=== PATIENT | male | born 1940 | race Caucasian/White ===

== ENCOUNTER 2017-11-30 11:09 | Emergency (ER) | payer MEDICARE, BC ==
[~2017-11-30] VITALS: Ht 182.9 cm; Wt 101.8 kg
[~2017-11-30 11:09] MED LIST: ALMACONE 360 M360 ML PO; BETAPACE160 MG PO; CORGARD40 MG PO; COUMADIN 5MG5 MG/TAB; DYAZIDE 25 MG-31 CAP PO; EFFEXOR 75M75 MG/TAB PO; HUMULIN N PE100 U/ML SC; LEVAQUIN 750MG750 M1 PO; LIPITOR20 MG PO; NORVASC 5MG5 MG/TAB PO; NOVLOG SQ; PREDNISONE10 MG PO; TYLENOL 325MG325 MG PO; VENTOLIN0.09 MG IH; VIAGRA50 M1 PO; XARELTO20 MG PO
[2017-11-30 11:13] VITALS: TEMP 98.1
[2017-11-30 14:05] LABS: BASO # 0.1 (0.0-0.2); BASO % 0.5 % (0.0-2.0); EOS # 0.2 (0.0-0.7); GRAN # 7.2 (1.4-6.5); GRAN % 73.3 % (42.2-75.2); HEMATOCRIT 41.8 % (42.0-52.0); HEMOGLOBIN 14.3 g/dl (13.5-18.0); INR 1.6 (0.8-3.0); LYMPH # 1.7 (1.2-3.4); LYMPH % 16.8 % (20.0-51.0); MEAN CELL VOLUME 90 fl (80.0-100.0); MEAN CORPUSCULAR HEMOGLOBIN 31 pg (27.0-31.0); MEAN CORPUSCULAR HGB CONC 34 g/dl (33.0-37.0); MEAN PLATELET VOLUME 11.1 fl (7.4-10.4); MONO # 0.7 (0.1-0.6); MONO % 7.1 % (1.7-9.3); PLATELET COUNT 192 K/mm3 (130-400); PROTHROMBIN TIME 18.6 SECONDS (9.7-12.8); RED BLOOD COUNT 4.66 M/mm3 (4.20-5.60); REDCELL DISTRIBUTION WIDTH-CV 12.9 % (11.5-14.5)
[2017-11-30 14:07] LABS: PARTIAL THROMBOPLASTIN TIME 33.5 SECONDS (26.0-37.0)
[2017-11-30 14:16] LABS: ALANINE AMINOTRANSFERASE 38 U/L (21-72); ALBUMIN 4.1 gm/dL (3.5-5.0); ALKALINE PHOSPHATASE 63 U/L (50-136); ANION GAP 10 mmol/L (7-16); AST,SGOT 27 U/L (15-37); BILIRUBIN,TOTAL 0.8 mg/dL (0.0-1.0); BLOOD UREA NITROGEN 19 mg/dL (9-20); CALCIUM 9.4 mg/dL (8.4-10.2); CARBON DIOXIDE 28 mmol/L (22-30); CHLORIDE 103 mmol/L (98-107); CREATININE, serum 0.94 mg/dL (0.66-1.25); GLUCOSE 151 mg/dL (74-106); POTASSIUM 3.3 mmol/L (3.4-5.0); SODIUM 141 mmol/L (137-145); TOTAL PROTEIN 6.9 gm/dL (6.4-8.2)
[2017-11-30 14:27] LABS: TROPONIN-I < 0.012 ng/mL (0.000-0.034)
[2017-11-30 16:16] VITALS: BP 149/92; PULSE 62
== END 2017-11-30 16:17 | disposition home or self-care (01) ==
LOC: COL.ER 11:09
PROVIDERS: Emergency Medicine
DX: G45.9 Transient cerebral ischemic attack, unspecified (principal); E87.6 Hypokalemia; I10 Essential (primary) hypertension; E78.5 Hyperlipidemia, unspecified; Z86.73 Personal history of transient ischemic attack (TIA), and cerebral infarction without residual deficits; Z87.891 Personal history of nicotine dependence; Z95.0 Presence of cardiac pacemaker; Z98.890 Other specified postprocedural states

== ENCOUNTER 2019-02-18 06:50 | Day surgery (SDC) | payer MEDICARE, BC ==
--- NOTE | 2019-02-17 10:19 | NUR ---
LEFT MESSAGE IN REGARDS TO PROCEDURE INSTRUCTIONS.
[2019-02-18] VITALS (7 sets, daily range): BP systolic 111–132; BP diastolic 80–95; PULSE 70–135; TEMP 97–97.9
[~2019-02-18] VITALS: Ht 183 cm; Wt 104.0 kg
[2019-02-18 07:26] LABS: HEMATOCRIT 42.7 % (42.0-52.0); HEMOGLOBIN 14.2 g/dl (13.5-18.0); MEAN CELL VOLUME 90 fl (80.0-100.0); MEAN CORPUSCULAR HEMOGLOBIN 30 pg (27.0-31.0); MEAN CORPUSCULAR HGB CONC 33 g/dl (33.0-37.0); MEAN PLATELET VOLUME 10.8 fl (7.4-10.4); PLATELET COUNT 209 K/mm3 (130-400); RED BLOOD COUNT 4.73 M/mm3 (4.20-5.60); REDCELL DISTRIBUTION WIDTH-CV 13.3 % (11.5-14.5)
[2019-02-18 07:33] LABS: INR 1.8 (0.8-3.0); PROTHROMBIN TIME 20.3 SECONDS (9.7-12.8)
[2019-02-18] MEDS ORDERED: K-DUR20 MEQ PO (07:41)
[2019-02-18] MEDS ORDERED: BETAPACE 120MG120 MG PO (07:42)
[2019-02-18 07:49] LABS: CALCIUM 9.4 mg/dL (8.4-10.2); CREATININE, serum 1.15 (0.66-1.25); POTASSIUM 3.5 mmol/L (3.4-5.0)
[2019-02-18] MEDS ORDERED: BETAPACE160 MG PO (08:57)
--- NOTE | 2019-02-18 09:15 | NUR ---
CV complete, Report from Monico RODRÍGUEZ. Pt sonya well, pt resting well in bed.
--- NOTE | 2019-02-18 10:15 | NUR ---
Pt has ambulated, voided and sonya PO intake s n/v. PIV removed with catheter intact.
--- NOTE | 2019-02-18 10:40 | NUR ---
Pt discharged per w/c by nurse with family.
== END 2019-02-18 13:01 | disposition home or self-care (01) ==
LOC: COL.CAR 06:50
PROVIDERS: Internal Medicine Cardiovascular Disease
DX: I48.4 Atypical atrial flutter (principal); I10 Essential (primary) hypertension; Z95.0 Presence of cardiac pacemaker; I48.0 Paroxysmal atrial fibrillation; H71.90 Unspecified cholesteatoma, unspecified ear; F32.9 Major depressive disorder, single episode, unspecified; E11.9 Type 2 diabetes mellitus without complications; Z79.01 Long term (current) use of anticoagulants; G31.84 Mild cognitive impairment of uncertain or unknown etiology; I34.0 Nonrheumatic mitral (valve) insufficiency; Z86.73 Personal history of transient ischemic attack (TIA), and cerebral infarction without residual deficits; E78.2 Mixed hyperlipidemia; G47.33 Obstructive sleep apnea (adult) (pediatric)
CPT/HCPCS: J2704; J7120

== ENCOUNTER → 2019-04-07 | Outpatient (RCR) | payer MEDICARE, BC ==
[~2019-04-07] MED LIST changes: +BETAPACE 120MG120 MG PO; +K-DUR20 MEQ PO
== END | disposition still patient (30) ==
LOC: WSPT → WSC 01-07 08:58 → WSPT 01-07 09:00
DX: M54.5 Low back pain (principal); R26.89 Other abnormalities of gait and mobility

== ENCOUNTER 2019-04-12 13:00 | Outpatient (RCR) | payer MEDICARE, BC | END 2019-07-11 | LOC: WSPT | DX: R26.89 Other abnormalities of gait and mobility (principal); M54.5 Low back pain ==

== ENCOUNTER 2020-02-18 17:54 | Inpatient (IN) | payer MEDICARE, BC ==
[~2020-02-18] VITALS: Ht 182.9 cm; Wt 98.7 kg
[2020-02-18 19:09] LABS: COLLECTION METHOD CATHETER
[2020-02-18 19:13] LABS: HEMATOCRIT 39.8 % (42.0-52.0); HEMOGLOBIN 13.4 g/dl (13.5-18.0); MEAN CELL VOLUME 90 fl (80.0-100.0); MEAN CORPUSCULAR HEMOGLOBIN 30 pg (27.0-31.0); MEAN CORPUSCULAR HGB CONC 34 g/dl (33.0-37.0); MEAN PLATELET VOLUME 10.9 fl (7.4-10.4); PLATELET COUNT 186 K/mm3 (130-400); RED BLOOD COUNT 4.43 M/mm3 (4.20-5.60); REDCELL DISTRIBUTION WIDTH-CV 13.1 % (11.5-14.5)
[2020-02-18 19:18] LABS: MUCOUS Present /lpf; PH 5 (5-8); SQUAMOUS EPITHELIAL None Seen /hpf; URINE APPEARANCE Clear; URINE BACTERIA Occasional /hpf; URINE BILIRUBIN Negative (NEGATIVE); URINE BLOOD 2+ (NEGATIVE); URINE COLOR Yellow; URINE GLUCOSE Negative (NEGATIVE); URINE KETONE 1+ (NEGATIVE); URINE LEUKOCYTE ESTERASE Negative (NEGATIVE); URINE NITRATE Positive (NEGATIVE); URINE PROTEIN(semi-quant) Negative (NEGATIVE); URINE UROBILINOGEN Negative (NEGATIVE)
[2020-02-18 19:45] LABS: ALBUMIN 3.8 gm/dL (3.5-5.0); BAND 1 % (0-10); BILIRUBIN,TOTAL 1.5 mg/dL (0.0-1.0); CREATININE, serum 0.94 (0.66-1.25); LYMPHOCYTE 1 % (20.0-51.0); NEUTROPHILS 92 % (42.0-75.2); PLATELET ESTIMATE NORMAL (NORMAL); POTASSIUM 3.2 mmol/L (3.4-5.0); TOTAL PROTEIN 6.9 gm/dL (6.4-8.2)
[2020-02-18] MEDS ORDERED: GLUCOPHAGE XR500 M1 PO (22:02)
[2020-02-18] MEDS ORDERED: NORVASC 5MG5 MG/TAB PO (22:05)
[2020-02-18] MEDS ORDERED: MYRBETR50MG PO (22:06)
--- NOTE | 2020-02-18 23:10 | NUR ---
Phone report received by Corie RODRÍGUEZ in ED.
[2020-02-18 23:36] LABS: INR 2.1 (0.8-3.0); PROTHROMBIN TIME 23.2 SECONDS (9.7-12.8)
--- NOTE | 2020-02-18 23:40 | NUR ---
Pt arrived via stretcher to ICU03. Personal belongings include clothing in bag placed into room closet. Bilateral hearing aides and corrective eye wear in place. Pt demonstrated weakness and confusion with orientation questions asked as well as weakness with increased assistance required with transfer with stretcher placed next to ICU bed and pt asked to rotate body in a scooting motion from one to the other. X3 assistance was required in order to get pt situated. Brief in place under hospital gown at this time. Pt is pleasant and cooperative with cares.
[2020-02-18 23:42] LABS: MAGNESIUM 1.7 mg/dL (1.6-2.3)
[2020-02-18 23:44] LABS: SALICYLATE < 1.0 mg/dL
[2020-02-18 23:50] VITALS: O2SAT 97
[2020-02-18 23:52] VITALS: O2SAT 97
[2020-02-18 23:52] LABS: TROPONIN-I < 0.012 ng/mL (0.000-0.035)
[2020-02-18 23:53] LABS: C-REACTIVE PROTEIN 22.6 mg/dL (0.0-0.9)
[2020-02-19] VITALS (682 sets, daily range): BP systolic 136–158; BP diastolic 67–106; PULSE 106–136; TEMP 98.5–100.6; O2SAT 85–98
[2020-02-19 02:56] LABS: LACTATE DEHYDROGENASE 619 U/L (313-618)
[2020-02-19 06:29] LABS: HEMATOCRIT 40.2 % (42.0-52.0); HEMOGLOBIN 13.8 g/dl (13.5-18.0); MEAN CELL VOLUME 90 fl (80.0-100.0); MEAN CORPUSCULAR HEMOGLOBIN 31 pg (27.0-31.0); MEAN CORPUSCULAR HGB CONC 34 g/dl (33.0-37.0); PLATELET COUNT 163 K/mm3 (130-400); RED BLOOD COUNT 4.49 M/mm3 (4.20-5.60); REDCELL DISTRIBUTION WIDTH-CV 13.3 % (11.5-14.5)
[2020-02-19 06:41] LABS: ALANINE AMINOTRANSFERASE 21 U/L (4-49); ALBUMIN 3.8 gm/dL (3.5-5.0); ALKALINE PHOSPHATASE 66 U/L (50-136); ANION GAP 11 mmol/L (7-16); AST,SGOT 24 U/L (15-37); BILIRUBIN,TOTAL 1.6 mg/dL (0.0-1.0); BLOOD UREA NITROGEN 15 mg/dL (9-20); CALCIUM 8.7 mg/dL (8.4-10.2); CARBON DIOXIDE 24 mmol/L (22-30); CHLORIDE 96 mmol/L (98-107); CREATININE, serum 0.81 (0.66-1.25); GLUCOSE 159 mg/dL (74-106); POTASSIUM 3.1 mmol/L (3.4-5.0); SODIUM 131 mmol/L (137-145); TOTAL PROTEIN 6.8 gm/dL (6.4-8.2)
[2020-02-19 06:58] LABS: INR 1.8 (0.8-3.0); PROTHROMBIN TIME 20.7 SECONDS (9.7-12.8)
[2020-02-19 07:06] LABS: TROPONIN-I 6 HR POST INITIAL < 0.012 ng/mL (0.000-0.034)
--- NOTE | 2020-02-19 07:30 | NUR ---
Bedside report provided to Gloria RODRÍGUEZ. Pt resting in bed at this time asking to use the bed so. Assistance provided. Pt assisted X2 staff members for repositioning up in bed. Pt able to turn side to side X1 staff assist. Following commands.
[2020-02-19 07:32] LABS: TSH w REFLEX 0.896 uIU/mL (0.465-4.680)
--- NOTE | 2020-02-19 08:08 | NUR ---
Report received from Hellen RODRÍGUEZ and care resumed.
[2020-02-19 08:26] LABS: BAND 2 % (0-10); LYMPHOCYTE 6 % (20.0-51.0); NEUTROPHILS 86 % (42.0-75.2)
[2020-02-19 08:27] LABS: PLATELET ESTIMATE NORMAL (NORMAL)
[2020-02-19 17:09] LABS: ARTERIAL BLD GAS TCO2 CT 20.6; ARTERIAL BLOOD GAS BASE EXCESS -1.3 (-2-2); ARTERIAL BLOOD GAS HCO3 19.8 meq/L (22-26); ARTERIAL BLOOD GAS PCO2 25.2 mmHg (35-45); ARTERIAL BLOOD GAS PO2 53.8 mmHg (80-100); ARTERIAL BLOOD GAS pH 7.51 (7.35-7.45)
--- NOTE | 2020-02-19 22:45 | NUR ---
Called patient's grandson, Daryl, back. Updated him and family on patients day and changes to plan of care. Informed them that his covid swab resulted as negative, however they are considering swabbing him again due to increased oxygen demand today. Told Daryl and family that they will be updated tomorrow after the doctors round.
[2020-02-20] VITALS (1087 sets, daily range): BP systolic 62–142; BP diastolic 06–99; PULSE 91–128; TEMP 97.7–98.3; O2SAT 75–100
--- NOTE | 2020-02-20 01:40 | NUR ---
Called Orquidea regarding pateints status and needing increased oxygen. patient now on 13.5L NC. She then put in orders for ABG and CT of chest.
[2020-02-20 02:29] LABS: ARTERIAL BLD GAS O2 SATURATION 92.9 % (92-100); ARTERIAL BLD GAS TCO2 CT 18.9; ARTERIAL BLOOD GAS BASE EXCESS -3.8 (-2-2); ARTERIAL BLOOD GAS HCO3 18.1 meq/L (22-26); ARTERIAL BLOOD GAS PCO2 25.6 mmHg (35-45); ARTERIAL BLOOD GAS PO2 62.4 mmHg (80-100); ARTERIAL BLOOD GAS pH 7.47 (7.35-7.45)
--- NOTE | 2020-02-20 02:45 | NUR ---
Patient back from CT, results showed MORAIMA LL PNA and MORAIMA pleural effusions. ABX changed, IVF d/c'd, 40mg IV lasix ordered and patient will be put on bipap. Also, reswabbed for COVID-19 and sent to lab.
[2020-02-20 05:40] LABS: HEMATOCRIT 42.6 % (42.0-52.0); HEMOGLOBIN 14.4 g/dl (13.5-18.0); MEAN CELL VOLUME 89 fl (80.0-100.0); MEAN CORPUSCULAR HEMOGLOBIN 30 pg (27.0-31.0); MEAN CORPUSCULAR HGB CONC 34 g/dl (33.0-37.0); MEAN PLATELET VOLUME 11.2 fl (7.4-10.4); PLATELET COUNT 184 K/mm3 (130-400); RED BLOOD COUNT 4.78 M/mm3 (4.20-5.60); REDCELL DISTRIBUTION WIDTH-CV 13.2 % (11.5-14.5)
[2020-02-20 05:54] LABS: INR 2.7 (0.8-3.0); PROTHROMBIN TIME 30.1 SECONDS (9.7-12.8)
[2020-02-20 05:55] LABS: ALBUMIN 3.6 gm/dL (3.5-5.0); BILIRUBIN,TOTAL 1.3 mg/dL (0.0-1.0); CALCIUM 8.1 mg/dL (8.4-10.2); CREATININE, serum 0.77 (0.66-1.25); MAGNESIUM 1.8 mg/dL (1.6-2.3); POTASSIUM 4.1 mmol/L (3.4-5.0)
[2020-02-20 06:10] LABS: BAND 5 % (0-10); LYMPHOCYTE 5 % (20.0-51.0); NEUTROPHILS 88 % (42.0-75.2); PLATELET ESTIMATE NORMAL (NORMAL)
--- NOTE | 2020-02-20 09:25 | NUR ---
SW contacted the patient's , Mona (ph#[phone]), to discuss discharge plan. The patient is on COVID precautions and pending results. The patient lives [place] with his . Mona reports that the patient started needing assistance with ADLs right before he was admitted [facility] and that he has a cane, walker, and wheelchair. The patient's PCP is Dr. Bryson Stover and he receives his medications at [facility]. The patient does not have advanced directives in EMR, but Mona reports that he does have them completed at at home. She states that she is the patient's DPOA-HC. Mona reports that she would be excited for the patient to return home. The patient was requiring 13 liters of oxygen. He was switched to a bipap. SW to continue to follow.
--- NOTE | 2020-02-20 12:00 | NUR ---
Pt self-discontinued external catheter stating "It was very uncomfortable, I let you know when I need to pee, or just put the urinal right there on the bed and I will use it"
--- NOTE | 2020-02-20 12:45 | NUR ---
Pt's spouse Mona called to provide update, pt's daughter and grandson on speaker phone. Updated on MD Nir and MD Gualberto's plan to intubate pt. Pt verbally agrees to intubation with mechanical ventilation - although pt not able to fully comprehend. Spouse Mona and family standing-by all agrees with plan to intubate and mechanically ventilate pt using [facility]. MD Nir to call family now for informed consent
--- NOTE | 2020-02-20 14:50 | NUR ---
Prior to now, pt has self-removed the BiPAP mask one time per hour due to disorientation and confusion - pt easily reoriented (with limited recall) and educated on importance of continuous use of BiPAP mask due to respiratory status. Pt remains disoriented/confused but now compliant with continuous BiPAP use since 1300. 1400 pt's spouse and other family called on room phone and family able to have conversation with each other. MD Nir to call family soon to explain plan of care involving mechanical ventilation then anesthesia will perform intubation
--- NOTE | 2020-02-20 15:15 | NUR ---
MD Nir states plan to reconsider intubation at this time - plan for ABG at 1630, and talk with MD Gualberto again after results of ABG
--- NOTE | 2020-02-20 16:14 | NUR ---
Pt voiding in urinal, requires assistance of one but remains continent and able to state need to urinate.
[2020-02-20 17:01] LABS: ARTERIAL BLD GAS TCO2 CT 18.3; ARTERIAL BLOOD GAS BASE EXCESS -4.9 (-2-2); ARTERIAL BLOOD GAS HCO3 17.5 meq/L (22-26); ARTERIAL BLOOD GAS PCO2 26.2 mmHg (35-45); ARTERIAL BLOOD GAS pH 7.44 (7.35-7.45)
[2020-02-20 17:02] LABS: ARTERIAL BLOOD GAS PO2 146.6 mmHg (80-100)
--- NOTE | 2020-02-20 18:04 | NUR ---
MD Nir notified pt drowsy and hypotensive - pt able to open eyes and follow commands - Precedex gtt discontinued (proper rate and dose confirmed with initiation rate/dose), esmolol to be titrated q5min per TORB from MD Nir 1839 MD Nir updated last vitals: 87/68(77); HR:108 ; SpO2:97% on 50%FiO2 - no further orders.
--- NOTE | 2020-02-20 18:46 | NUR ---
Levophed gtt scanned and placed on standby
--- NOTE | 2020-02-20 19:10 | NUR ---
Bed alarm checked and is on for Exiting setting
--- NOTE | 2020-02-20 19:29 | NUR ---
Abeba Dunn John, and Daryl called to update, all questions answered.
[2020-02-21] VITALS (872 sets, daily range): BP systolic 118–170; BP diastolic 86–121; PULSE 73–149; TEMP 97.6–98.7; O2SAT 85–100
--- NOTE | 2020-02-21 00:45 | NUR ---
Patient has had multiple complaints of the rectal tube being uncomfortable. Patient requests for it to be taken out. DIscussed with patient that he hasnt been able to get up to the commode safely and he is having very frequent loose stools. Tylenol was provided for discomfort. Patient called before medication had time to kick in. Patient refuses all comfort measures to include turning off his back, moving the tubing, medications, and using tv to distract. Patient refuses to try despite teaching. Rectal tube was working perfectly. Rectal tube removed. Pericare provided.
[2020-02-21 05:18] LABS: ARTERIAL BLD GAS O2 SATURATION 97.1 % (92-100); ARTERIAL BLD GAS TCO2 CT 17.4; ARTERIAL BLOOD GAS BASE EXCESS -4.6 (-2-2); ARTERIAL BLOOD GAS HCO3 16.7 meq/L (22-26); ARTERIAL BLOOD GAS PO2 85.2 mmHg (80-100); ARTERIAL BLOOD GAS pH 7.49 (7.35-7.45)
[2020-02-21 05:21] LABS: ARTERIAL BLOOD GAS PCO2 22.2 mmHg (35-45)
[2020-02-21 05:43] LABS: BASO % 0.3 % (0.0-2.0); EOS # 0.1 (0.0-0.7); GRAN # 9.6 (1.4-6.5); GRAN % 81.9 % (42.2-75.2); LYMPH # 0.9 (1.2-3.4); LYMPH % 7.5 % (20.0-51.0); MEAN CELL VOLUME 90 fl (80.0-100.0); MEAN CORPUSCULAR HGB CONC 34 g/dl (33.0-37.0); MONO % 8.7 % (1.7-9.3); PLATELET COUNT 186 K/mm3 (130-400); RED BLOOD COUNT 3.86 M/mm3 (4.20-5.60); REDCELL DISTRIBUTION WIDTH-CV 13.2 % (11.5-14.5)
[2020-02-21 05:49] LABS: INR 1.9 (0.8-3.0); PROTHROMBIN TIME 20.8 SECONDS (9.7-12.8)
[2020-02-21 06:02] LABS: ALBUMIN 2.8 gm/dL (3.5-5.0); BILIRUBIN,TOTAL 0.7 mg/dL (0.0-1.0); CALCIUM 7.6 mg/dL (8.4-10.2); CREATININE, serum 0.98 (0.66-1.25); TOTAL PROTEIN 5.6 gm/dL (6.4-8.2)
[2020-02-21 06:07] LABS: POTASSIUM 2.9 mmol/L (3.4-5.0)
[2020-02-21 06:20] LABS: HEMATOCRIT 34.6 % (42.0-52.0); MEAN CORPUSCULAR HEMOGLOBIN 30 pg (27.0-31.0)
[2020-02-21 06:21] LABS: HEMOGLOBIN 11.7 g/dl (13.5-18.0)
--- NOTE | 2020-02-21 12:09 | NUR ---
The patient's COVID results came back negative. The patient has been reduced to 4 liters of supplemental oxygen and is more awake and alert today. SW asked the hospitalist for PT/OT to be ordered. SW to continue to follow.
--- NOTE | 2020-02-21 19:30 | NUR ---
MD Jan notified of abdominal pain, distention, firmness and frequent urges to have BM with no results (throughout the day with with urges and no results). MD will see pt soon, then potentially order Xray of abdomen.
--- NOTE | 2020-02-21 19:37 | NUR ---
Pt had BM - see I&O intervention
--- NOTE | 2020-02-21 19:45 | NUR ---
Bedside report received from ANNE Chadwick
--- NOTE | 2020-02-21 22:35 | NUR ---
Rectal tube placed at this time. Patient tolerated ok. Balloon inflated with water to 45ml. Pericare provided. Will continue to monitor.
--- NOTE | 2020-02-21 23:45 | NUR ---
Patient calls at this time and wants the rectal tube removed at this time. Patient has only had the tube for 1hr. Attempted to teach the patient and provide other options for comfort and distraction to include watching TV, turning to his side, and trying some tylenol. Patient did not allow tylenol any time to kick in. He refuses all teaching and refuses to try any comfort measures. Rectal tube removed. Pericare provided.
[2020-02-22] VITALS (638 sets, daily range): BP systolic 95–172; BP diastolic 65–129; PULSE 69–142; TEMP 97.1–97.9; O2SAT 78–100
--- NOTE | 2020-02-22 04:00 | NUR ---
Patient has had over 20 liquid stools tonight as well as constant dribbling and urination with movement. Patient calls for the restroom every 10-20mins. Patient requires a heavy 2x assist to get up to bedside commode. Bedpan is being used now.
[2020-02-22 06:09] LABS: BASO % 0.3 % (0.0-2.0); EOS # 0.3 (0.0-0.7); EOS % 2.6 % (0-4.0); GRAN # 9.3 (1.4-6.5); HEMOGLOBIN 12.9 g/dl (13.5-18.0); LYMPH % 7.9 % (20.0-51.0); MEAN CELL VOLUME 89 fl (80.0-100.0); MEAN CORPUSCULAR HEMOGLOBIN 30 pg (27.0-31.0); MEAN CORPUSCULAR HGB CONC 34 g/dl (33.0-37.0); MEAN PLATELET VOLUME 10.7 fl (7.4-10.4); MONO # 1.4 (0.1-0.6); MONO % 11.5 % (1.7-9.3); PLATELET COUNT 248 K/mm3 (130-400); RED BLOOD COUNT 4.27 M/mm3 (4.20-5.60); REDCELL DISTRIBUTION WIDTH-CV 13.6 % (11.5-14.5)
[2020-02-22 06:14] LABS: INR 1.8 (0.8-3.0); PROTHROMBIN TIME 19.8 SECONDS (9.7-12.8)
[2020-02-22 06:18] LABS: ALBUMIN 3.3 gm/dL (3.5-5.0); BILIRUBIN,TOTAL 0.8 mg/dL (0.0-1.0); CALCIUM 8.3 mg/dL (8.4-10.2); CREATININE, serum 0.93 (0.66-1.25); POTASSIUM 3.2 mmol/L (3.4-5.0); TOTAL PROTEIN 6.2 gm/dL (6.4-8.2)
--- NOTE | 2020-02-22 07:15 | NUR ---
Patient has had an additional 20 stools since 4am. Patient has been confused and trying to climb out of bed since dose of ativan given. Bed alarm has been on. With the increase confused patient has been calling more frequently for the bedpan as he doesnt remember that he had just went 4mins prior. Despite teaching and showing him that he has already gone, he continues to request to get on the bedpan. Patient has scant amounts of stool each time, not enough to reach the bedpan. Will continue to monitor.
--- NOTE | 2020-02-22 07:20 | NUR ---
Bedside report given to ANNE Cid
--- NOTE | 2020-02-22 08:00 | NUR ---
Pt anxious with mild confusion, calls out for assistance with bedpan 4 times since 7am. Discussed with Dr Burciaga. Orders for Precedex. Gtt started with relief noted within 5min of starting.
--- NOTE | 2020-02-22 10:00 | NUR ---
The patient is to have a NICOLE with cardioversion today. He continues to have some confusion and tremors. SW contacted the patient's , Mona, to review discharge plan and discussed post-acute rehab. The patient's daughter, Abeba, was also on the phone. Mona and Abeba report that they would like for the patient to return back home upon discharge. Mona reports that two of her children will be able to help them about. SW discussed home health services. Mona was agreeable to try home health and chose [facility]. SAHRA contacted and faxed a referral to Almita at [facility]. SW awaiting their screen.
--- NOTE | 2020-02-22 11:45 | NUR ---
NICOLE cardioversion c Dr Zendejas at bedside. Synced/shocked at 150J with immediate conversion to Paced rhythm. Anesthesia overseeing sedation. Placed on Bipap-Esmolol gtt dcd. Precedex continued at 0.2mcg/kg. Tolerating well.
--- NOTE | 2020-02-22 14:50 | NUR ---
Almita, at [facility], reports that they are able to accept the patient for services. SW to inform the patient's family and will continue to follow.
[2020-02-23] VITALS (793 sets, daily range): BP systolic 149–167; BP diastolic 89–106; PULSE 69–82; TEMP 97.6–98.9; O2SAT 88–100
--- NOTE | 2020-02-23 07:00 | NUR ---
Report given to ANNE Chadwick.
[2020-02-23 07:24] LABS: ALBUMIN 3.2 gm/dL (3.5-5.0); BILIRUBIN,TOTAL 0.7 mg/dL (0.0-1.0); CALCIUM 8.4 mg/dL (8.4-10.2); CREATININE, serum 1.06 (0.66-1.25); PHOSPHOROUS 2.9 mg/dL (2.5-4.5); POTASSIUM 3.3 mmol/L (3.4-5.0)
[2020-02-23 07:55] LABS: BASO # 0.1 (0.0-0.2); BASO % 0.6 % (0.0-2.0); EOS # 0.5 (0.0-0.7); EOS % 4.6 % (0-4.0); GRAN # 7.5 (1.4-6.5); GRAN % 72.2 % (42.2-75.2); HEMOGLOBIN 11.6 g/dl (13.5-18.0); LYMPH # 1.2 (1.2-3.4); LYMPH % 11.4 % (20.0-51.0); MEAN CELL VOLUME 92 fl (80.0-100.0); MEAN CORPUSCULAR HEMOGLOBIN 30 pg (27.0-31.0); MEAN CORPUSCULAR HGB CONC 33 g/dl (33.0-37.0); MEAN PLATELET VOLUME 11.1 fl (7.4-10.4); MONO # 1.1 (0.1-0.6); MONO % 10.4 % (1.7-9.3); PLATELET COUNT 226 K/mm3 (130-400); RED BLOOD COUNT 3.87 M/mm3 (4.20-5.60); REDCELL DISTRIBUTION WIDTH-CV 13.7 % (11.5-14.5)
[2020-02-23 07:56] LABS: HEMATOCRIT 35.6 % (42.0-52.0)
--- NOTE | 2020-02-23 13:02 | NUR ---
Report phoned to ANNE Basilio
[2020-02-24] VITALS (1193 sets, daily range): BP systolic 110–180; BP diastolic 68–116; PULSE 74–116; TEMP 97–97.9; O2SAT 84–99
--- NOTE | 2020-02-24 01:35 | NUR ---
Called carmen and spoke to regarding patient having high SBP in the 160-'170's and DBP in the 120's. He gave a verbal phone order to administer Labetolol 10mg, IV PRN Q6hr for SBP >140.
--- NOTE | 2020-02-24 04:17 | NUR ---
Called back again regarding SBP's that increased to 180's over 130's. He gave a verbal phone order to give a one time dose of Labetolol IV, 20mg.
--- NOTE | 2020-02-24 04:30 | NUR ---
Patient complaining of 9/10 abdominal pain. RN noticed he went back to Afib and still having high SBP's. An order for an EKG was put in.
--- NOTE | 2020-02-24 05:45 | NUR ---
Patient c/o increased abdominal pain and pain in his bladder area. Abdomen is firm and distended. RN did a bladder scan and it revealed more than 1200ml in bladder.
--- NOTE | 2020-02-24 05:51 | NUR ---
Called Irving and left a message with the RN regarding patient going back into afib, having abdominal pain, and having an abnormal EKG and high SBP's.
--- NOTE | 2020-02-24 05:57 | NUR ---
called back and was told all concerns of patient, he said he would order metropolol and for a valerio catheter to get placed due to bladder scan revealing more than 1200ml in bladder. However, he never put orders in and instead videoed into the room and said he will let cardiology handle it.
--- NOTE | 2020-02-24 06:00 | NUR ---
Cardiology paged regarding patient going back into afib and abnormal EKG results of ST depression. No call back was given at this time.
--- NOTE | 2020-02-24 06:00 | NUR ---
was called to ask for order to place valerio cather. He said that was alright and a verbal phone order was put in and valerio cather was placed.
[2020-02-24 06:13] LABS: BASO # 0.1 (0.0-0.2); BASO % 0.4 % (0.0-2.0); EOS # 0.6 (0.0-0.7); EOS % 4.4 % (0-4.0); GRAN # 9.7 (1.4-6.5); GRAN % 72.9 % (42.2-75.2); HEMATOCRIT 39.9 % (42.0-52.0); HEMOGLOBIN 13.4 g/dl (13.5-18.0); LYMPH # 1.6 (1.2-3.4); LYMPH % 11.7 % (20.0-51.0); MEAN CELL VOLUME 89 fl (80.0-100.0); MEAN CORPUSCULAR HEMOGLOBIN 30 pg (27.0-31.0); MEAN CORPUSCULAR HGB CONC 34 g/dl (33.0-37.0); MEAN PLATELET VOLUME 10.5 fl (7.4-10.4); MONO # 1.2 (0.1-0.6); MONO % 9.4 % (1.7-9.3); PLATELET COUNT 252 K/mm3 (130-400); RED BLOOD COUNT 4.48 M/mm3 (4.20-5.60); REDCELL DISTRIBUTION WIDTH-CV 13.4 % (11.5-14.5)
--- NOTE | 2020-02-24 06:15 | NUR ---
Sage catheter placed, instantly got out 1350ml of urine out and patient immediately art relief. Blood pressures also started to trend down. Urine is clear and light yello.
[2020-02-24 06:26] LABS: ALBUMIN 3.8 gm/dL (3.5-5.0); BILIRUBIN,TOTAL 0.8 mg/dL (0.0-1.0); CREATININE, serum 0.96 (0.66-1.25); MAGNESIUM 1.7 mg/dL (1.6-2.3); POTASSIUM 3.1 mmol/L (3.4-5.0); TOTAL PROTEIN 6.9 gm/dL (6.4-8.2)
--- NOTE | 2020-02-24 07:06 | NUR ---
EKG OBTAINED, ACUTE WY WAS RESULT. PRINT OUT OF EKG GIVEN TO RN.
--- NOTE | 2020-02-24 07:15 | NUR ---
Report given to ANNE Cid. She was notified that cardiology was paged and did not call back regarding the patient going back into afib/aflutter. She said she would let him know and give them a page again.
--- NOTE | 2020-02-24 19:15 | NUR ---
RECEIVED REPORT FROM ANNE KERN. PT LYING IN BED ON RA. VSS. SEE GTT TITRATION FLOWSHEET. VSS. CALL LIGHT WITHIN REACH. PT LAUGHING AND CHATTING WELL WITH NURSES. FC PATENT AND DRAINING TO GRAVITY.
[2020-02-25] VITALS (644 sets, daily range): BP systolic 118–163; BP diastolic 91–111; PULSE 104–129; TEMP 97.1–98; O2SAT 81–98
--- NOTE | 2020-02-25 03:31 | NUR ---
ZOLTAN REYES NOTIFIED OF PT'S HR CONSISTENTLY STAYING ABOVE 110 TO 130 AFIB. PHYSICIAN STATES TO CONTACT CARDIOLOGY FOR FURTHER INSTRUCTIONS.
--- NOTE | 2020-02-25 03:35 | NUR ---
SPOKE TO DR ARITA ABOUT PT'S HR STAYING BETWEEN 110-130 MOSTLY , PHYSICIAN STATES OK TO TITRATE CARDIZEM GTT UP TO MAX ACCORDING TO PROTOCOL, SEE MAR FOR NEW ORDERS.
[2020-02-25 06:20] LABS: BASO % 0.4 % (0.0-2.0); EOS # 0.5 (0.0-0.7); EOS % 4.6 % (0-4.0); GRAN # 7.5 (1.4-6.5); GRAN % 66.7 % (42.2-75.2); HEMATOCRIT 40.3 % (42.0-52.0); HEMOGLOBIN 13.6 g/dl (13.5-18.0); LYMPH # 1.7 (1.2-3.4); LYMPH % 15.2 % (20.0-51.0); MEAN CELL VOLUME 88 fl (80.0-100.0); MEAN CORPUSCULAR HEMOGLOBIN 30 pg (27.0-31.0); MEAN CORPUSCULAR HGB CONC 34 g/dl (33.0-37.0); MEAN PLATELET VOLUME 10.3 fl (7.4-10.4); MONO # 1.3 (0.1-0.6); MONO % 11.8 % (1.7-9.3); PLATELET COUNT 275 K/mm3 (130-400); RED BLOOD COUNT 4.56 M/mm3 (4.20-5.60); REDCELL DISTRIBUTION WIDTH-CV 13.3 % (11.5-14.5)
[2020-02-25 06:36] LABS: ALANINE AMINOTRANSFERASE 30 U/L (4-49); ALBUMIN 3.6 gm/dL (3.5-5.0); AST,SGOT 35 U/L (15-37); BILIRUBIN,TOTAL 0.8 mg/dL (0.0-1.0); BLOOD UREA NITROGEN 11 mg/dL (9-20); CARBON DIOXIDE 29 mmol/L (22-30); GLUCOSE 139 mg/dL (74-106); MAGNESIUM 1.8 mg/dL (1.6-2.3); SODIUM 135 mmol/L (137-145); TOTAL PROTEIN 6.6 gm/dL (6.4-8.2)
[2020-02-25 06:38] LABS: ALKALINE PHOSPHATASE 62 U/L (50-136); CALCIUM 8.7 mg/dL (8.4-10.2); CHLORIDE 97 mmol/L (98-107)
[2020-02-25 06:39] LABS: POTASSIUM 2.9 mmol/L (3.4-5.0)
[2020-02-25 06:45] LABS: ANION GAP 9 mmol/L (7-16)
--- NOTE | 2020-02-25 19:05 | NUR ---
RECEIVED REPORT FROM ANNE KERN. PT ASSISTED UP IN BED TO EAT DINNER. CALL LIGHT WITHIN REACH. PT ON RA. VSS. FC PATENT AND DRAINING TO GRAVITY.
--- NOTE | 2020-02-25 20:10 | NUR ---
NOTIFIED ZOLTAN REYES OF PT'S RFA WITH SMALL WOUND ABOUT DIME SIZE NOTED WITH WHITE FLUID THAT MOVES UNDER SKIN AND AREA IS RED AND HARD, NO MAJOR TEMP CHANGES BETWEEN DIFFERENT PART OF ARM, PT WARM TO TOUCH, TEMP 98.0 ORALLY. REDDENED AREA 3 INCHES LONG AND ABOUT 1-1.25 INCHES WIDE. PHYSICIAN STATES WILL COME EVAL LATER.
--- NOTE | 2020-02-25 20:40 | NUR ---
ZOLTAN REYES AT BEDSIDE FOR RFA ASSESSMENT OF WOUND. LINES DRAWN AROUND REDNESS AND WOUND CULTURE OBTAINED BY PHYSICIAN. SEE NEW ORDERS.
[2020-02-26] VITALS (691 sets, daily range): BP systolic 121–135; BP diastolic 78–96; PULSE 85–110; TEMP 97–99.6; O2SAT 82–99
[2020-02-26 05:38] LABS: BASO # 0.1 (0.0-0.2); BASO % 0.6 % (0.0-2.0); EOS # 0.5 (0.0-0.7); EOS % 4.9 % (0-4.0); GRAN # 6.8 (1.4-6.5); GRAN % 68.4 % (42.2-75.2); HEMATOCRIT 38.7 % (42.0-52.0); LYMPH # 1.5 (1.2-3.4); LYMPH % 15.1 % (20.0-51.0); MEAN CELL VOLUME 89 fl (80.0-100.0); MEAN CORPUSCULAR HEMOGLOBIN 30 pg (27.0-31.0); MEAN CORPUSCULAR HGB CONC 34 g/dl (33.0-37.0); MONO % 9.9 % (1.7-9.3); PLATELET COUNT 271 K/mm3 (130-400); RED BLOOD COUNT 4.34 M/mm3 (4.20-5.60); REDCELL DISTRIBUTION WIDTH-CV 13.2 % (11.5-14.5)
[2020-02-26 05:42] LABS: CALCIUM 8.4 mg/dL (8.4-10.2); CREATININE, serum 0.94 (0.66-1.25); POTASSIUM 3.2 mmol/L (3.4-5.0)
--- NOTE | 2020-02-26 07:26 | NUR ---
Vancomycin Initial Dosing Pharmacy Note Ordering provider: Orquidea Jiemnez/Diamond Loyola W., MD Indication/duration: CELLULITIS Relevant comorbidities: DM2 LABS: WBC 9.9, SCr 0.9, CrCl >60 Recommendation: vancomycin 10 mg/kg Loading dose: 1.5 grams Maintenance dose: 1 gram every 12 hours Trough goal: 10-15 ug/mL. trough 02/26 @ 1078
[2020-02-27 00:02] VITALS: BP 129/83; PULSE 115; TEMP 99.1
[2020-02-27 03:35] VITALS: BP 148/102; PULSE 105; TEMP 98.6
[2020-02-27 03:55] VITALS: BP 150/90
--- NOTE | 2020-02-27 03:55 | NUR ---
VILLANUEVA WAS DISCONTINUED AT 0350
--- NOTE | 2020-02-27 05:47 | NUR ---
PATIENT CAME UP TO THE UNIT FROM THE ICU. PATIENT HAS SLEPT ALL NIGHT LONG WITH NO COMPLAINTS. PATIENT IS ORIENTATED AND ALERT BUT DOES HAVE PERIODS OF CONFUSION. KAY WAS D/C'ED AT 0350. WILL REPORT OFF TO DAY SHIFT UPON THEIR ARRIVAL
[2020-02-27 07:17] LABS: BASO # 0.1 (0.0-0.2); BASO % 0.5 % (0.0-2.0); EOS # 0.5 (0.0-0.7); GRAN # 9.6 (1.4-6.5); GRAN % 73.8 % (42.2-75.2); HEMATOCRIT 39.6 % (42.0-52.0); HEMOGLOBIN 13.3 g/dl (13.5-18.0); LYMPH # 1.8 (1.2-3.4); LYMPH % 13.9 % (20.0-51.0); MEAN CELL VOLUME 90 fl (80.0-100.0); MEAN CORPUSCULAR HEMOGLOBIN 30 pg (27.0-31.0); MEAN CORPUSCULAR HGB CONC 34 g/dl (33.0-37.0); MEAN PLATELET VOLUME 10.3 fl (7.4-10.4); MONO # 0.9 (0.1-0.6); PLATELET COUNT 290 K/mm3 (130-400); REDCELL DISTRIBUTION WIDTH-CV 13.2 % (11.5-14.5)
[2020-02-27 07:34] VITALS: BP 131/88; PULSE 105; TEMP 98.2
[2020-02-27 07:34] LABS: ALBUMIN 3.5 gm/dL (3.5-5.0); BILIRUBIN,TOTAL 0.6 mg/dL (0.0-1.0); CALCIUM 8.6 mg/dL (8.4-10.2); CREATININE, serum 1.01 (0.66-1.25); MAGNESIUM 1.6 mg/dL (1.6-2.3); TOTAL PROTEIN 6.5 gm/dL (6.4-8.2)
--- NOTE | 2020-02-27 08:00 | NUR ---
Assessment complete. Pt is alert and oriented but talks in a confused manner. His daughter called me just before I went into the room stating that he called her in tears and wanted me to call her back after seeing him. I spoke with him and he was emotional about not seeing his grandson but no distress was related to his health. I attempted to call her back to inform her of this but failed to get an answer. PICC site is CD&I at this time. He denies any pain or discomfort. He is currently sitting in the recliner with chase bed alarm in place. No other needs. Call light is in reach
[2020-02-27] MEDS ORDERED: DOXYCYCLINE 10100 MG PO (11:07)
[2020-02-27] MEDS ORDERED: PACERONE400 MG PO (11:07)
[2020-02-27] MEDS ORDERED: CARDIZEM CD360 MG PO (11:08)
[2020-02-27] MEDS ORDERED: TOPROL XL 50MG50 MG PO (11:08)
[2020-02-27] MEDS ORDERED: K-TAB20 PO (11:09)
[2020-02-27] MEDS ORDERED: PROBIOTIC GOLD1 EACH PO (11:10)
--- NOTE | 2020-02-27 11:39 | NUR ---
Sales Development Associate attended clinical rounds with the team and patient to discharge home today with [facility]. SAHRA contacted patient's , Mona to provide update. SAHRA advised Mona that per PT, Kvng patient needs to have support when he is up. Mona advised that she will be home at all time and that patient's three children are taking turns being at home with patient to provide additional support. SAHRA met with patient and read IM form aloud. Patient verbalized understanding and provided verbal consent as signature. SAHRA placed form in chart and provided copy to patient. SAHRA contacted Kathy at [facility] and faxed discharge orders. No additional needs at this time.
--- NOTE | 2020-02-27 15:15 | NUR ---
Pt left the floor at this time. Belongings were taken. Discharge instructions discussed. No further questions. Escorted out via wheel chair.
--- NOTE | 2020-02-27 17:12 | NUR ---
Pts son and called to clarify why pt had an inhaler in his belongings given that it was not on his discharge medications. I informed her that it was a PRN medication while he was here in hospital but it was not on his discharge medications and that he did not accept or refused it each time it was offered by respiratory therapy during his stay.
== END 2020-02-27 17:14 | disposition home or self-care (01) | DRG 871 ==
LOC: COL.ER 17:54 → ICU 20:37 → MEDICAL 02-26 19:47
PROVIDERS: Emergency Medicine; Internal Medicine; Internal Medicine Pulmonary Disease; Nurse Practitioner; Nurse Practitioner Family; ADMIT Student in an Organized Health Care Education/Training Program
PROC: 02HV33Z Insertion of Infusion Device into Superior Vena Cava, Percutaneous Approach (ICD-10-PCS; 2020-02-20)
PROC: 5A2204Z Restoration of Cardiac Rhythm, Single (ICD-10-PCS; principal; 2020-02-24)
DX: A41.89 Other specified sepsis (principal); G93.41 Metabolic encephalopathy; J18.1 Lobar pneumonia, unspecified organism; J90 Pleural effusion, not elsewhere classified; L03.113 Cellulitis of right upper limb; K52.1 Toxic gastroenteritis and colitis; I48.91 Unspecified atrial fibrillation; G47.33 Obstructive sleep apnea (adult) (pediatric); E11.9 Type 2 diabetes mellitus without complications; I49.5 Sick sinus syndrome; R65.20 Severe sepsis without septic shock; E83.42 Hypomagnesemia; E87.6 Hypokalemia; I25.10 Atherosclerotic heart disease of native coronary artery without angina pectoris; Z20.828 Contact with and (suspected) exposure to other viral communicable diseases; Z95.0 Presence of cardiac pacemaker; Z86.718 Personal history of other venous thrombosis and embolism; Z86.73 Personal history of transient ischemic attack (TIA), and cerebral infarction without residual deficits; Z79.84 Long term (current) use of oral hypoglycemic drugs; Z87.891 Personal history of nicotine dependence; T36.95XA Adverse effect of unspecified systemic antibiotic, initial encounter
CPT/HCPCS: 99223-AI; 99232-AI; 99233-AI; A4314; C1751; C1892; J0282; J0456; J0696; J1160; J1815; J1940; J2060; J2543; J2704; J3370; J3475; J3480; J7030; J7050; J7060; Q9967

== ENCOUNTER 2020-03-05 11:31 | Inpatient (IN) | payer MEDICARE, BC ==
[~2020-03-05] VITALS: Wt 92.8 kg
[~2020-03-05 11:31] MED LIST changes: +CARDIZEM CD360 MG PO; +DOXYCYCLINE 10100 MG PO; +GLUCOPHAGE XR500 M1 PO; +K-TAB20 PO; +MYRBETR50MG PO; +PACERONE400 MG PO; +PROBIOTIC GOLD1 EACH PO; +TOPROL XL 50MG50 MG PO
[2020-03-05 12:15] LABS: BASO # 0.1 (0.0-0.2); BASO % 0.4 % (0.0-2.0); EOS % 0.3 % (0-4.0); GRAN # 10.7 (1.4-6.5); GRAN % 79.7 % (42.2-75.2); HEMATOCRIT 42.5 % (42.0-52.0); LYMPH # 1.6 (1.2-3.4); LYMPH % 11.9 % (20.0-51.0); MEAN CELL VOLUME 90 fl (80.0-100.0); MEAN CORPUSCULAR HEMOGLOBIN 30 pg (27.0-31.0); MEAN CORPUSCULAR HGB CONC 33 g/dl (33.0-37.0); MEAN PLATELET VOLUME 10.7 fl (7.4-10.4); MONO % 7.3 % (1.7-9.3); PLATELET COUNT 352 K/mm3 (130-400); RED BLOOD COUNT 4.72 M/mm3 (4.20-5.60); REDCELL DISTRIBUTION WIDTH-CV 13.3 % (11.5-14.5)
[2020-03-05 12:19] LABS: ALBUMIN 4.2 gm/dL (3.5-5.0); BILIRUBIN,TOTAL 0.8 mg/dL (0.0-1.0); C-REACTIVE PROTEIN 4.1 mg/dL (0.0-0.9); CALCIUM 10.2 mg/dL (8.4-10.2); CREATININE, serum 2.24 (0.66-1.25); POTASSIUM 4.4 mmol/L (3.4-5.0); TOTAL PROTEIN 7.8 gm/dL (6.4-8.2)
[2020-03-05 12:59] LABS: COLLECTION METHOD CATHETER
[2020-03-05 13:10] LABS: PH 5 (5-8); SQUAMOUS EPITHELIAL None Seen /hpf; URINE APPEARANCE Clear; URINE BACTERIA None Seen /hpf; URINE BILIRUBIN Negative (NEGATIVE); URINE BLOOD Negative (NEGATIVE); URINE COLOR Yellow; URINE GLUCOSE Negative (NEGATIVE); URINE KETONE Negative (NEGATIVE); URINE LEUKOCYTE ESTERASE Negative (NEGATIVE); URINE NITRATE Negative (NEGATIVE); URINE PROTEIN(semi-quant) Negative (NEGATIVE); URINE RBC 0-2 /hpf; URINE UROBILINOGEN Negative (NEGATIVE)
--- NOTE | 2020-03-05 13:27 | NUR ---
SAHRA responded to consult. The patient presented to the ED with leg pain. The patient recently discharged from the hospital, 02/26, and returned back home with his family and home health services from [facility]. SAHRA contacted the patient's , Mona. Mona reports that she has the help of her two children, but that the patient has been a two assist to just get to the restroom. She states that she is trying to decide between post-acute rehab at [facility] vs returning back home with home health and 04/05 private duty services. She reports that she would like to talk to the patient first and find out what he would like to do. SAHRA then met with the patient and had his and daughter, Abeba, on speaker phone. The patient's discussed the two options. The patient states that he is unsure and asked his what he thinks. The patient's then reported that she would like to have some more answers from the doctor, before making a decision. She was agreeable for SAHRA to send a referral to [facility], in case they do decide to pursue that. SAHRA contacted and faxed a referral to Teresita at [facility]. Teresita reports that they would require a negative COVID test, before they could accept the patient. SAHRA notified the ED doc and the patient's RN of the above information. SAHRA also contacted and updated Almita at [facility].
[2020-03-05 15:59] VITALS: BP 146/87; PULSE 98; TEMP 97.5
--- NOTE | 2020-03-05 16:00 | NUR ---
Pt arrived to nursing unit at this time from ED. Pt alert and oriented x4. Pt states he is having 4/10 pain to his right groin that is throbbing and radiates to his right knee. Pt oriented to room and call light. Fall risk precautions in place. Bed alarm on. Sage to dependent drainage and without complications. IV to right AC clean, dry, intact and without s/s of infection. Pt denies any needs at this time. Will continue to monitor.
[2020-03-05 16:02] VITALS: BP 146/87; PULSE 98; TEMP 97.5
--- NOTE | 2020-03-05 19:09 | NUR ---
Pt had uneventful shift. Pt sitting up in bed at this time and denies any needs. IV to right AC patent and intact. Sage to dependent drainage. Fall risk precautions in place. Bed alarm on. Call device within reach. Report given to ANNE Zaragoza.
--- NOTE | 2020-03-05 20:00 | NUR ---
Telemetry notified this nurse patient either had 5 beats of V-tach or Afib w/RVR. Dr. Pabon notified, stated to call if patient has 25 beats. No new orders.
[2020-03-05 20:57] VITALS: BP 148/76; PULSE 88; TEMP 98.6
[2020-03-06] VITALS (7 sets, daily range): BP systolic 102–164; BP diastolic 65–106; PULSE 77–111; TEMP 97.9–98.5
--- NOTE | 2020-03-06 04:16 | NUR ---
Patient called out stating he was having pain in his right groin area, similar to the pain that brought him into the hospital. This nurse verified valerio catheter was draining the bladder, 350mL of clear, yellow urine was measured. Telemetry alerted this nurse the patient was having episodes of Afib with RVR vs. V-tach in rapid sucession. During this time, the patient was shaking with pain. Vitals obtained heart rate 111 blood pressure 164/106. EKG obtained. Dr. Pabon contacted reguarding vitals and EKG. Dr. Pabon noted patient has history of Afib parameters given to call if patient heart rate is 120. Patient given pain medication vitals rechecked at 0423 Blood pressure 138/87 heart rate 85. SpO2 92% on room air, patient resting in bed.
--- NOTE | 2020-03-06 06:27 | NUR ---
Patient is alert and oriented, has tremors at baseline. Patient has valerio catheter in place with adequate output this shift. Telemetery had called early in shift reguarding an irregular rhythm see privious notes. Patient refused our CPAP to sleep. The remainder of the shift the painted had been resting in bed with no complaints of pain until 344 when patient called out for right groin pain 10 of 10. Patient was given a [place] and has been resting comfortably since last recheck of vital at 0423. Patient reports pain now at a 4 of 10. Patient has been afebrile this shift.
--- NOTE | 2020-03-06 07:00 | NUR ---
Report rcvd from ANNE Zaragoza. Pt is laying in bed awake at this time. Has no c/o pain or discomfort this morning. Continuing to watch his Afib vs Vtach. Pt is on amiodarone for the Afib. No current concerns will continue to monitor. Assessment completed. No further concerns.
[2020-03-06 08:37] LABS: BASO # 0.1 (0.0-0.2); BASO % 0.6 % (0.0-2.0); EOS # 0.1 (0.0-0.7); EOS % 0.9 % (0-4.0); GRAN # 10.2 (1.4-6.5); HEMATOCRIT 39.1 % (42.0-52.0); HEMOGLOBIN 13.1 g/dl (13.5-18.0); LYMPH # 1.2 (1.2-3.4); LYMPH % 9.6 % (20.0-51.0); MEAN CELL VOLUME 91 fl (80.0-100.0); MEAN CORPUSCULAR HEMOGLOBIN 30 pg (27.0-31.0); MEAN CORPUSCULAR HGB CONC 34 g/dl (33.0-37.0); MEAN PLATELET VOLUME 10.7 fl (7.4-10.4); MONO % 7.6 % (1.7-9.3); PLATELET COUNT 318 K/mm3 (130-400); RED BLOOD COUNT 4.31 M/mm3 (4.20-5.60); REDCELL DISTRIBUTION WIDTH-CV 13.3 % (11.5-14.5)
[2020-03-06 08:45] LABS: CALCIUM 9.4 mg/dL (8.4-10.2); CREATININE, serum 1.88 (0.66-1.25); POTASSIUM 4.1 mmol/L (3.4-5.0)
--- NOTE | 2020-03-06 14:05 | NUR ---
SAHRA had met with the patient and spoke to his family on the phone in the ED yesterday, 03/05. The patient was then admitted for observation. SAHRA contacted the patient's , Mona, to follow up on decision for home health with private duty services vs post-acute rehab. Mona reports that they have still not come to a decision and would like more information from the PA-C/doctor and would like to speak to the patient. SAHRA notified the patient's PA-C. A COVID test has been ordered. SAHRA contacted and faxed updates to Afsaneh at [facility]. SW awaiting their screen.
--- NOTE | 2020-03-06 19:53 | NUR ---
Pt had an uneventful day. No concerns waiting for SNF placement. Report given to ANNE Bach.
[2020-03-07 00:20] VITALS: BP 124/72; PULSE 90; TEMP 98.2
[2020-03-07 04:35] VITALS: BP 150/85; PULSE 98
--- NOTE | 2020-03-07 05:15 | NUR ---
PATIENT HAS BEEN UP MOST OF THE NIGHT ON THE CALL LIGHT. HE HAS BEEN COMPLAINING OF THE VILLANUEVA PULLING AND IT WAS EDUCATED TO HIM THAT THE VILLANUEVA IS IN PLACE AND SHOULD NOT BE PULLING. THE SICKY PART IS ON HIS LEG IS KEEPING THE VILLANUEVA IN PLACE. PATIENT STILL COMPLAINING OF PAIN IN HIS RIGHT GROIN AREA. PRN PAIN MEDICATIONS GIVEN TO PATIENT UPON REQUEST. PATIENT APPEARS TO BE VERY ANXIOUS BUT BRYANT WHEN ASKED. PATIENT FINALLY PUT HIS CPAP ON AROUND [id number]. DENIES ANY OTHER NEEDS AT THIS TIME. WILL REPORT OFF TO DAY SHIFT UPON THEIR ARRIVAL
[2020-03-07 07:13] LABS: BASO # 0.1 (0.0-0.2); BASO % 0.7 % (0.0-2.0); EOS # 0.4 (0.0-0.7); EOS % 3.9 % (0-4.0); GRAN # 7.5 (1.4-6.5); HEMATOCRIT 37.5 % (42.0-52.0); HEMOGLOBIN 12.2 g/dl (13.5-18.0); LYMPH # 1.1 (1.2-3.4); LYMPH % 10.6 % (20.0-51.0); MEAN CELL VOLUME 91 fl (80.0-100.0); MEAN CORPUSCULAR HEMOGLOBIN 30 pg (27.0-31.0); MEAN CORPUSCULAR HGB CONC 33 g/dl (33.0-37.0); MEAN PLATELET VOLUME 11.2 fl (7.4-10.4); MONO # 0.8 (0.1-0.6); MONO % 8.5 % (1.7-9.3); PLATELET COUNT 234 K/mm3 (130-400); RED BLOOD COUNT 4.12 M/mm3 (4.20-5.60); REDCELL DISTRIBUTION WIDTH-CV 13.2 % (11.5-14.5)
[2020-03-07 07:23] LABS: CALCIUM 8.9 mg/dL (8.4-10.2); CREATININE, serum 1.83 (0.66-1.25); POTASSIUM 3.7 mmol/L (3.4-5.0)
[2020-03-07 07:45] VITALS: BP 147/81; PULSE 95; TEMP 97.6
--- NOTE | 2020-03-07 08:18 | NUR ---
REPORT RCVD FROM ANNE GALVEZ. PT IS ON BEDSIDE COMMODE DURING SHIFT REPORT. PT ATTEMPTING BM, HOWEVER, DID NOT HAVE ONE. PT BACK TO BED, C/O SEVERE PAIN 04/20 SHOOTING DOWN THE RIGHT LEG. PT IS NOW EATING BREAKFAST WITHOUT COMPLAINTS. CALL LIGHT WITHIN REACH.
--- NOTE | 2020-03-07 09:30 | NUR ---
PT STATES HE HAS UNCONTROLLABLE PAIN IN THE RIGHT LEG. FROM KNEE TO GROIN. PT GIVEN NORCO FOR PAIN MANAGEMENT. CALL LIGHT WITHIN REACH, BED ALARM ON.
--- NOTE | 2020-03-07 10:48 | NUR ---
SW attended clinical rounds. The patient's and daughter on speaker phone. The patient is to have an MRI today. SW then followed up with the patient to discuss post-acute rehab. The patient reports that he would be agreeable to rehab and that he has been to our IPR in the past. SW contacted the patient's and daughter. The patient's confirms that they would like to pursue with rehab and that their first preference is now [facility] and second is [facility]. SAHRA consulted IPR Director, Tash. SAHRA notified and faxed updates to Afsaneh at [facility]. SW awaiting their screens.
[2020-03-07 11:47] VITALS: BP 105/59; PULSE 94; TEMP 98
[2020-03-07 15:29] VITALS: BP 110/72; PULSE 89; TEMP 97.8
--- NOTE | 2020-03-07 19:11 | NUR ---
Report given to ANNE Bach. No concerns. Call light and phone at bedside. Mona Blunt will arrive tomorrow morning for visitation, and has a list of questions and concerns.
[2020-03-07 19:41] VITALS: BP 141/90; PULSE 102; TEMP 98.4
--- NOTE | 2020-03-07 23:00 | NUR ---
IT WAS PASSED ON TO ME THAT THE PACEMAKER THE PATIENT HAS IS A Adapta pacemaker that was put in on 08/14/14. Device is NOT MRI compatible. Addro1. Ag in [place].
[2020-03-08] VITALS (7 sets, daily range): BP systolic 118–150; BP diastolic 64–89; PULSE 61–115; TEMP 97.2–98.7
--- NOTE | 2020-03-08 01:49 | NUR ---
PATIENT STILL REPORT SEVERE PAIN AT 10/10 AND SECOND NORCO GIVEN TO HELP ALLEVIATE PAIN.
--- NOTE | 2020-03-08 05:19 | NUR ---
PATIENT HAD COMPLAINED OF SEVERE PAIN AT 10/10 SO A SECOND NORCO WAS GIVEN WHICH HELPED THE PATIENT GET THROUGH THE NIGHT. PATIENT HAS BEEN RESTING SINCE THE PAIN MEDICATION. VILLANUEVA IS STILL IN PLACE AND DRAINING. WILL UPDATE DAY SHIFT ON THEIR ARRIVAL
[2020-03-08 07:03] LABS: BASO # 0.1 (0.0-0.2); BASO % 0.7 % (0.0-2.0); EOS # 0.4 (0.0-0.7); EOS % 3.7 % (0-4.0); GRAN # 7.1 (1.4-6.5); GRAN % 70.8 % (42.2-75.2); HEMATOCRIT 37.1 % (42.0-52.0); HEMOGLOBIN 12.1 g/dl (13.5-18.0); LYMPH # 1.6 (1.2-3.4); MEAN CELL VOLUME 90 fl (80.0-100.0); MEAN CORPUSCULAR HEMOGLOBIN 29 pg (27.0-31.0); MEAN CORPUSCULAR HGB CONC 33 g/dl (33.0-37.0); MEAN PLATELET VOLUME 10.7 fl (7.4-10.4); MONO # 0.9 (0.1-0.6); MONO % 8.5 % (1.7-9.3); PLATELET COUNT 282 K/mm3 (130-400); RED BLOOD COUNT 4.14 M/mm3 (4.20-5.60); REDCELL DISTRIBUTION WIDTH-CV 13.2 % (11.5-14.5)
[2020-03-08 07:13] LABS: CALCIUM 8.8 mg/dL (8.4-10.2); CREATININE, serum 1.8 (0.66-1.25); POTASSIUM 3.4 mmol/L (3.4-5.0)
--- NOTE | 2020-03-08 09:32 | NUR ---
Assessment completed, alert/oriented, vital signs stable, reports continued / constant pain to right hip/thigh/knee, reports [place] is not helping very much, pacer is NOT MRI compatible, heart irregular/ a.fib on tele, lungs CTA, no reps.difficulty noted, has tremors/ family refusing neuro consult, is here at this time to see patient and discuss plan of care, present at bedside
--- NOTE | 2020-03-08 14:03 | NUR ---
SW attended clinical rounds. The patient is to have a NICOLE and cardioversion tomorrow morning. SW contacted and faxed updates to Teresita at [facility]. SW awaiting screens from [facility] and [facility]. SW to continue to follow.
--- NOTE | 2020-03-08 19:00 | NUR ---
Received report from Elio. Seen patient awake, sitting in bed. Patient's is at the bedside. Denies any pain. He states this is the first time he doesn't have any pain. With IV at right AC infusing NS at 100ml/hr. Instructed patient he's NPO by midnight. With valerio catheter. Call light within reach.
[2020-03-09 04:07] VITALS: BP 151/81; PULSE 108; TEMP 97.5
--- NOTE | 2020-03-09 05:00 | NUR ---
Patient complains of pain on his right leg with pain score of 10/10. Tele nurse called saying patient is tachycardic but informed her patient is in severe pain. Informed Orquidea via phone call if I can give oral medicine since he's NPO. She said she will take a look at the patient. Tatum PRN given to patient with sips of water since he's been agitated and really in pain.
[2020-03-09 07:36] VITALS: BP 148/95; PULSE 112; TEMP 97.8
[2020-03-09 09:07] LABS: BASO % 0.4 % (0.0-2.0); EOS # 0.2 (0.0-0.7); EOS % 2.1 % (0-4.0); GRAN % 79.5 % (42.2-75.2); HEMOGLOBIN 11.8 g/dl (13.5-18.0); LYMPH # 1.1 (1.2-3.4); LYMPH % 10.6 % (20.0-51.0); MEAN CELL VOLUME 90 fl (80.0-100.0); MEAN CORPUSCULAR HEMOGLOBIN 30 pg (27.0-31.0); MEAN CORPUSCULAR HGB CONC 34 g/dl (33.0-37.0); MEAN PLATELET VOLUME 10.7 fl (7.4-10.4); MONO # 0.7 (0.1-0.6); MONO % 7.1 % (1.7-9.3); PLATELET COUNT 238 K/mm3 (130-400); RED BLOOD COUNT 3.93 M/mm3 (4.20-5.60); REDCELL DISTRIBUTION WIDTH-CV 13.2 % (11.5-14.5)
[2020-03-09 09:09] LABS: HEMATOCRIT 35.2 % (42.0-52.0)
[2020-03-09 09:20] LABS: CALCIUM 8.6 mg/dL (8.4-10.2); CREATININE, serum 1.66 (0.66-1.25); POTASSIUM 3.1 mmol/L (3.4-5.0)
[2020-03-09 11:06] VITALS: BP 144/82; PULSE 71
[2020-03-09 11:17] VITALS: BP 161/88; PULSE 72
[2020-03-09 11:31] VITALS: BP 155/85; PULSE 72
[2020-03-09] MEDS ORDERED: FLOMAX 0.40.4 MG/CAP PO (11:52)
[2020-03-09] MEDS ORDERED: PACERONE400 MG PO (11:54)
[2020-03-09] MEDS ORDERED: NEURONTIN300 MG/CAP PO (11:57)
[2020-03-09] MEDS ORDERED: NORCO 325 MG-51 TAB PO (11:58)
[2020-03-09] MEDS ORDERED: TYLENOL 325MG325 MG PO (11:58)
--- NOTE | 2020-03-09 11:58 | NUR ---
Tash, IPR Director, reports that they are able to accept the patient. SAHRA attended clinical rounds. The patient's , Mona, at bedside. The patient is to discharge today, 03/09, to [facility]. SAHRA notified Teresita at [facility]. No additional needs at this time.
[2020-03-09] MEDS ORDERED: Remove Patch TD (13:31)
[2020-03-09 15:19] VITALS: BP 155/85; PULSE 72; TEMP 97.8
--- NOTE | 2020-03-09 16:40 | NUR ---
NICOLE with Cardioversion to Sinus rhythm was completed today. Patient verbal pain disappear after the procedure but the pain re-surface later. "it is not as worse as it was" Administered norco one time before transfer to [facility]. IV discontinued.
== END 2020-03-09 16:45 | DRG 74 ==
LOC: COL.ER 11:31 → MEDICAL 14:50
PROVIDERS: Emergency Medicine; Physician Assistant; ADMIT Hospitalist
PROC: 5A2204Z Restoration of Cardiac Rhythm, Single (ICD-10-PCS; principal; 2020-03-09)
DX: G57.10 Meralgia paresthetica, unspecified lower limb (principal); N17.9 Acute kidney failure, unspecified; I48.92 Unspecified atrial flutter; I48.20 Chronic atrial fibrillation, unspecified; N13.9 Obstructive and reflux uropathy, unspecified; G47.33 Obstructive sleep apnea (adult) (pediatric); N40.1 Benign prostatic hyperplasia with lower urinary tract symptoms; G25.0 Essential tremor; I10 Essential (primary) hypertension; R33.8 Other retention of urine; I34.0 Nonrheumatic mitral (valve) insufficiency; E87.6 Hypokalemia; M16.11 Unilateral primary osteoarthritis, right hip; E11.9 Type 2 diabetes mellitus without complications; F32.9 Major depressive disorder, single episode, unspecified; F41.9 Anxiety disorder, unspecified; R60.9 Edema, unspecified; R53.81 Other malaise; Z79.84 Long term (current) use of oral hypoglycemic drugs; Z79.01 Long term (current) use of anticoagulants; Z95.0 Presence of cardiac pacemaker; Z86.73 Personal history of transient ischemic attack (TIA), and cerebral infarction without residual deficits; Z87.891 Personal history of nicotine dependence
CPT/HCPCS: 99231-AI; 99232-AI; 99239; G0378; J0696; J1815; J2270; J2405; J3475; J7030

== ENCOUNTER 2020-03-09 12:39 | Inpatient (IN) | payer MEDICARE, BC ==
[~2020-03-09] VITALS: Ht 172.7 cm; Wt 102.2 kg
[~2020-03-09 12:39] MED LIST changes: +FLOMAX 0.40.4 MG/CAP PO; +NEURONTIN300 MG/CAP PO; +NORCO 325 MG-51 TAB PO
[2020-03-09] MEDS ORDERED: Remove Patch TD (13:31)
[2020-03-09 18:30] VITALS: BP 117/70; PULSE 71; TEMP 97.9
--- NOTE | 2020-03-09 19:27 | NUR ---
Patient admitted to IPR room 333. Report was obtained from [facility] medical. Med rec completed. 5 page completed. His at bedside. Patient tolerated dinner. Sarah to resume care. for the night.
[2020-03-09 19:42] VITALS: BP 117/70; PULSE 71; TEMP 97.9
--- NOTE | 2020-03-09 20:30 | NUR ---
PT IN BED. IS ALERT AND ORIENTED X3. HAS TREMORS OF BOTH HANDS. TAKES HS MEDS WITHOUT PROBLEM. DENIES PAIN AT THIS TIME. BED ALARM SET. HAS LOWER LEG SWELLING, SOCKS REMOVED FOR COMFORT.
--- NOTE | 2020-03-10 00:50 | NUR ---
PT CALLS OUT, WANTS VILLANUEVA CATHETER REMOVED, REPORTS DISCOMFORT AT THE INSERTION SITE. MEDICATED WITH NORCO AND WARM COMPRESS APPLIED TO PENIS FOR COMFORT.
--- NOTE | 2020-03-10 04:10 | NUR ---
Resting with eyes closed. Sage draining well.
[2020-03-10 06:07] VITALS: BP 149/89; PULSE 78; TEMP 97.9
[2020-03-10 07:43] LABS: ALBUMIN 3.1 gm/dL (3.5-5.0); BILIRUBIN,TOTAL 0.6 mg/dL (0.0-1.0); CALCIUM 8.7 mg/dL (8.4-10.2); CREATININE, serum 1.62 (0.66-1.25); POTASSIUM 3.7 mmol/L (3.4-5.0); TOTAL PROTEIN 5.9 gm/dL (6.4-8.2)
--- NOTE | 2020-03-10 09:15 | NUR ---
PATIENT IS A&O, WITH SOME CONFUSION. PATIENT ABLE TO STATE NAME, , YEAR, LOCATION, PRESIDENT. SOME CONVERSATION IS CONFUSED. IRREGULAR HEART RHYTHM WITH A REGULAR RATE, VSS. GENERALIZED WEAKNESS NOTED. SIGNIFICANT TREMORS TO BUE. PATIENT GIVEN PO PAIN PILL AT THIS TIME FOR RIGHT HIP PAIN RATED AT AN 8/10 ON A 0-10 SCALE. BOWEL SOUNDS ACTIVE ALL FOUR QUADRANTS. PATIENT TOLERATING DIET WITHOUT ANY COMPLAINTS OF N/V. POSITIVE PEDAL PULSES EQUAL BILATERALLY. 3+ PITTING-EDEMA TO RIGHT FOOT. 2+ PITTING-EDEMA TO LEFT FOOT. 1+ PITTING-EDEMA TO BLE. INDWELLING VILLANUEVA CATHETER TO DEPENDENT DRAINAGE WITH YELLOW URINE AND SEDIMENT PRESENT IN VILLANUEVA BAG. CALL LIGHT WITHIN REACH. NO OTHER NEEDS AT THIS TIME.
--- NOTE | 2020-03-10 13:33 | NUR ---
Passenger Locomotive Engineer offered prayer and support with patient.
--- NOTE | 2020-03-10 16:20 | NUR ---
PATIENT RESTING IN THE CHAIR WITH HIS AT THE BEDSIDE. PATIENT DENIES PAIN. NO NEEDS AT THIS TIME.
[2020-03-10 17:28] VITALS: BP 100/60; PULSE 71; TEMP 98
--- NOTE | 2020-03-10 17:29 | NUR ---
SW met with patient at his bedside to complete intake. Patients was present and SW received permission to discuss information in front of patients spouse. Patient currently resides in [facility] with his spouse Mona [phone] as care support. Patient was independent before admittance. Patient utilizes a walker, wheelchair and a CPAP machine at night. Patients provider is currently Dr. Cortez, with an upcoming appotinemtn, whoever he was not sure when. Patient gets his mediations from [facility] with no concerns. SW received a referral for [facility] services for patient, and he chose services here at [facility]. CECILIO signed, and Tash Forrest emailed. Kojo will continue to follow.
--- NOTE | 2020-03-10 18:57 | NUR ---
REPORT GIVEN TO ANNE MUKHERJEE.
--- NOTE | 2020-03-10 20:40 | NUR ---
PT IN BED, TAKES HS MEDS ONE AT A TIME, INCLUDING NORCO FOR RT LEG PAIN. IS ALERT, ORIENTED X3. BED ALARM SET.
--- NOTE | 2020-03-11 01:07 | NUR ---
PT CALLING OUT FOR HELP, FORGOT HOW TO USE THE CALL LIGHT. ASSISTED TO BATHROOM WITH WALKER AND GAIT BELT, HAS MODERATE SOFT BM. BACK TO BED WITHOUT PROBLEM. RE-ORIENTED ON USE OF CALL LIGHT. BED ALARM ON.
[2020-03-11 06:21] VITALS: BP 123/54; PULSE 78; TEMP 97.6
--- NOTE | 2020-03-11 08:40 | NUR ---
PATIENT HAD LARGE BOWEL MOVEMENT. HALF INSIDE THE BRIEF ON THE WAY TO THE RESTROOM, HALF IN TOILET. ASSISTED WITH TAKING BRIEF OFF AND PUTTING NEW BRIEF ON. ASSISTANCE WITH WIPING. VERBAL QUES TO KEEP BODY INSIDE WALKER. GAIT SHUFFLING. PATIENT LEGS GAVE OUT HE WAS ABOUT TO SIT INTO RECLINER. PATIENT ASSISTED INTO RECLINER WITHOUT INCIDENT. PATIENT STATES THAT THE PAIN IS WHY HE IS HAVING A HARD TIME MOVING.
[2020-03-11 18:09] VITALS: BP 122/69; PULSE 78; TEMP 97.7
--- NOTE | 2020-03-11 19:03 | NUR ---
REPORT GIVEN TO ANNE MUKHERJEE.
--- NOTE | 2020-03-11 20:49 | NUR ---
PT IN BED, NEEDS TO USE THE BATHROOM. TAKES HS MEDS INCLUDING NORCO FOR RT HIP PAIN. ASSISTED TO BR WITH GAIT BELT AND WALKER, TAKES SMALL SHUFFLED STEPS, GAIT STEADY. IS ALERT, ORIENTED X3. HAS MODERATE SOFT BM AND ASSISTED BACK TO BED. BED ALARM ON. HAS EDEMA TO BOTH LOWER LEGS. VILLANUEVA TO BSD WITH YELLOW HAZY URINE. VILLANUEVA CARE GIVEN.
[2020-03-12 06:32] VITALS: BP 128/67; PULSE 108; TEMP 97.8
--- NOTE | 2020-03-12 15:59 | NUR ---
Resident Care Aide met with patient and patient's Mona to follow up from the weekend. Patient states things are going well and he feels comfortable at this hospital. SW will continue to follow.
--- NOTE | 2020-03-12 17:11 | NUR ---
Patient currently resting in bed eating dinner. Patient has been alert and oriented today, answers questions appropriately. Patient was up in bedside recliner for most of the day in between therapy sessions. Patient was able to feed himself during meals, required assistance with putting in one hearing aid this morning, but other self cares were independent. Patient x1 assist to bathroom with walker and gait belt, gait is very unsteady and patient is very weak. Patient had to sit in wheel chair and rest during one trip, could not make it from recliner to toilet. Sage catheter remains in place per order, some blood in the tubing this afternoon, patient states that it got 'tugged' during therapy. Patient denies pain or needs at this time, call light within reach.
[2020-03-12 17:53] VITALS: BP 114/62; PULSE 62; TEMP 97.6
[2020-03-12 18:00] VITALS: BP 110/63; PULSE 71; TEMP 97.8
--- NOTE | 2020-03-12 19:15 | NUR ---
PATIENT UP IN CHAIR DURING CHANGE OF SHIFT REPORT FROM DAY SHIFT NURSEEFRAIN, CHAIR ALARM ON. PATIENT CURRENTLY IN BED AFTER SUPPER W/BED ALARM ON, VILLANUEVA CATH IN PLACE, DRAINING CLEAR YELLOW URINE. DENIES NUMBNESS/TINGLING/CHEST PAIN NOR SHORTNESS OF BREATHE. ANSWER QUESTIONS APPROPIATELY WITH CLEAR SPEECH OBSERVED. NO OTHER NEEDS REPORTED.
--- NOTE | 2020-03-13 00:18 | NUR ---
PATIENT SLEEPING, DOES NOT AWAKEN WHEN DOOR TO ROOM IS OPENED BY STAFF, OBSERVED BREATHING NONLABORED AND EVEN. BED ALARM ON.
--- NOTE | 2020-03-13 02:44 | NUR ---
REQUESTED/GIVEN PAIN MED, SEE eMAR. DENIES ANY OTHER NEEDS. BED ALARM ON.
[2020-03-13 05:09] VITALS: BP 137/99; PULSE 103; TEMP 98.4
--- NOTE | 2020-03-13 06:26 | NUR ---
REQUESTING PAIN MEDS WHEN THEY ARE NEXT AVAILABLE, C/O R LEG PAIN 10/10 PLUS "I CAN'T EVEN ROLL OUT OF BED". BED ALARM ON.
--- NOTE | 2020-03-13 07:18 | NUR ---
PATIENT RESTING IN BED DURING CHANGE OF SHIFT REPORT GIVEN TO DAY SHIFT NURSESANTOS. BED ALARM ON.
--- NOTE | 2020-03-13 10:42 | NUR ---
Patient attending therapies this morning. Patient reporting 7-8/10 pain to right hip that radiates down to his right knee. Given prn pain meds with only some effect. Will continue to monitor.
--- NOTE | 2020-03-13 13:57 | NUR ---
Discussed home meds with Mona. She reported that he was taking all the meds that were in bubble packs. Patient had meds in his room and they were removed and reviewed noting that two of the meds that he had been taking were DC'd prior to coming to [facility] (Potassium ER and Triam/HCTZ). requested that she get the paper work for Disabled Parking Placard. This nurse will get form completed and signed by Dr. Plasencia.
[2020-03-13 16:13] VITALS: BP 95/68; PULSE 72; TEMP 98.1
--- NOTE | 2020-03-13 16:38 | NUR ---
Patient has redness to bottom, see new orders for desenex.
--- NOTE | 2020-03-13 19:50 | NUR ---
PATIENT SLEEPING IN BED DURING CHANGE OF SHIFT REPORT FROM DAY SHIFT NURSESANTOS. DOES NOT AWAKEN WHEN ROOM ENTERED. BED ALARM ON.
--- NOTE | 2020-03-13 19:55 | NUR ---
GAVE REPORT TO NIGHT NURSE.
--- NOTE | 2020-03-13 20:00 | NUR ---
VILLANUEVA CATH IN PLACE AND DRAINING YELLOW URINE. REPORTS STILL HAS PAIN TO RIGHT HIP AT TIMES. REQUESTED TO HAVE PAIN MED WHEN NEXT AVAILABLE FOR COMFORT AT HS, AFTER DISCUSSING LAST PAIN MED DOSE GIVEN TODAY. DENIES NUMBNESS/TINGLING TO EXTREMITIES AT THIS TIME. DENIES CHEST PAIN/DIZZINESS. BED ALARM ON.
--- NOTE | 2020-03-14 | NUR ---
PATIENT SLEEPING WITH BREATHING OBSERVED NONLABORED AND EVEN. DOES NOT AWAKEN WHEN DOOR TO ROOM IS OPENED BY STAFF. BED ALARM ON.
[2020-03-14 04:57] VITALS: BP 128/79; PULSE 104; TEMP 97.8
[2020-03-14 07:09] LABS: BASO % 0.6 % (0.0-2.0); EOS # 0.4 (0.0-0.7); EOS % 5.6 % (0-4.0); GRAN # 4.2 (1.4-6.5); GRAN % 61.3 % (42.2-75.2); HEMATOCRIT 33.3 % (42.0-52.0); HEMOGLOBIN 11.1 g/dl (13.5-18.0); LYMPH # 1.5 (1.2-3.4); LYMPH % 21.9 % (20.0-51.0); MEAN CELL VOLUME 90 fl (80.0-100.0); MEAN CORPUSCULAR HEMOGLOBIN 30 pg (27.0-31.0); MEAN CORPUSCULAR HGB CONC 33 g/dl (33.0-37.0); MONO # 0.7 (0.1-0.6); MONO % 10.3 % (1.7-9.3); PLATELET COUNT 234 K/mm3 (130-400); RED BLOOD COUNT 3.69 M/mm3 (4.20-5.60); REDCELL DISTRIBUTION WIDTH-CV 13.5 % (11.5-14.5)
[2020-03-14 07:22] LABS: CALCIUM 8.7 mg/dL (8.4-10.2); CREATININE, serum 1.89 (0.66-1.25); MAGNESIUM 1.6 mg/dL (1.6-2.3); POTASSIUM 3.2 mmol/L (3.4-5.0)
--- NOTE | 2020-03-14 07:36 | NUR ---
PATIENT UP IN CHAIR DURING CHANGE OF SHIFT REPORT GIVEN TO DAY SHIFT NURSEMARJORIE. CHAIR ALARM ON.
--- NOTE | 2020-03-14 09:00 | NUR ---
Patient assisted up to the chair for breakfast, he tolerated well. Patient was up to the bathroom, one assist with walker & gaitbelt. Patient gaitsteady once up. He does have long standing tremor noted. notified regaurding his am labs-voicemail was left & returned call recived. K+ per protocol started. Patient not starting therapy for the day. Will monitor.
--- NOTE | 2020-03-14 12:38 | NUR ---
Patient did not like his lunch, ice cream provided. He denies the need for pain medication at this time. His now at bedside. He did well with morning therapy
--- NOTE | 2020-03-14 16:31 | NUR ---
Community Development Worker met with patient and patient's Mona to review and provide copy of team conference notes. SW advised that the team will re-evaluate in a week on a discharge date. SAHRA scheduled family meeting for Thursday03/20/20 @ 1300. SAHRA to continue to follow.
--- NOTE | 2020-03-14 16:39 | NUR ---
Left message for Dr. Unger regarding Neuro consult. Awaiting a return call.
--- NOTE | 2020-03-14 16:43 | NUR ---
Call placed to Dr. Unger's office regarding neuro consult for possible parkinsons. Patient is willing to trial Sinemet. Nurse reported that Dr. Unger will be stopping by this evening to see patient.
[2020-03-14 17:55] VITALS: BP 101/62; PULSE 78; TEMP 97.9
--- NOTE | 2020-03-14 18:57 | NUR ---
Patient sitting up in chair, he has done well today. Dr. Unger rounded & written orders received. Patient was at bedside. Patietn encouraged to drink more fluids, urine noted to be concentrated. He denies the need for pain medication, he wants to wait until bedtime. REport to fela
--- NOTE | 2020-03-14 19:20 | NUR ---
PATIENT UP IN CHAIR DURING CHANGE OF SHIFT REPORT FROM DAY SHIFT NURSEMARJORIE. CHAIR ALARM ON. REQUESTS PAIN MEDS TO BE GIVEN TO HS MEDS TONIGHT. NO OTHER NEEDS REPORTED. VILLANUEVA CATH IN PLACE AND DRAINING DARK COLORED URINE.
--- NOTE | 2020-03-14 20:47 | NUR ---
Spoke with patient's today about scheduling an appointment to get a MCKAYLA Scan completed and then following up with Dr. Unegr after that. She had cancelled the last one due to COVID and patient being hospitalized. Scheduling number is [phone] - This can be scheduled sometime after 03/31 per Tash.
--- NOTE | 2020-03-15 00:18 | NUR ---
PATIENT SLEEPING, OBSERVED BREATHING NONLABORED AND EVEN. DOES NOT AWAKEN WHEN DOOR TO ROOM IS OPENED BY STAFF. BED ALARM ON. VILLANUEVA IN PLACE AND DRAINING DARK URINE.
[2020-03-15 03:50] VITALS: BP 128/84; PULSE 104; TEMP 98.5
--- NOTE | 2020-03-15 07:19 | NUR ---
PATIENT RESTING IN BED DURING CHANGE OF SHIFT REPORT GIVEN TO DAY SHIFT NURSEBOBBI. BED ALARM ON.
[2020-03-15 08:01] LABS: CALCIUM 8.9 mg/dL (8.4-10.2); CREATININE, serum 1.97 (0.66-1.25); POTASSIUM 3.8 mmol/L (3.4-5.0)
--- NOTE | 2020-03-15 09:00 | NUR ---
PATIENT REPORTING DISCOMFORT IN THE URETHRA WHILE GETTING READY WITH OT. BACITRACIN OINTMENT APPLIED. VILLANUEVA CATHETER DRAININAGE STEPHIE URINE WITH SEDIMENT PRESENT IN VILLANUEVA BAG. PATIENT DENIES ANY OTHER NEEDS AT THIS TIME.
--- NOTE | 2020-03-15 15:16 | NUR ---
Patient's , Mona provided email addresses for patient's children to oncology social worker and requested copies of team conference notes be sent to them. SW scanned and emailed team conference notes to [email or web address], [email or web address], [email or web address]. SAHRA to continue to follow.
[2020-03-15 17:40] VITALS: BP 122/82; PULSE 92; TEMP 98.2
--- NOTE | 2020-03-15 18:30 | NUR ---
PATIENT REQUESTED NURSE TO LOOK AT HIS CATHETER. HE IS COMPLAINING AGAIN OF DISCOMFORT WITH THE CATHETER. STAT LOCK REMOVED FROM LEFT LEG AND REPOSITIONED ON THE LEFT UPPER THIGH NEAR THE GROIN. VILLANUEVA TUBING FREE OF LOOPS OR KINKS. PRESENT AT THE BEDSIDE. PATIENT DENIES ANY OTHER NEEDS AT THIS TIME.
--- NOTE | 2020-03-15 19:34 | NUR ---
REPORT GIVEN TO ANNE KELLER.
--- NOTE | 2020-03-15 23:09 | NUR ---
Received report from ANNE Lorenz. Pt currently sitting up in bed watching [employer].
--- NOTE | 2020-03-15 23:13 | NUR ---
Pt did get assistance with getting ready for bed. Pt did state that he wasn't feeling pain from his valerio. Pt urine is draining and it's a chaz color. Pt took his night mediations well. Pt has his call light within reach and his bed is in lowest position and his alarm is on .
[2020-03-16 05:07] VITALS: BP 138/88; PULSE 86; TEMP 98
--- NOTE | 2020-03-16 06:42 | NUR ---
Pt called this morning asking for assistance with using the bed side commode. Pt tremors were very bad at this point so called the aide for assistance. Pt stated that he was in a lot of pain. His back was hurting him really bad. Pt was given pain medication at this time. Pt was assisted with getting back to bed. Pt was also assisted with putting his clothes on this morining. Pt is currently back in bed and has his call light within reach and his bed is in lowest position.
--- NOTE | 2020-03-16 07:32 | NUR ---
Reported off to ANNE Lorenz. Pt is currently sitting up in bed eating breakfast. He has his call light within reacha and his bed is in lowest position.
[2020-03-16 08:17] LABS: CREATININE, serum 1.9 (0.66-1.25); POTASSIUM 3.6 mmol/L (3.4-5.0)
--- NOTE | 2020-03-16 14:43 | NUR ---
Activity Therapy Specialist followed up with patient before the weekend. Patient denies any concerns or questions at this time. SW to continue to follow.
[2020-03-16 17:11] VITALS: BP 129/83; PULSE 80; TEMP 97.8
--- NOTE | 2020-03-16 20:02 | NUR ---
PATIENTS REPORTED THAT ONE OF THE PATIENTS HEARING AIDS IS MISSING THIS EVENING. PATIENTS LINENS WERE CHANGED AFTER DINNER AND A FOAM MATTRESS WAS APPLIED TO THE BED. THIS NURSE LOOKED THROUGH THE LINEN CART, FOOD TRAYS AND THE TRASH CAN IN THE SURGICAL UNIT SOILED UTILITY CLOSET. KITCHEN/TRAY LINE, NIGHT NURSE AND AIDE ALL MADE AWARE OF MISSING HEARING AID AND ATTEMPTS TO FIND IT. STAFF WILL CONTINUE TO SEARCH FOR THE MISSING HEARING AID.
--- NOTE | 2020-03-17 02:25 | NUR ---
Patient hearing aid found in patient pocket. Mona notified.
--- NOTE | 2020-03-17 03:49 | NUR ---
Patient had a restful night. Patient ambulated one time in room with walker and one assist. No complaints of pain this shift. Output adequate, urine yellow, cloudy with sediment.
[2020-03-17 05:38] VITALS: BP 127/70; PULSE 86; PULSE 98; TEMP 98.2
[2020-03-17 07:50] VITALS: BP 105/76
--- NOTE | 2020-03-17 10:29 | NUR ---
Patient resting in recliner at this time, call light in reach and alarm set. He denies questions at this time.
--- NOTE | 2020-03-17 10:34 | NUR ---
Patient very weak this morning so was given BSC to use to transfer this AM using gaitbelt and walker. He required lots of queing to stand nose over toes and needed guidance on where to place hands. He did most of the work, with staff steadying and pulling down brief and changing brief. No BM this morning.
[2020-03-17 18:00] VITALS: BP 88/54; PULSE 87; TEMP 98
--- NOTE | 2020-03-17 20:04 | NUR ---
Patient very weak this evening and was given prn pain meds through the day. Will good effect. Patient tolerating sinemet doses this shift. His stopped by and visited this afternoon. Patient denied questions at this time. Blood pressure has been low and patient has been encouraged to drink more water. He said that he would drink more this evening. This nurse reported off to night nurse.
--- NOTE | 2020-03-17 20:30 | NUR ---
PT TAKES HS MEDS WITHOUT PROBLEM. HAS DRANK MOST OF PITCHER OF WATER. APPLIED BACITRACIN TO TIP OF PENIS, VILLANUEVA CATHETER IN PLACE, DRAINING YELLOW URINE WITH SEDIMENT. IS ALERT, ORIENTED X3. BILATERAL LOWER LEG EDEMA NOTED. WANTS TO STAY UP UNTIL 2200.
[2020-03-18 05:18] VITALS: BP 126/81; PULSE 85; TEMP 98.1
--- NOTE | 2020-03-18 07:30 | NUR ---
Bedside shift report received from ANNE Smith. pT in bed resting, wants to have breakfast in bed today, set up tray and bib, will continue to monitor.
--- NOTE | 2020-03-18 09:37 | NUR ---
Assessment charted. PT resting in chair at side of bed. Doing well, answered all orientation questions appropriately but has difficutly at times with communicating sentences. Shakey arms, parkinsonism symptoms. RLE hip to knee pain, PRN pain meds given per request. Pt doing well, denies needs, will continue to monitor.
--- NOTE | 2020-03-18 14:34 | NUR ---
SW received a call from patients nurse about patients asking nurse for HH listing. Nurse indicated that expressed difficulty with caring for patient at [facility] alone. SW reported that she would supply a list of HH services for the to picking tech today when visited. However, SAHRA reviewed patients notes, and discovered that there was a lot of planning for services for patient already, and so SAHRA contacted Mona and indicated that SW will be at meeting and will provide HH services list if requested.
[2020-03-18 17:24] LABS: COLLECTION METHOD CATHETER
--- NOTE | 2020-03-18 17:45 | NUR ---
Pt had difficulty getting from chair to bed today, required assistance of two. Was not moving feet well. at bedside eating supper. called AQUILES Henley with hospitalist for order to check urine for UA since it is cloudier, pt is weaker and pt requests check. Collected. Will give bedside shift report to nightshift nurse who will resume care.
[2020-03-18 17:50] VITALS: BP 91/58; PULSE 70; TEMP 97.5
[2020-03-18 17:50] LABS: BUDDING YEAST Present /hpf; MUCOUS Present /lpf; PH 5 (5-8); SQUAMOUS EPITHELIAL None Seen /hpf; URINE APPEARANCE Turbid; URINE BACTERIA Occasional /hpf; URINE BILIRUBIN Negative (NEGATIVE); URINE BLOOD 3+ (NEGATIVE); URINE COLOR Amber; URINE GLUCOSE Negative (NEGATIVE); URINE KETONE Trace (NEGATIVE); URINE LEUKOCYTE ESTERASE 2+ (NEGATIVE); URINE NITRATE Negative (NEGATIVE); URINE PROTEIN(semi-quant) 2+ (NEGATIVE); URINE RBC >50 /hpf; URINE UROBILINOGEN Negative (NEGATIVE)
--- NOTE | 2020-03-18 19:18 | NUR ---
PATIENT RESTING IN BED DURING CHANGE OF SHIFT REPORT FROM DAY SHIFT NURSE, MARY KATE, WITH PATIENT'S AT BED SIDE INITIALLY BUT HAD LEFT PRIOR TO VILLANUEVA CATHETER REPLACEMENT. RECEIVED ORDER TO REPLACE VILLANUEVA CATHETER WITH NEW VILLANUEVA CATHETER, INSERTED PER P/P 16 JORDANIAN COUDE BY ANNE HARTMANN WITH NO PROBLEMS OR COMPLAINTS FROM PATIENT WITH URINE RETURN OF MED STEPHIE URINE WITH SEDIMENT. NO ORDERS FOR UA TO BE DONE. BED ALARM ON.
[2020-03-18 20:45] VITALS: BP 132/78
--- NOTE | 2020-03-19 01:19 | NUR ---
COMPLAINING OF RIGHT HIP PAIN, SEE eMAR FOR PAIN MEDS GIVEN. BED ALARM ON. NO OTHER NEEDS REPORTED.
--- NOTE | 2020-03-19 02:39 | NUR ---
PATIENT CALLED OUT REPORTING BLOOD ON HIS HAND. OBSERVED WHEN ROOM ENTERED, IV CATHETER WITH LOOP INTACT BUT LAYING ON BED SIDE TABLE WITH IV DRSG/TEGADERM IN PLACE TO RIGHT HAND WITH BLOODY STAINING UNDERNEATH DRESSING AND BELOW DRESSING ON RIGHT HAND KNUCKLES WITH SWELLING UNDER DRESSING. PATIENT STATED HE PULLED AT THE TAPE BECAUSE "IT WAS LOOSE". APPLIED PRESSURE TO RIGHT HAND TO REDUCE SWELLING, THAT REDUCED SWELLING ABOUT 50% ENCOURAGING PATIENT TO PERFORM HAND SUPERVISOR CELL EFFICIENCY EXERCISES TO FURTHER REDUCE SWELLING. INFORMED PATIENT THAT IV SITE WILL BE RESTARTED CLOSER TO IV MED TIME. BED ALARM ON.
[2020-03-19 05:06] VITALS: BP 132/79; PULSE 73; TEMP 98.4
[2020-03-19 06:57] LABS: BASO % 0.4 % (0.0-2.0); EOS # 0.4 (0.0-0.7); EOS % 4.1 % (0-4.0); GRAN # 6.3 (1.4-6.5); GRAN % 69.3 % (42.2-75.2); HEMOGLOBIN 10.4 g/dl (13.5-18.0); LYMPH # 1.5 (1.2-3.4); MEAN CELL VOLUME 90 fl (80.0-100.0); MEAN CORPUSCULAR HEMOGLOBIN 30 pg (27.0-31.0); MEAN CORPUSCULAR HGB CONC 33 g/dl (33.0-37.0); MEAN PLATELET VOLUME 11.1 fl (7.4-10.4); MONO # 0.8 (0.1-0.6); MONO % 8.9 % (1.7-9.3); PLATELET COUNT 217 K/mm3 (130-400); RED BLOOD COUNT 3.48 M/mm3 (4.20-5.60); REDCELL DISTRIBUTION WIDTH-CV 13.6 % (11.5-14.5)
[2020-03-19 06:59] LABS: HEMATOCRIT 31.4 % (42.0-52.0)
[2020-03-19 07:05] LABS: CALCIUM 8.7 mg/dL (8.4-10.2); CREATININE, serum 1.96 (0.66-1.25); POTASSIUM 3.4 mmol/L (3.4-5.0)
[2020-03-19 07:12] VITALS: BP 128/93
--- NOTE | 2020-03-19 07:21 | NUR ---
PATIENT RESTING IN BED DURING CHANGE OF SHIFT REPORT GIVEN TO DAY SHIFT NURSESANTOS. BED ALARM ON.
--- NOTE | 2020-03-19 09:46 | NUR ---
Patient attending therapies this morning. Ate 100% of breakfast. Has been very shaky and has had a low blood pressure. He had an assisted fall to the floor at 8:00 AM this morning see documentation regarding details of this. Dr. Plasencia was notified. Small scrap to right knee. VSS at this time. Will continue to monitor.
--- NOTE | 2020-03-19 14:20 | NUR ---
SAHRA met with the patient to introduce oneself and to follow up after the weekend. The patient states that the weekend went okay. He states that he had a set back this morning, due to fall. The patient's family meeting is scheduled for tomorrow at 1300. SAHRA to continue to follow.
[2020-03-19 17:32] VITALS: BP 100/53; PULSE 73; TEMP 97.7
--- NOTE | 2020-03-19 19:00 | NUR ---
PATIENT RESTING IN BED DURING CHANGE OF SHIFT REPORT FROM DAY SHIFT NURSESANTOS. PATIENT'S IN ROOM WITH PATIENT. VILLANUEVA IN PLACE, DRAINING YELLOW URINE WITH NO SEDIMENT OBSERVED AT TIME OF REPORT IN VILLANUEVA TUBING. BED ALARM ON.
--- NOTE | 2020-03-19 20:00 | NUR ---
PATIENT WITH BLE WEAKNESS WHEN OUT OF BED TODAY, REPORTED BY DAY SHIFT NURSE, UNABLE TO ASST WITH REPOSITIONING IN BED USING BLE DUE TO WEAKNESS. DENIES ANY DISCOMFORT, DENIES NUMBNESS/TINGLING/SHORTNESS OF BREATHING/CHEST PAIN AT THIS TIME. AT BED SIDE. FOLLOWS COMMANDS, DISORIENTED TO PLACE/TIME/EVENT. SPEAKS CLEARLY AT THIS TIME. VILLANUEVA CATH IN PLACE, DRAINING WITH YELLOW URINE IN TUBING WITH NO PROBLEMS. BED ALARM ON WHEN IN BED.
--- NOTE | 2020-03-20 02:40 | NUR ---
PATIENT SLEEPING, DOES NOT AWAKEN WHEN DOOR TO ROOM IS OPENED BY STAFF, OBSERVED BREATHING NONLABORED AND EVEN. BED ALARM ON.
--- NOTE | 2020-03-20 02:54 | NUR ---
PATIENT WOKE UP, WANTING TO VOID, INFORMED HE HAS A CATHETER WHICH HE DID REMEMBER BUT THOUGHT HE FELT WATER GOING OVER THE BOTTOM OF HIS RIGHT FOOT. INFORMED PATIENT, CATHETER IS WORKING, NO LEAKING OR WATER RUNNING OVER HIS RIGHT FOOT WAS OBSERVED THIS THIS NURSE. PATIENT COOPERATIVE, THEN REPORTED HE WANTED TO MAKE SURE THE CATHETER WAS IN THE RIGHT PLACE AND DRAINING. DENIES ANY NEEDS. BED ALARM ON.
[2020-03-20 05:43] VITALS: BP 113/57; PULSE 97; TEMP 98.3
--- NOTE | 2020-03-20 05:45 | NUR ---
PATIENT A/O X4, SPEECH CLEAR AND APPROPRIATE, DOES NOT REMEMBER YESTERDAY'S ACTIVITIES BUT DOES RECALL HIS VISITING. BED ALARM ON. VILLANUEVA CATH DRAINING CLEAR YELLOW URINE, PATIENT STATES HE IS TRYING TO INCREASE HIS ORAL FLUID INTAKE.
--- NOTE | 2020-03-20 07:00 | NUR ---
PATIENT RESTING IN BED DURING CHANGE OF SHIFT REPORT GIVEN TO DAY SHIFT NURSESANTOS. BED ALARM ON.
--- NOTE | 2020-03-20 11:36 | NUR ---
Patient working with therapy at this time.
--- NOTE | 2020-03-20 11:54 | NUR ---
Patient had an incontinent BM and he was a 2 max assist with transferring and toileting. Observed blood from the tip of the penis and reattached the stat-loc to right thigh, but up higher. Patient reporting less pain to the area at this time. Will continue to monitor.
--- NOTE | 2020-03-20 13:21 | NUR ---
SW attended a family meeting with patient and his , Mona. Also present was IPR Director, PT, OT, ST. IPR Director, Tash, started by explaining the purpose of the meeting. PT/OT/ST then discussed the patient's progress and how he has not made much improvement with PT so far. During the meeting, the patient appeared to not feel well, with some confusion. The patient's stated that she has never seen him like this before. IPR Director is notifying the doctor. The team answered all of 's questions. SW to continue to follow.
--- NOTE | 2020-03-20 13:38 | NUR ---
Call placed to Dr. Unger and left a message for him to return call regarding a decline in mobility and cognition of patient.
[2020-03-20 17:30] VITALS: BP 115/78; PULSE 79; TEMP 98
--- NOTE | 2020-03-20 20:00 | NUR ---
PATIENT RESTING IN BED DURING CHANGE OF SHIFT REPORT FROM DAY SHIFT NURSE, SANTOS. AT BED SIDE. VILLANUEVA DRAINING WITH NO PROBLEMS. PATIENT DENIES DISCOMFORT AT THIS TIME, SCHEDULED TYLENOL GIVEN. BED ALARM ON. BOTH LEGS ARE WEAK, UNABLE TO AMBULATE, CONTINUES ON ORAL ABX DUE TO UTI.
--- NOTE | 2020-03-20 20:14 | NUR ---
Patient had a decline in cognition this afternoon and Dr. Unger was called. CT w/o contrast was completed see results. See new orders to DC Childs, to have scheduled Tylenol and to hold Sinement today. Patient will restart sinement tomorrow TID. Patient and family were updated on this change. Patient currently resting in bed, call light in reach and bed alarm is set. Reported off to night nurse.
--- NOTE | 2020-03-20 20:16 | NUR ---
Dr. Unger has also ordered for to do a MOCA exam on patient tomorrow. See additional nursing orders.
--- NOTE | 2020-03-21 02:00 | NUR ---
PATIENT SLEEPING, DOES NOT AWAKEN WHEN DOOR TO ROOM IS OPENED BY STAFF. OBSERVED BREATHING NONLABORED AND EVEN. BED ALARM ON.
[2020-03-21 05:25] VITALS: BP 128/73; PULSE 77; TEMP 97.8
[2020-03-21 06:59] LABS: BASO # 0.1 (0.0-0.2); BASO % 0.6 % (0.0-2.0); EOS # 0.4 (0.0-0.7); EOS % 4.2 % (0-4.0); GRAN # 5.7 (1.4-6.5); GRAN % 68.4 % (42.2-75.2); HEMOGLOBIN 10.6 g/dl (13.5-18.0); LYMPH # 1.5 (1.2-3.4); LYMPH % 17.8 % (20.0-51.0); MEAN CELL VOLUME 89 fl (80.0-100.0); MEAN CORPUSCULAR HEMOGLOBIN 29 pg (27.0-31.0); MEAN CORPUSCULAR HGB CONC 33 g/dl (33.0-37.0); MEAN PLATELET VOLUME 10.8 fl (7.4-10.4); MONO # 0.7 (0.1-0.6); MONO % 8.5 % (1.7-9.3); PLATELET COUNT 198 K/mm3 (130-400); RED BLOOD COUNT 3.61 M/mm3 (4.20-5.60); REDCELL DISTRIBUTION WIDTH-CV 13.7 % (11.5-14.5)
[2020-03-21 07:03] LABS: HEMATOCRIT 32.1 % (42.0-52.0)
[2020-03-21 07:16] LABS: ALBUMIN 3.5 gm/dL (3.5-5.0); BILIRUBIN,TOTAL 0.6 mg/dL (0.0-1.0); CALCIUM 9.2 mg/dL (8.4-10.2); CREATININE, serum 2.09 (0.66-1.25); POTASSIUM 3.4 mmol/L (3.4-5.0); TOTAL PROTEIN 6.3 gm/dL (6.4-8.2)
--- NOTE | 2020-03-21 07:45 | NUR ---
PATIENT RESTING IN BED DURING CHANGE OF SHIFT REPORT GIVEN TO DAY SHIFT NURSE. BED ALARM ON.
--- NOTE | 2020-03-21 10:00 | NUR ---
Pt assessment complete. Pt is sitting in recliner upon entry, he is A/O x4. His breathing is even and unlabored, he denies SOB. No pain at this time. Sage in place and DD. IV started to L hand, expanation for IV given to patient. Speech in to see patient. Will continue to monitor.
--- NOTE | 2020-03-21 16:54 | NUR ---
SAHRA met with the patient's , Mona, to present and review the IPR Team Conference Note. SW discussed the patient's progress and the patient's recommendation for SNF with a tentative discharge date on 03/27. The patient's was first interested in home health with private duty services in the home. Mona then reports that she would like to try for SNF at [facility] and is then hopeful for the patient to transition back home with private duty services. SAHRA contacted and faxed a referral to Afsaneh at [facility]. SW awaiting their screen.
[2020-03-21 16:55] VITALS: BP 109/69; PULSE 79; TEMP 97.5
--- NOTE | 2020-03-21 17:51 | NUR ---
Pt confused during the mid day, restless. Denied pain and reoriented fairly easily. Pt denies pain. IVF continue to infuse into L hand. POC discussed with patient's . No needs at this time.
[2020-03-22 05:20] VITALS: BP 131/79; PULSE 106; TEMP 99
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
--- NOTE | 2020-03-22 08:16 | NUR ---
Pt awake and alert upon entry, has some C/O pain, tylenol withheld D/T dosage will exceed 4000mg / 24hrs, shift assessment complete, left Pt call light in reach, bed in lowest position.
--- NOTE | 2020-03-22 08:45 | NUR ---
Afsaneh at [facility] reports that they are able to accept the patient for a skilled stay. She states that she would just need the patient's COVID test results. SW to collaborate with the doctor/PA-C on having a COVID test ordered. SW to update the patient's and will continue to follow.
[2020-03-22 16:09] VITALS: BP 97/68; PULSE 76; TEMP 98.9
--- NOTE | 2020-03-22 16:42 | NUR ---
SAHRA received an email from the patient's daughter, Rachana, asking about the patient's progress and the discharge date. SAHRA contacted and updated Rachana and reviewed the IPR Team Conference Note with her. Rachana reports that she would like to speak to the rest of her family about the plan, but is supportive of the patient's wifes' decision for SNF at [facility]. She requested a copy of the IPR Team Conference Note. SAHRA emailed a copy of the note to her and to her siblings: Mp and Abeba. SAHRA also met with the patient's and informed her of [facility]'s acceptance. SW to continue to follow.
--- NOTE | 2020-03-22 23:00 | NUR ---
PT RESTING IN BED. STILL AWAKE. RT HERE TO SET UP CPAP HAD BROUGHT IN EARLIER. AGREED TO WEAR IT TONIGHT. TAKES PILLS SITTING UP OM SIDE OF BED. SIGNIFICANT TREMORS. RIDGID POSTURE. UNSTEADY AT SITTING POSITION. PT SOMEWHWAT CONFUSED. THOUGHT HE WAS IN [place] 3 DIFFERENT TIMES IN A MATTER OF 5MIN. EASILY REORIENTED. IV TO LT F/ ARM NS INFUSING AT 75CC/HR W/O DIFFICULTY. BACK TO BED. CALL LIGHT IN REACH. BED ALARM SET. CPAP ON.
[2020-03-23 05:05] VITALS: BP 122/71; PULSE 114; TEMP 98.4
[2020-03-23 07:51] LABS: CALCIUM 8.9 mg/dL (8.4-10.2); CREATININE, serum 1.81 (0.66-1.25); MAGNESIUM 1.7 mg/dL (1.6-2.3); POTASSIUM 3.3 mmol/L (3.4-5.0)
[2020-03-23 08:50] VITALS: BP 118/76
--- NOTE | 2020-03-23 16:22 | NUR ---
SAHRA contacted and faxed updates to Afsaneh at [facility]. SW to continue to follow.
[2020-03-23 17:44] VITALS: BP 106/66; PULSE 73; TEMP 97.6
--- NOTE | 2020-03-23 19:54 | NUR ---
Patient attended all therapies today. He had some confusion, but was more ambulatory today. He was a one mod assist with gaitbelt and walker today. Patient's catheter was a little bloody this morning, with staff reporting that patient was pulling on the catheter. Felix/CAROLA assiste patient with catheter care and made sure that catheter was placed in stat lock properly. visted this afternoon and she was upset that patient did not get a shower today. She was told that he was to get one tomorrow/Thursday. This will be communicated to next shift. Patient not reporting pain this shift, so scheduled tylenol seems to be working good for him at this time. Reported off to night nurse.
--- NOTE | 2020-03-23 22:00 | NUR ---
PT RESTING IN BED. MORE ALERT THAN LAST NIGHT. ANSWERS QUESTIONS APPROPRIATELY. SIGNIFICANT TREMORS OF HANDS. NEEDS ASSIST WITH PLACING PILLS IN MOUTH AND HOLDING CUP. DENIES PAIN. FC DRAINING FREELY. BLE +3 EDEMA. PLACED 3PILLOWS UNDER FEET. SET UP CPAP FOR PT. READY FOR SLEEP. BED ALARM SET. CALL LIGHT IN REACH.
[2020-03-24 05:27] VITALS: BP 121/70; PULSE 99; TEMP 98.8
[2020-03-24 17:01] VITALS: BP 126/74; PULSE 93; TEMP 97.6
--- NOTE | 2020-03-24 18:00 | NUR ---
Confused when first awakened, but alert the remainder of shift. No complaints. Arms shaky. Sitting up in recliner chair with chair alarm on. Transfers with walker and one staff assist. IV fluids infusing.
--- NOTE | 2020-03-24 19:30 | NUR ---
PT IN RECLINER. ENC FEET ELEVATION. BLE +3. PT CONFUSED AT TIMES. MAX 1 ASSIST PIVOT TRANSFER W/WALKER FROM RECLINER TO BED. HAS TENDANCY TO LEAN BACK. VERY UNSTEADY. SIGNIFICANT TREMORS TO HANDS. NEEDS ASSIST TO HELP PLACING PILLS IN MOUTH AND PROVIDING A DRINK. SWALLOWS WITHOUT DIFFICULTY. CATH CARE COMPLETED. UREATHRA RED. OINTMENT TO AREA. NEW STATLOCK PLACED. REATAL AREA SL RED. BARRIER OINTMENT APPLIED. POSTIONED FOR COMFORT. CALL LIGHT IN REACH. BED ALARM ON LOW SETTING.
--- NOTE | 2020-03-24 21:00 | NUR ---
NS AT 75CC/HR TO LT WRIST IV. PT MORE CONFUSED. TRYING TO SET UP CPAP MASK- PULLING ON STRAPS. ALITTLE AGITATED. DOESNT KNOW WHERE HE IS. REORIENTS PT TO PLACE. CALL LIGHT IN REACH. BED ALARM SET.
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
--- NOTE | 2020-03-25 05:28 | NUR ---
PT CONFUSED AT THIS TIME. TRIED TO PULL OUT VILLANUEVA. SAT WITH PT ALITTLE WHILE UNTIL CALMED. PT DIDNT WEAR CPAP VERY LONG THROUGH THE NIGHT. CALL LIGHT IN REACH. BED ALARSM SET.
[2020-03-25 05:43] VITALS: BP 141/75; PULSE 103; TEMP 97.5
--- NOTE | 2020-03-25 07:46 | NUR ---
PATIENT SET BED ALARM ON. UPON ENTRY TO THE ROOM THE PATIENT HAS HIS LEGS DANGLING OVER THE SIDE RAILING. PATIENT ASSISTED UP TO THE CHAIR BY STAFF. BREAKFAST TRAY ON THE BEDSIDE TABLE. PATIENT DENIES COMPLAINTS OF PAIN THIS MORNING. CALL LIGHT WITHIN REACH. WILL CONTNIUE TO MONITOR.
[2020-03-25 16:48] VITALS: BP 145/76; PULSE 78; TEMP 97.5
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
--- NOTE | 2020-03-25 19:08 | NUR ---
REPORT GIVEN TO ANNE HANSON.
--- NOTE | 2020-03-25 19:30 | NUR ---
OBTAINING SHIFT REPORT FROM BOBBI RODRÍGUEZ. AR NURSES DESK. CONCERNED PT COGNITION IS MUCH WORSE. PT A LITTLE AGITATED. REPOSITIONED PT TO TOP OF BED FOR COMFORT. IV PUMP ALARMING. INFILTRATED TO LT WRIST. VILLANUEVA CATHETER SECURE WITH STAT LOCK. PT PULLS AT CATHETER FREQUENTLY CAUSING IRRITATION/ BLEEDING TO URETHRA. URINE CLOUDY WITH TINGE BLOOD AND HAS SEDIMENT IN TUBING CATH CARE COMPLETED. BACTROBAN APPLIED TO URETHRA. NOTIFIED JULIANNA MALAGON OF FINDINGS. UA ORDERED. OBTAINED AND SENT TO LAB.
--- NOTE | 2020-03-25 21:00 | NUR ---
IV STARTED TO RT UPPER F/A. RESTARTED IVFS.
[2020-03-25 21:14] LABS: COLLECTION METHOD CATHETER
--- NOTE | 2020-03-25 21:24 | NUR ---
22g IV placed to right AC x2 attempts. Flushes without difficulty. Tolerated well.
[2020-03-25 21:29] LABS: MUCOUS Present /lpf; PH 5 (5-8); SQUAMOUS EPITHELIAL None Seen /hpf; URINE APPEARANCE Cloudy; URINE BACTERIA None Seen /hpf; URINE BILIRUBIN Negative (NEGATIVE); URINE BLOOD 3+ (NEGATIVE); URINE COLOR Yellow; URINE GLUCOSE Negative (NEGATIVE); URINE KETONE 1+ (NEGATIVE); URINE LEUKOCYTE ESTERASE 3+ (NEGATIVE); URINE NITRATE Negative (NEGATIVE); URINE PROTEIN(semi-quant) 2+ (NEGATIVE); URINE RBC >50 /hpf; URINE UROBILINOGEN Negative (NEGATIVE)
--- NOTE | 2020-03-25 23:00 | NUR ---
TRANSFERRED PT TO ROOM 338 FOR SAFETY & CONFUSION. NOTIFIED. PT ORIENTED TO ROOM. CALL LIGHT IN REACH. BED ALARM NOTIFIED. RT NOTIFIED OF ROOM CHANGE FOR CPAP ASSIST. PT CALM AND COOPERATIVE.
--- NOTE | 2020-03-25 23:48 | NUR ---
PT RESTING WELL AT THIS TIMEWITH CPAP ON. OCCASIONALLY REACH OUT TO AIR. TREMORS BILAT ARMS.
--- NOTE | 2020-03-26 01:31 | NUR ---
BED ALARM SOUNDING. PT HAD LEGS OVER SIDERAILS, CALLING FOR GLEN HIS . HAD CPAP MASK OFF AND DISCONECTED. METAL PIPE THAT HOLDS CPAP TUBING OUT OF THE WAY IS BROKEN AND IN HIS BED. 2:1 ASSIST TO BSC. REMAINS CONFUSED BUT NOT AGITATED. NO BM. ASSISTED BACK TO BED. TALKING AND MAKING JOKES. DISCUSSED HIS FAMILY. IV CONTINUES INFUSING. VILLANUEVA TO DD BUT STILL HAS BLOODY DRG AT URETHRA. ENC PT NOT TO PULL ON CATHETER. CALL LIGHT IN REACH. BED ALARM SET. PT REFUSED FURTHER USE OF CPAP.
--- NOTE | 2020-03-26 03:54 | NUR ---
PT HAS BEEN CONFUSED. PULLING AT TUBINGS. NEEDED UP TO TOILET. ASSIST X3 BUT NO RESULT. PASSING FLATUS. VILLANUEVA DRAINING WELL.
--- NOTE | 2020-03-26 04:06 | NUR ---
RESTLESS AND CONFUSED. GAVE TYLENOL. MAX 1 ASSIST TO BSC. LEANS BACK AND REMAINS VERY RIGID. HAS DIFFICULTY FOLLING DIRECTIONS BUT REMAINS COOPERATIVE.
[2020-03-26 04:30] VITALS: BP 140/80; PULSE 86; TEMP 97.5
--- NOTE | 2020-03-26 04:32 | NUR ---
NO BM NOTED. GAVE SENOKOT AND COLACE. PT REFUSED SUPPOSITORY. BACK TO BED. CALL LIGHT IN REACH. BED ALARM SET.
--- NOTE | 2020-03-26 05:06 | NUR ---
HAD BM PER BEDPAD. FEELS MUCH BETTER. PT VERY TIRED AND STILL CONFUSED.
--- NOTE | 2020-03-26 05:09 | NUR ---
INNER BUTTOCK SL INFLAMMED BUT SKIN INTACT. BARRIER OINTMENT APPLIED. SOME BLEEDING AT URETHRA FROM PT PULLING AT VILLANUEVA.
--- NOTE | 2020-03-26 06:09 | NUR ---
PT SLEEPING AT THIS TIME. NO RESP DISTRESS.
--- NOTE | 2020-03-26 06:27 | NUR ---
PT PULLING ON VILLANUEVA CATHETER AGAIN. BLOODY DRAINAGE NOTED. CLEANED UP APPLIED BACTROBAN OINTMENT.
[2020-03-26 08:14] LABS: CALCIUM 8.9 mg/dL (8.4-10.2); CREATININE, serum 1.69 (0.66-1.25); MAGNESIUM 1.7 mg/dL (1.6-2.3); POTASSIUM 3.9 mmol/L (3.4-5.0)
--- NOTE | 2020-03-26 13:51 | NUR ---
The patient is to tentatively discharge tomorrow, 03/27, to [facility] for a skilled stay. SAHRA faxed the patient's negative COVID results and updates to Afsaneh at [facility]. SAHRA met with the patient's , Mona, and reviewed the discharge plan. Mona is agreeable to the plan. SAHRA presented and read the IM form outloud to Mona. Mona verbalized understanding and gave SW approval to sign the form on her behalf. SAHRA provided her with a copy. SW to continue to follow.
[2020-03-26 16:56] VITALS: BP 123/85; PULSE 82; TEMP 98.6
--- NOTE | 2020-03-26 20:00 | NUR ---
PATIENT HAD A GOOD DAY. PATIENT DENIED PAIN THROUGHOUT THE SHIFT. VILLANUEVA CATHETER DRAINING YELLOW URINE WITH SEDIMENT PRESENT IN VILLANUEVA BAG. IV FLUIDS INFUSING TO RIGHT FOREARM IV. PATIENT RESTING IN BED AT THIS TIME. BED ALARM ON. REPORT GIVEN TO ANNE KELLER.
--- NOTE | 2020-03-26 20:30 | NUR ---
Received report from ANNE Lorenz. Pt is currently sitting in wheelchair with his at his bedside. pt has his call light within reach.
--- NOTE | 2020-03-27 | NUR ---
Pt currently sleeping in bed. Pt has helped sliding up in bed. Pt valerio is in place and draining. Pt has no complaints of pain at this time. Pt has his call light within reach and his bed is in lowest position .
[2020-03-27 05:22] VITALS: BP 137/81; PULSE 94; TEMP 98
[2020-03-27 08:51] VITALS: BP 125/71
[2020-03-27 09:00] VITALS: BP 125/71
[2020-03-27] MEDS ORDERED: DIFLUCAN200 MG PO (09:16)
[2020-03-27] MEDS ORDERED: SINEMET 25/101 UDTAB PO (09:16)
[2020-03-27] MEDS ORDERED: FLONASE NASAL S16 GM NS (09:17)
[2020-03-27] MEDS ORDERED: BACITRACIN TOPIC1 TU TOP (09:17)
[2020-03-27] MEDS ORDERED: K-TAB20 PO (09:20)
--- NOTE | 2020-03-27 10:08 | NUR ---
Patient working with therapy this morning. Denies pain, tolerating diet well. Very shaky this morning and is currently on sinemet, will continue to monitor. Needed to use the [id number] when transferring to the toilet due to weakness. Patient had a medium bowel movement and required staff to change his brief and pull brief up and down for him as well as wipe him.
[2020-03-27] MEDS ORDERED: CIPRO 500MG TA500 MG PO (11:29)
--- NOTE | 2020-03-27 12:13 | NUR ---
The patient is to discharge today, 03/27, to [facility] for a skilled stay. Transportation was scheduled at 1300, via [facility]. SW informed the patient's RN and . They were both agreeable to the time. No additional needs at this time.
--- NOTE | 2020-03-27 13:17 | NUR ---
Replaced valerio catheter per Dr. Plasencia with 16 lithuanian coude, 10 ml baloon - some bloody drainage from catheter site following removal of old one and replacement of new one. Patient tolerated well. Stat lock in place. Patient was dependent with getting shirt and pants on.
--- NOTE | 2020-03-27 14:05 | NUR ---
Sage catheter was flushed prior to discharge.
--- NOTE | 2020-03-27 15:50 | NUR ---
Discharge QIM scores were reviewed by the team. Code of 1 chosen for toileting hygiene was determined by team discussion to be the most usual performance for this patient during the assessment period.--Tash Forrest, PD
--- NOTE | 2020-03-27 15:53 | NUR ---
Patient Health Summary, Discharge Summary, and Home Meds printed and reviewed with [facility] nurse. Belongings gathered by CAROLA/Felix including Cell phone, welt insole channeler and stand; all misc. personal items were sent with patient. Patient transported via wheelchair by [facility] and seatbelted for ride home to [facility]. Patient and denied any questions.
[2020-03-28] MEDS ORDERED: TYLENOL SU650 MG/SUP RC (00:13)
[2020-03-28] MEDS ORDERED: DEBROX OT (00:20)
[2020-03-28] MEDS ORDERED: GOOD NEIGH1200 MG/15 PO (00:21)
[2020-03-28] MEDS ORDERED: ALMACONE 360 M360 ML PO (00:22)
[2020-03-28] MEDS ORDERED: MYLANTA 150 ML150 M1 PO (00:23)
[2020-03-28] MEDS ORDERED: BACITRACIN Z500 U/GM TP (07:39)
[2020-03-28] MEDS ORDERED: DULCOLAX S10 MG/SUPP RC (07:41)
[2020-03-28] MEDS ORDERED: IMODIUM 2MG CAPS2 MG PO (08:17)
== END 2020-03-27 13:45 | DRG 948 ==
PROVIDERS: Physician Assistant; ADMIT Internal Medicine
DX: R53.81 Other malaise (principal); N17.9 Acute kidney failure, unspecified; I48.92 Unspecified atrial flutter; I48.20 Chronic atrial fibrillation, unspecified; N39.0 Urinary tract infection, site not specified; G47.33 Obstructive sleep apnea (adult) (pediatric); E11.42 Type 2 diabetes mellitus with diabetic polyneuropathy; I34.0 Nonrheumatic mitral (valve) insufficiency; F32.9 Major depressive disorder, single episode, unspecified; N40.1 Benign prostatic hyperplasia with lower urinary tract symptoms; M79.2 Neuralgia and neuritis, unspecified; R33.8 Other retention of urine; R60.9 Edema, unspecified; E87.6 Hypokalemia; G20 Parkinson's disease; F41.9 Anxiety disorder, unspecified; G47.00 Insomnia, unspecified; G25.0 Essential tremor; Z79.84 Long term (current) use of oral hypoglycemic drugs; Z79.01 Long term (current) use of anticoagulants; Z79.891 Long term (current) use of opiate analgesic; Z95.0 Presence of cardiac pacemaker; Z86.73 Personal history of transient ischemic attack (TIA), and cerebral infarction without residual deficits; Z87.891 Personal history of nicotine dependence
CPT/HCPCS: 99222-AI; 99231-AI; 99232-AI; 99233-AI; 99239; J0696; J1815; J7030

== ENCOUNTER 2020-03-28 00:06 | Inpatient (IN) | payer MEDICARE, BC ==
[~2020-03-28] VITALS: Ht 177.8 cm; Wt 100.2 kg
[2020-03-28] VITALS (498 sets, daily range): BP systolic 125–147; BP diastolic 77–99; PULSE 88–107; TEMP 97.1–98.1; O2SAT 80–100
[~2020-03-28 00:06] MED LIST changes: +BACITRACIN TOPIC1 TU TOP; +CIPRO 500MG TA500 MG PO; +DIFLUCAN200 MG PO; +FLONASE NASAL S16 GM NS; +Remove Patch TD; +SINEMET 25/101 UDTAB PO
[2020-03-28] MEDS ORDERED: TYLENOL SU650 MG/SUP RC (00:13)
[2020-03-28] MEDS ORDERED: DEBROX OT (00:20)
[2020-03-28] MEDS ORDERED: GOOD NEIGH1200 MG/15 PO (00:21)
[2020-03-28] MEDS ORDERED: ALMACONE 360 M360 ML PO (00:22)
[2020-03-28] MEDS ORDERED: MYLANTA 150 ML150 M1 PO (00:23)
[2020-03-28 00:36] LABS: BASO % 0.3 % (0.0-2.0); EOS # 0.1 (0.0-0.7); EOS % 0.4 % (0-4.0); GRAN # 12.9 (1.4-6.5); GRAN % 87.8 % (42.2-75.2); HEMOGLOBIN 10.6 g/dl (13.5-18.0); LYMPH # 0.5 (1.2-3.4); LYMPH % 3.5 % (20.0-51.0); MEAN CELL VOLUME 91 fl (80.0-100.0); MEAN CORPUSCULAR HEMOGLOBIN 30 pg (27.0-31.0); MEAN CORPUSCULAR HGB CONC 33 g/dl (33.0-37.0); MEAN PLATELET VOLUME 10.7 fl (7.4-10.4); MONO # 1.1 (0.1-0.6); MONO % 7.4 % (1.7-9.3); PLATELET COUNT 209 K/mm3 (130-400); RED BLOOD COUNT 3.59 M/mm3 (4.20-5.60); REDCELL DISTRIBUTION WIDTH-CV 14.6 % (11.5-14.5)
[2020-03-28 00:43] LABS: HEMATOCRIT 32.6 % (42.0-52.0)
[2020-03-28 00:44] LABS: ARTERIAL BLD GAS O2 SATURATION 93.9 % (92-100); ARTERIAL BLD GAS TCO2 CT 18.2; ARTERIAL BLOOD GAS BASE EXCESS -5.3 (-2-2); ARTERIAL BLOOD GAS HCO3 17.4 meq/L (22-26); ARTERIAL BLOOD GAS PCO2 26.7 mmHg (35-45); ARTERIAL BLOOD GAS PO2 69.2 mmHg (80-100); ARTERIAL BLOOD GAS pH 7.43 (7.35-7.45)
[2020-03-28 00:49] LABS: ALANINE AMINOTRANSFERASE 10 U/L (4-49); ALBUMIN 3.6 gm/dL (3.5-5.0); ALKALINE PHOSPHATASE 55 U/L (50-136); ANION GAP 13 mmol/L (7-16); AST,SGOT 22 U/L (15-37); BILIRUBIN,TOTAL 0.7 mg/dL (0.0-1.0); BLOOD UREA NITROGEN 26 mg/dL (9-20); CALCIUM 8.8 mg/dL (8.4-10.2); CARBON DIOXIDE 17 mmol/L (22-30); CHLORIDE 105 mmol/L (98-107); CREATININE, serum 1.71 (0.66-1.25); GLUCOSE 164 mg/dL (74-106); POTASSIUM 4.1 mmol/L (3.4-5.0); SODIUM 135 mmol/L (137-145); TOTAL PROTEIN 6.6 gm/dL (6.4-8.2)
[2020-03-28 01:00] LABS: TROPONIN-I < 0.012 ng/mL (0.000-0.035)
--- NOTE | 2020-03-28 04:30 | NUR ---
Arrived to the unit via stretcher; alert and partially oriented. Patient reports feeling "much better" since arrival to the hospital. Assessment complete; VS within normal limits. Call light left within reach. Will continue to monitor.
[2020-03-28] MEDS ORDERED: BACITRACIN Z500 U/GM TP (07:39)
[2020-03-28] MEDS ORDERED: DULCOLAX S10 MG/SUPP RC (07:41)
--- NOTE | 2020-03-28 07:55 | NUR ---
Report received from Loretta RODRÍGUEZ and care resumed.
[2020-03-28] MEDS ORDERED: IMODIUM 2MG CAPS2 MG PO (08:17)
--- NOTE | 2020-03-28 14:30 | NUR ---
Report called to Cindy RODRÍGUEZ on medical floor. Pt placed on tele and taken by bed to room 356 at 1350.
--- NOTE | 2020-03-28 15:34 | NUR ---
Khushbu AVILES and I met with pt and his Mona in room 356 after his transfer from ICU. Pt is unsure what happened that brought him right back to hospital after discharge yesterday. is also concerned but they are planning on going back to [facility] upon discharge, at this point. Pt has multiple chronic medical issues that certainly work against each other at times leading to his frequent hospitalizations. Dr Plasencia came a little later to talk with pt and his about goals of care and what we can do to help get the desired outcome. Pt and his feel reassured and comfortable with current plan at this time. Thoracentesis is planned for later this week and various specialists will be coming into to see him here rather than as an outpatient b efore his discharge.
--- NOTE | 2020-03-28 15:35 | NUR ---
Pediatric Dentist met with patient to discuss discharge planning. Patient is a readmit and was just discharged from Inpatient Rehab on 03/27/20. Patient discharged from Inpatient Rehab to a skilled bed at [facility]. Patient presented to ER last night due to hypoxia. Patient stated there was some trouble getting his CPAP but that it was at [facility] with him. Patient's primary care physician is Dr. Stover. Patient does not have Advance Directives in EMR. Patient's next of kin is his , Mona (ph#[phone]). Patient has three children, Mp, Abeba, and Rachana. Patient states he would prefer to go home but is agreeable to return to [facility] to continue with therapy. SAHRA received notification of Palliative Consult and collaborated with Jhoana, Palliative RN. SAHRA and Jhoana met with patient and to discuss goals of care and discharge planning. During meeting, Hospitalist joined meeting to address concerns and provide update. Hospitalist advised patient will have consults for Cardiology, Urology, Pulmonology, and Nuerology during this stay. Hospitalist also discussed thoracentisis with patient. Patient and are in agreement with plan to continue with therapy. Patient states he wants to continue to get stronger and eventually return home. Patient's Mona confirmed discharge plan is to return to [facility] and reports they are holding his room. SAHRA contacted [facility] and faxed updates. Afsaneh confirmed they are holding a bed for patient. SAHRA provided update to medical floor SAHRA as patient moved up to the medical floor.
--- NOTE | 2020-03-28 19:15 | NUR ---
Report received, assumed care for night shift manager. A&Ox3. Denies pain/shorntess of breath/nausea. Assessment complete. VS stable. INT to left AC flushes without difficulty. Tele-afib. Spouse at bedside very agitated. States she is upset dinner is so late and no one has given the night time meds yet. Discussed schedule of HS meds-verbalizes understanding. Encouraged to call with questions/concerns. Call light in reach. WIll monitor.
--- NOTE | 2020-03-28 19:36 | NUR ---
Patient to floor from ICU, report received from Gloria. Does have obvious tremors to BUEs. Edema noted to BLEs, scrotum and penis. Has valerio to dependent drain with clear yellow urine. Denies pain. Lungs clear but diminished in the bases. Heart is irregular, is on telemetry. Is alert and oriented with confusion.
[2020-03-29] VITALS (8 sets, daily range): BP systolic 118–153; BP diastolic 56–82; PULSE 79–108; TEMP 97.5–98.9
[2020-03-29 01:02] LABS: COLLECTION METHOD CATHETER
[2020-03-29 01:14] LABS: MUCOUS Present /lpf; PH 5 (5-8); SQUAMOUS EPITHELIAL None Seen /hpf; URINE APPEARANCE Cloudy; URINE BACTERIA Rare /hpf; URINE BILIRUBIN Negative (NEGATIVE); URINE BLOOD 3+ (NEGATIVE); URINE COLOR Yellow; URINE GLUCOSE Negative (NEGATIVE); URINE KETONE Trace (NEGATIVE); URINE LEUKOCYTE ESTERASE 3+ (NEGATIVE); URINE NITRATE Negative (NEGATIVE); URINE PROTEIN(semi-quant) Negative (NEGATIVE); URINE RBC >50 /hpf; URINE UROBILINOGEN Negative (NEGATIVE)
--- NOTE | 2020-03-29 01:30 | NUR ---
Recheck of O2 Saturation due to charted low. CPAP mask adjusted. O2 sat 93 with 3L bleed in.
--- NOTE | 2020-03-29 04:50 | NUR ---
Dawson yelling out in hallway "please." This nurse to room-noted to have removed CPAP mask-no O2 on at all. Very anxious and short of breath. Current oxygen saturation 78% on room air. Reapplied CPAP with bleed in at 3L/NC. O2 saturation continued to rise to 94%. SHYLA Heard notified of situation. No new orders received. Discussed importance of calling if removing mask so nasal canula can be applied. Verbalizes understanding. Will continue to monitor.
[2020-03-29 06:18] LABS: CALCIUM 8.7 mg/dL (8.4-10.2); CREATININE, serum 1.72 (0.66-1.25); MAGNESIUM 1.5 mg/dL (1.6-2.3); POTASSIUM 3.3 mmol/L (3.4-5.0)
[2020-03-29 06:40] LABS: BASO % 0.3 % (0.0-2.0); EOS # 0.1 (0.0-0.7); EOS % 0.9 % (0-4.0); GRAN # 9.7 (1.4-6.5); GRAN % 83.9 % (42.2-75.2); LYMPH # 0.6 (1.2-3.4); MEAN CELL VOLUME 90 fl (80.0-100.0); MEAN CORPUSCULAR HGB CONC 34 g/dl (33.0-37.0); MONO # 1.1 (0.1-0.6); MONO % 9.4 % (1.7-9.3); PLATELET COUNT 238 K/mm3 (130-400); RED BLOOD COUNT 3.23 M/mm3 (4.20-5.60); REDCELL DISTRIBUTION WIDTH-CV 14.6 % (11.5-14.5)
[2020-03-29 06:45] LABS: HEMOGLOBIN 9.8 g/dl (13.5-18.0); MEAN CORPUSCULAR HEMOGLOBIN 30 pg (27.0-31.0)
--- NOTE | 2020-03-29 13:26 | NUR ---
In to see pt today but he is sleeping in his chair. I did not awaken him as he was quite comfortable. He is alone in the room.
--- NOTE | 2020-03-29 15:26 | NUR ---
SAHRA faxed updates to Afsaneh at [facility]. Will continue to monitor.
--- NOTE | 2020-03-29 18:23 | NUR ---
Consult called to Dr. Guido, he gave orders for CPCR, renal ultrasound and UA and stated he will see patient tomorrow.
--- NOTE | 2020-03-29 19:15 | NUR ---
Received call from tele desk regarding patient having PVCs vs v-tach beats ranging from 8-[address] Lovell to notify and she had given medication order for metoprolol to be given 50 mg once and then changed to BID starting tomorrow morning. This information was relayed to patient and .
--- NOTE | 2020-03-29 19:22 | NUR ---
PATIENT RESTING IN BED DURING CHANGE OF SHIFT REPORT RECEIVED FROM DAY SHIFT NURSEAPRYL. BED ALARM ON. TELE AND SALINE LOCK IN PLACE.
--- NOTE | 2020-03-30 00:30 | NUR ---
PATIENT SLEEPING, DOES NOT AWAKEN WHEN ROOM ENTERED BY STAFF. BED ALARM ON. CPAP ON WITH O2 BLEED IN AT 5LPM. VILLANUEVA CATH DRAINING. TELE AND SALINE LOCK IN PLACE.
--- NOTE | 2020-03-30 02:59 | NUR ---
PATIENT AWAKE AND CONFUSED, CPAP MASK OFF PATIENT AND NOT IN ONE PIECE. O2 PER NC PLACED TO PATIENT'S NARES, DENIES SHORTNESS OF BREATH, CHEST PAIN AT THIS TIME. OBSERVED O2 INCREASED TO 4-5 LPM WITH SAT SITTING BET 88-90 PERCENT AT THIS TIME, RT INFORMED OF CPAP OFF AND O2 PER NC ON PATIENT AT THIS TIME.
[2020-03-30 04:18] VITALS: BP 131/80; PULSE 94; TEMP 98.9
[2020-03-30 05:42] LABS: COLLECTION METHOD CATHETER
[2020-03-30 05:54] LABS: MUCOUS Present /lpf; PH 5 (5-8); SQUAMOUS EPITHELIAL None Seen /hpf; URINE APPEARANCE Cloudy; URINE BACTERIA Rare /hpf; URINE BILIRUBIN Negative (NEGATIVE); URINE BLOOD 3+ (NEGATIVE); URINE COLOR Yellow; URINE GLUCOSE Negative (NEGATIVE); URINE KETONE Trace (NEGATIVE); URINE LEUKOCYTE ESTERASE 2+ (NEGATIVE); URINE NITRATE Negative (NEGATIVE); URINE PROTEIN(semi-quant) Negative (NEGATIVE); URINE RBC >50 /hpf; URINE UROBILINOGEN Negative (NEGATIVE)
[2020-03-30 06:04] LABS: URINE PROTEIN:CREAT RATIO 0.24 (0.00-0.14)
--- NOTE | 2020-03-30 07:30 | NUR ---
PATIENT RESTING IN BED DURING CHANGE OF SHIFT REPORT GIVEN TO DAY SHIFT NURSESTACI. BED ALARM ON.
[2020-03-30 07:33] VITALS: BP 120/79; PULSE 109; TEMP 97.8
[2020-03-30 07:40] LABS: BASO % 0.3 % (0.0-2.0); EOS # 0.1 (0.0-0.7); EOS % 0.6 % (0-4.0); GRAN # 9.2 (1.4-6.5); GRAN % 83.2 % (42.2-75.2); HEMOGLOBIN 10.1 g/dl (13.5-18.0); LYMPH # 0.7 (1.2-3.4); LYMPH % 6.1 % (20.0-51.0); MEAN CELL VOLUME 90 fl (80.0-100.0); MEAN CORPUSCULAR HEMOGLOBIN 29 pg (27.0-31.0); MEAN CORPUSCULAR HGB CONC 33 g/dl (33.0-37.0); MEAN PLATELET VOLUME 10.7 fl (7.4-10.4); MONO % 9.3 % (1.7-9.3); PLATELET COUNT 261 K/mm3 (130-400); RED BLOOD COUNT 3.43 M/mm3 (4.20-5.60); REDCELL DISTRIBUTION WIDTH-CV 14.6 % (11.5-14.5)
[2020-03-30 07:41] LABS: HEMATOCRIT 30.8 % (42.0-52.0)
[2020-03-30 07:53] LABS: CREATININE, serum 1.71 (0.66-1.25); MAGNESIUM 1.7 mg/dL (1.6-2.3); POTASSIUM 3.6 mmol/L (3.4-5.0)
[2020-03-30 12:05] VITALS: BP 132/73; PULSE 97; TEMP 98.1
[2020-03-30 17:19] VITALS: BP 127/83; PULSE 97; TEMP 97.9
--- NOTE | 2020-03-30 20:00 | NUR ---
Received report from ANNE Kay. A/O x4 with some confusion. Meds administered as ordered. Denies any pain or discomfort at this time. Sage catheter intact secured to RL draining clear yellow urine. INT to RW intact, flushed, dressing CDI. Tele monitor in place. Denies SOB, on 6LO2NC. Will monitor pt. Bed alarm set. Needs met. Call light witin reach.
[2020-03-30 20:02] VITALS: BP 124/67; PULSE 89; TEMP 97.9
--- NOTE | 2020-03-30 20:25 | NUR ---
Patient had mild confusin this morning. Titrated 02 from 5L to 10L when saturation dropped from 93% to 87%. patient maintained 93 % on 10L. Patient was later titrated down to 6L with saturation on 94%. Dr Burciaga will be performing a Thoracentesis tomorrow. Dr Guido was consulted for Hypervolemia. Patient is currently alert and oriented with no confusion. visited at bedside today.
[2020-03-30 23:05] VITALS: BP 144/91; PULSE 98; TEMP 98.4
--- NOTE | 2020-03-31 | NUR ---
Pt called stating why no one came in to talk to him about his POC and was wanting to go home and have his present. Pt able to state , date, and place. Pt reoriented to his situation and POC and explained that MD will see him in the morning for procedure. Also re-explained visitor policy and can come back in the morning. Pt was cooperative with explanation and care and verbalized understanding. needs met. made pt comfortabel in bed. call light within reach.
[2020-03-31 03:20] VITALS: BP 118/71; PULSE 98; TEMP 98.6
--- NOTE | 2020-03-31 05:55 | NUR ---
Pt wore cpap during the night. No complaints made. Meds administered. Call light within reach.
[2020-03-31 07:20] VITALS: BP 125/62; PULSE 92; TEMP 97.9
--- NOTE | 2020-03-31 07:30 | NUR ---
Report received from ANNE Ballard. During bedside shift report pt c/o having "not seen anyone in 30+ hours" but then lookign at heel sander rubber nurse he said "well besides you, I know you have been in here a lot last night". PT not oriented to place or time, CPAP laying on floor at side of bed. Placed pt back on 6L NC of 02 per heel sander rubber and discussed patient plan of care with pateint in depth. Pt continues to be confused and stating no one has seen him but agreeable to plan. Alarms on, will continue to monitor.
--- NOTE | 2020-03-31 07:31 | NUR ---
Report given to ANNE Bruce.
[2020-03-31 07:38] LABS: BASO % 0.1 % (0.0-2.0); GRAN # 8.6 (1.4-6.5); GRAN % 88.3 % (42.2-75.2); LYMPH # 0.4 (1.2-3.4); LYMPH % 3.9 % (20.0-51.0); MEAN CELL VOLUME 89 fl (80.0-100.0); MEAN CORPUSCULAR HEMOGLOBIN 30 pg (27.0-31.0); MEAN CORPUSCULAR HGB CONC 33 g/dl (33.0-37.0); MONO # 0.7 (0.1-0.6); MONO % 7.3 % (1.7-9.3); PLATELET COUNT 270 K/mm3 (130-400); RED BLOOD COUNT 3.38 M/mm3 (4.20-5.60); REDCELL DISTRIBUTION WIDTH-CV 14.1 % (11.5-14.5)
[2020-03-31 07:44] LABS: HEMATOCRIT 29.9 % (42.0-52.0)
[2020-03-31 07:45] LABS: INR 1.8 (0.8-3.0); PROTHROMBIN TIME 20.2 SECONDS (9.7-12.8)
[2020-03-31 08:01] LABS: CREATININE, serum 1.78 (0.66-1.25); POTASSIUM 3.5 mmol/L (3.4-5.0)
--- NOTE | 2020-03-31 11:08 | NUR ---
Assessmetn charted. Assissted Dr. Burciaga with R sided thoracentecis with patient. Pt tolerated well, 800 ccs of clear yellow fluid aspirated, bandaid applied. Swabbed pt for COVID and RVP, reviewed visitor policy with and and patient. pT remains orientedx3 but not to place. IV antibiotics to RFA. Resting in bed. Will move to room 303, report given to ANNE Cruz who will resume care.
[2020-03-31 11:10] VITALS: BP 113/77; PULSE 81; TEMP 98
[2020-03-31 11:34] LABS: GLUCOSE,PLEURAL FLUID 138 mg/dL
[2020-03-31 11:36] LABS: TOTAL PROTEIN,PLEURAL FLUID < 2.0 gm/dL
[2020-03-31 11:41] LABS: PLEURAL FLUID RBC 0 /mm3 (0-0); PLEURAL FLUID WBC 168 /mm3
--- NOTE | 2020-03-31 12:33 | NUR ---
Call received from daughter Abeba, discussed patient plan of care in depth per patient and spouses request. THey were very satisfied with current care and will call with further questions.
--- NOTE | 2020-03-31 14:48 | NUR ---
Resumed cared of patient at this time from [facility] per negative test results on COVID test. Called Mona and updated her with good news, she will be up to visit shortly, called ER screener to allow her admission again today per the test results.
[2020-03-31 17:08] VITALS: BP 110/66; PULSE 91; TEMP 98.2
--- NOTE | 2020-03-31 18:23 | NUR ---
Pt resting in bed with at bedside. Denies needs, has been up to bedside commode for bowel movementsx5 over shift. 2 person assist due to the parkinsonism, shuffling gait. Resting quietly in bed. Will give bedside shift report to nightshift nurse who will resume care.
--- NOTE | 2020-03-31 18:50 | NUR ---
Pt REPORT RECEIVED FROM MARY KATE RODRÍGUEZ AT BEDSIDE. CALL LIGHT WITHIN REACH. WILL CONTINUE TO MONITOR.
[2020-03-31 21:23] VITALS: BP 128/74; PULSE 79; TEMP 97.9
[2020-04-01 00:44] VITALS: BP 132/83; PULSE 103; TEMP 97.3
--- NOTE | 2020-04-01 01:18 | NUR ---
Pt HAS BEEN RESTING IN BED DURING THE SHIFT AND WAS WATCHING TV EARLIER BUT CURRENTLY IS RESTING IN BED WITH EYES CLOSED AND NO S/S OF DISTRESS NOTED. Pt HAS BEEN IN A PLEASANT MOOD THIS SHIFT AND HAS BEEN COOPERATIVE WITH CARE AND COMPLIANT WITH MEDICATION REGIMEN. Pt HAS HAD NO S/S OF RESPIRATORY OR ANY OTHER DISTRESS NOTED AND HAS BEEN COMPLIANT WITH HIS FLUID RESTRICTIONS THIS SHIFT. CALL LIGHT IS WITHIN REACH AND BEVERAGE IS ON BEDSIDE TABLE. WILL CONTINUE TO MONITOR.
--- NOTE | 2020-04-01 04:26 | NUR ---
Pt IS CURRENTLY RESTING IN BED WITH EYES CLOSED AND NO S/S OF DISTRESS NOTED. CALL LIGHT IS WITHIN REACH AND BEVERAGE IS ON BEDSIDE TABLE WITHIN REACH. WILL CONTINUE TO MONITOR.
[2020-04-01 04:39] VITALS: BP 126/74; PULSE 100; TEMP 97.6
--- NOTE | 2020-04-01 06:22 | NUR ---
Pt RESTING IN BED AND REPORTS THAT HE THINKS HE HAD A BM. FINANCIAL INVESTMENT ADVISER IS PERFORMING INCONTINENCE CARE. CALL LIGHT WITHIN REACH. NO S/S OF DISTRESS NOTED.
[2020-04-01 06:29] LABS: MEAN CELL VOLUME 90 fl (80.0-100.0); MEAN CORPUSCULAR HGB CONC 33 g/dl (33.0-37.0); MEAN PLATELET VOLUME 10.3 fl (7.4-10.4); PLATELET COUNT 269 K/mm3 (130-400); RED BLOOD COUNT 3.21 M/mm3 (4.20-5.60); REDCELL DISTRIBUTION WIDTH-CV 14.1 % (11.5-14.5)
--- NOTE | 2020-04-01 06:38 | NUR ---
REPORT GIVEN TO DAYSHIFT RN AT BEDSIDE
[2020-04-01 06:39] LABS: HEMATOCRIT 28.8 % (42.0-52.0); HEMOGLOBIN 9.5 g/dl (13.5-18.0); MEAN CORPUSCULAR HEMOGLOBIN 30 pg (27.0-31.0)
[2020-04-01 06:50] LABS: CREATININE, serum 1.77 (0.66-1.25); POTASSIUM 3.5 mmol/L (3.4-5.0)
--- NOTE | 2020-04-01 07:15 | NUR ---
Bedside shift report received from ANNE Calderon. pT in bed sleeping with CPAP in place, bed alarm on, will continue to monitor.
[2020-04-01 08:37] VITALS: BP 129/87; PULSE 97; TEMP 97.7
[2020-04-01 08:47] LABS: LYMPHOCYTE 4 % (20.0-51.0); NEUTROPHILS 90 % (42.0-75.2)
[2020-04-01 08:48] LABS: ANISOCYTOSIS 1+; PLATELET ESTIMATE NORMAL (NORMAL)
--- NOTE | 2020-04-01 09:33 | NUR ---
Upon entry into patients room pt is resting comfortably in bed on room air, per pt removed CPAP to eat breakfaast and did not think to put NC on. Checked 02 saturations and pt was remarkably 91 to 94% on RA. Pt is more oriented today, seems to be able to track well and remembers well from yesterday. Denies pain or other needs. INT to RW. Will continue to monitor.
[2020-04-01 11:54] LABS: PLEURAL FLUID APPEARANCE CLEAR; PLEURAL FLUID COLOR YELLOW
[2020-04-01 12:16] VITALS: BP 113/75; PULSE 98; TEMP 97.7
--- NOTE | 2020-04-01 12:30 | NUR ---
SAHRA faxed updates to Afsaneh at [facility] from dates 03/30/2020-04/01/2020
[2020-04-01 17:07] VITALS: BP 120/62; PULSE 85; TEMP 97.8
--- NOTE | 2020-04-01 18:35 | NUR ---
Pt has done very well today. , Mona at bedside most of day, had lengthy discussion with her while pt rested this afternoon about options and how well he is doing today. Pt remained oriented for shift, remained on RA with saturations about 90%. Denies pain. Bed bath given, pt up to commode several times for loose stools. Doing well, will give bedside shift report to nightshift nurse who will resume care.
[2020-04-01 19:11] VITALS: BP 102/72; PULSE 81; TEMP 98.1
[2020-04-02] VITALS (7 sets, daily range): BP systolic 108–142; BP diastolic 67–88; PULSE 75–100; TEMP 97.3–98.7
--- NOTE | 2020-04-02 06:30 | NUR ---
Patient slept most the night. No complaints of pain or nausea. Attempted to reposition him a few times but he moved around on his own. He wore his C-PAP all night. He was upset a few times about the noise and call lights going off. No other changes at this time. Call light within reach.
[2020-04-02 06:31] LABS: BASO % 0.1 % (0.0-2.0); GRAN % 89.9 % (42.2-75.2); LYMPH # 0.5 (1.2-3.4); LYMPH % 4.6 % (20.0-51.0); MEAN CELL VOLUME 88 fl (80.0-100.0); MEAN CORPUSCULAR HGB CONC 33 g/dl (33.0-37.0); MEAN PLATELET VOLUME 10.3 fl (7.4-10.4); MONO # 0.5 (0.1-0.6); MONO % 4.8 % (1.7-9.3); PLATELET COUNT 280 K/mm3 (130-400); RED BLOOD COUNT 3.32 M/mm3 (4.20-5.60); REDCELL DISTRIBUTION WIDTH-CV 14.1 % (11.5-14.5)
[2020-04-02 06:43] LABS: HEMATOCRIT 29.3 % (42.0-52.0); HEMOGLOBIN 9.7 g/dl (13.5-18.0); MEAN CORPUSCULAR HEMOGLOBIN 29 pg (27.0-31.0)
[2020-04-02 06:58] LABS: CREATININE, serum 1.65 (0.66-1.25); POTASSIUM 3.6 mmol/L (3.4-5.0)
--- NOTE | 2020-04-02 07:00 | NUR ---
Report received from ANNE Amaro. pT in bed resting with pillows over face and CPAP on, does not want to be disturbed, will continue to monitor.
--- NOTE | 2020-04-02 09:41 | NUR ---
Assessment charted. PT is awake and alert now, oriented but has some intermittent confusion. at bedside ready to discuss plan moving forward. INT to RW. Pt up to commode for BM. Sage catheter in place draining clear yellow urine to DD in bag at side of bed. Deneis pain, will continue to monitor.
--- NOTE | 2020-04-02 09:54 | NUR ---
Rounded with treatment team to discuss plan of care and that discharge to [facility] is not available as they are currently not taking any patients. Will explore IPR as option and then explore [facility] if needed. Family does report that sons are looking at facilities in [facility] but not sure if that will develope or not. Currently family is waiting to see if IPR will be an option.
[2020-04-02] MEDS ORDERED: MONODOX100 PO (14:56)
[2020-04-02] MEDS ORDERED: PACERONE400 MG PO (14:56)
[2020-04-02] MEDS ORDERED: XARELTO15 MG PO (14:56)
[2020-04-02] MEDS ORDERED: NOVLOG SQ (14:57)
[2020-04-02] MEDS ORDERED: PROBIOTIC ACID1 EAC3 PO (14:58)
[2020-04-02] MEDS ORDERED: LASIX 40MG TABL40 MG PO (14:59)
[2020-04-02] MEDS ORDERED: PREDNISONE10 MG PO (15:02)
--- NOTE | 2020-04-02 15:47 | NUR ---
INT dc'd tip intact. Pt up to commode with 2 person assist and had large bowel movement. Resting in bed fully dressed and prepped for dishcarge to [facility] who will resume care of patient. Report called to [facility] but they did not answer, VM left. Denies needs, all belongings packed, prepped for discharge, will assist with getting into w/c when transport team arrive and will send with all belongings and packet. Criteria met.
--- NOTE | 2020-04-02 17:02 | NUR ---
Book Publisher was contacted by Afsaneh at [facility] who advised they cannot take patient back at this time. SAHRA attended clinical rounds with the team where this update was provided. Patient and patient's , Mona would like referrals sent to [facility] (first preference) and [facility] (second preference). Hospitalist contacted RAHUL Bianchi Director to give referral and SAHRA contacted Kj and faxed referral. SAHRA was notified by [facility] Bianchi Director that they cannot accept referral. SAHRA contacted Kj who advised they can accept referral. SAHRA followed up with Mona and patient. Patient is agreeable to discharge to [facility]. Mona states she feels that she doesn't have a choice in the matter. Mona requested SW contact her son, Mp who would like clinical information sent to [facility] in [place]. Patient states SW can send them info to possibly transfer there at a later time, but patient states "let's take the one in town for now", referrring to [facility]. SAHRA contacted patient's son, Mp who emailed SW contact information for [facility]. SAHRA faxed referral to [facility] and provided update the patient will discharge to [facility]. Luz Maria at [facility] verbalized understanding and advised they would need additional information from [facility] once he admits there. SAHRA contacted Kj at [facility] and set transport time for 1600. Shortly after, Kj contacted SAHRA and advised they would not be able to accept until patient has a second negative COVID test. SAHRA contacted Hospitalist who ordered in house test. SAHRA collaborated with Hospitalist and Kj and it was decided that plan would be to discharge tomorrow morning as results from the test would not be received until later this evening. Kj did advise that they could take tonight with a negative test, however plan is still for tomorrow morning. SAHRA faxed discharge orders to Kj. SAHRA provided update to Natalie Machinist Class B and will continue to follow.
--- NOTE | 2020-04-02 17:17 | NUR ---
Pt resting in bed, swabbed for COVID per requirements for move to [facility]. Pt tolerated well, brought down to lab. at bedside, visibly upset regarding pt discharge being cnacelled for today last minute. SW assisted. Will provide care and await results. Tried to appease and assist in family, ordered a supper tray for Mona as an expression of our condolences for their situation. PT resting in bed. Per JIM okay not have TELE OR IV ACCESS as he is only here pending acceptance to SNF.
--- NOTE | 2020-04-02 18:35 | NUR ---
Pt resting in bed eating supper with at bedside. Doing well, resting in bed, agreeable to staying overnight until results for COVID19 come back from rapid swab this afternoon. Will give bedside shift report to nightshift nurse who will resume care.
--- NOTE | 2020-04-02 19:10 | NUR ---
Pt REPORT RECEIVED FROM MARY KATE RODRÍGUEZ AT Pt BEDSIDE. Pt SPOUSE IS PRESENT. CALL LIGHT IS WITHIN REACH AND Pt HAS BEVERAGE ON THE BEDSIDE TABLE WITHIN REACH. NO S/S OF DISTRESS NOTED. Pt HAS NO IV PLACEMENT AND IS NOT ON TELE AT THIS TIME DUE TO BEING IN THE PROCESS OF DISCHARGE FROM [facility] AND TRANSFER TO SNF WHEN HE HAD TO STAY FOR ANOTHER NIGHT DUE TO THE SNF REQUIRING AN ADDITIONAL COVID SWAB TO ENSURE HE WAS NEGATIVE FOR COVID 19. WILL CONTINUE TO MONITOR.
[2020-04-03 00:38] VITALS: BP 120/63; PULSE 97; TEMP 97.6
--- NOTE | 2020-04-03 03:52 | NUR ---
Pt HAS BEEN RESTING QUIETLY IN HIS ROOM DURING THE SHIFT WITH NO COMPLAINTS OF PAIN, NO EXPRESSED WANTS/NEEDS, AND Pt DENIES PAIN OR DISCOMFORT WHEN THIS PARTS COUNTER ASSOCIATE MAKES ROUNDS AND Pt IS AWAKE. Pt HAS REMAINED IN STABLE CONDITION WITH NO S/S OF DISTRESS NOTED. Pt COVID SWAB RESULTS SHOW NEGATIVE AND SO Pt SHOULD BE READY TO DC TO THE SNF IN THE AM. AT THIS TIME Pt IS RESTING IN BED WITH EYES CLOSED AND CALL LIGHT WITHIN REACH. BEVERAGE REMAINS WITHIN REACH ON BEDSIDE TABLE. WILL CONTINUE TO MONITOR.
[2020-04-03 04:32] VITALS: BP 137/83; PULSE 89; TEMP 96.8
--- NOTE | 2020-04-03 06:19 | NUR ---
Pt RESTING IN BED WITH EYES CLOSED AND NO S/S OF DISTRESS NOTED. WILL GIVE SHIFT REPORT TO DAYSHIFT RN
--- NOTE | 2020-04-03 07:00 | NUR ---
REPORT RCVD FROM ANNE VILLALTA. PT IS SLEEPING AT THIS TIME WITH CPAP ON. WILL ASSESS ONCE PT IS AWAKE. HE IS PREPARING TO GO TO [facility] TODAY.
[2020-04-03 07:26] VITALS: BP 137/88; PULSE 103; TEMP 96.8
[2020-04-03] MEDS ORDERED: MONODOX100 PO (08:54)
--- NOTE | 2020-04-03 11:52 | NUR ---
PT HAS DISCHARGED TO [facility].
--- NOTE | 2020-04-03 16:32 | NUR ---
Coppersmith Helper collaborated with Kj at [facility] to set transport time for 1100. SAHRA provided transport time to RN, patient, and patient's . SAHRA read IM form aloud to patient who verbalized understanding and provided verbal consent as signature. SAHRA placed form in chart and provided copy to patient. No additional needs at this time.
== END 2020-04-03 11:00 | DRG 291 ==
LOC: COL.ER 00:06 → ICU 02:42 → MEDICAL 02:42 → ICU 10:12 → MEDICAL 14:23
PROVIDERS: Emergency Medicine; Internal Medicine; Internal Medicine Infectious Disease; Internal Medicine Pulmonary Disease; Physician Assistant; ADMIT Student in an Organized Health Care Education/Training Program
PROC: 0W993ZZ Drainage of Right Pleural Cavity, Percutaneous Approach (ICD-10-PCS; principal; 2020-03-31)
DX: I13.0 Hypertensive heart and chronic kidney disease with heart failure and stage 1 through stage 4 chronic kidney disease, or unspecified chronic kidney disease (principal); J96.21 Acute and chronic respiratory failure with hypoxia; G93.41 Metabolic encephalopathy; I50.33 Acute on chronic diastolic (congestive) heart failure; N17.9 Acute kidney failure, unspecified; N39.0 Urinary tract infection, site not specified; I48.19 Other persistent atrial fibrillation; N18.9 Chronic kidney disease, unspecified; I95.9 Hypotension, unspecified; G20 Parkinson's disease; F02.80 Dementia in other diseases classified elsewhere, unspecified severity, without behavioral disturbance, psychotic disturbance, mood disturbance, and anxiety; F32.9 Major depressive disorder, single episode, unspecified; F41.9 Anxiety disorder, unspecified; E11.42 Type 2 diabetes mellitus with diabetic polyneuropathy; E78.5 Hyperlipidemia, unspecified; E11.22 Type 2 diabetes mellitus with diabetic chronic kidney disease; I49.5 Sick sinus syndrome; G47.33 Obstructive sleep apnea (adult) (pediatric); E87.6 Hypokalemia; E83.42 Hypomagnesemia; Z20.828 Contact with and (suspected) exposure to other viral communicable diseases; Z79.01 Long term (current) use of anticoagulants; Z95.0 Presence of cardiac pacemaker; Z86.73 Personal history of transient ischemic attack (TIA), and cerebral infarction without residual deficits; Z87.891 Personal history of nicotine dependence; Z79.84 Long term (current) use of oral hypoglycemic drugs
CPT/HCPCS: 99232-AI; 99233-AI; 99239; G0378; J0282; J0456; J0692; J0696; J1650; J1815; J1940; J3370; J3475; J7040; J7050; J7060; J7512

== ENCOUNTER → 2020-04-16 | Outpatient (CLI) | payer MEDICARE, BC ==
[~2020-04-16] MED LIST changes: +BACITRACIN Z500 U/GM TP; +DEBROX OT; +DULCOLAX S10 MG/SUPP RC; +GOOD NEIGH1200 MG/15 PO; +IMODIUM 2MG CAPS2 MG PO; +LASIX 40MG TABL40 MG PO; +MONODOX100 PO; +MYLANTA 150 ML150 M1 PO; +PROBIOTIC ACID1 EAC3 PO; +TYLENOL SU650 MG/SUP RC; +XARELTO15 MG PO
== END ==
LOC: COL.RAD 13:47
DX: J96.00 Acute respiratory failure, unspecified whether with hypoxia or hypercapnia (principal); J18.9 Pneumonia, unspecified organism; J90 Pleural effusion, not elsewhere classified

== ENCOUNTER 2020-05-01 17:44 | Emergency (ER) | payer MEDICARE, BC ==
[~2020-05-01] VITALS: Ht 177.8 cm; Wt 99.5 kg
[2020-05-01 17:52] VITALS: BP 131/82; TEMP 97.3
[2020-05-01 18:50] LABS: COLLECTION METHOD CATHETER
[2020-05-01 19:00] LABS: MUCOUS Present /lpf; PH 5 (5-8); SQUAMOUS EPITHELIAL 0-2 /hpf; URINE APPEARANCE Hazy; URINE BACTERIA Moderate /hpf; URINE BILIRUBIN Negative (NEGATIVE); URINE BLOOD 3+ (NEGATIVE); URINE COLOR Yellow; URINE GLUCOSE Negative (NEGATIVE); URINE KETONE Negative (NEGATIVE); URINE LEUKOCYTE ESTERASE 1+ (NEGATIVE); URINE NITRATE Negative (NEGATIVE); URINE PROTEIN(semi-quant) 1+ (NEGATIVE); URINE RBC >50 /hpf; URINE UROBILINOGEN Negative (NEGATIVE)
[2020-05-01] MEDS ORDERED: OMNICEF 300MG300 MG PO (19:33)
[2020-05-01 19:53] VITALS: PULSE 74
[2020-05-03] MEDS ORDERED: DIFLUCAN200 MG PO (20:11)
== END 2020-05-01 19:53 | disposition home or self-care (01) ==
LOC: COL.ER 17:44
PROVIDERS: Nurse Practitioner Primary Care
DX: T83.098A Other mechanical complication of other urinary catheter, initial encounter (principal); N39.0 Urinary tract infection, site not specified; E11.9 Type 2 diabetes mellitus without complications; G20 Parkinson's disease; I10 Essential (primary) hypertension; Z87.891 Personal history of nicotine dependence; Z90.89 Acquired absence of other organs; Z95.0 Presence of cardiac pacemaker; Z86.73 Personal history of transient ischemic attack (TIA), and cerebral infarction without residual deficits; Z79.4 Long term (current) use of insulin; Z79.52 Long term (current) use of systemic steroids; Z79.51 Long term (current) use of inhaled steroids
CPT/HCPCS: A4314; J0696

== ENCOUNTER 2020-05-04 22:22 | Observation (INO) | payer MEDICARE, BC ==
[~2020-05-04] VITALS: Ht 180.3 cm; Wt 102.4 kg
[~2020-05-04 22:22] MED LIST changes: +OMNICEF 300MG300 MG PO
[2020-05-04 23:47] LABS: BASO % 0.2 % (0.0-2.0); EOS % 0.2 % (0-4.0); GRAN # 8.1 (1.4-6.5); GRAN % 86.4 % (42.2-75.2); HEMATOCRIT 32.9 % (42.0-52.0); HEMOGLOBIN 10.7 g/dl (13.5-18.0); LYMPH # 0.4 (1.2-3.4); LYMPH % 4.5 % (20.0-51.0); MEAN CELL VOLUME 89 fl (80.0-100.0); MEAN CORPUSCULAR HEMOGLOBIN 29 pg (27.0-31.0); MEAN CORPUSCULAR HGB CONC 33 g/dl (33.0-37.0); MEAN PLATELET VOLUME 9.8 fl (7.4-10.4); MONO # 0.7 (0.1-0.6); MONO % 7.5 % (1.7-9.3); PLATELET COUNT 263 K/mm3 (130-400); REDCELL DISTRIBUTION WIDTH-CV 15.7 % (11.5-14.5)
[2020-05-04 23:50] LABS: ALBUMIN 3.4 gm/dL (3.5-5.0); BILIRUBIN,TOTAL 0.4 mg/dL (0.0-1.0); CALCIUM 8.9 mg/dL (8.4-10.2); CREATININE, serum 1.89 (0.66-1.25); POTASSIUM 3.7 mmol/L (3.4-5.0); TOTAL PROTEIN 6.1 gm/dL (6.4-8.2)
[2020-05-05 01:16] LABS: COLLECTION METHOD CLEAN CATCH
[2020-05-05 01:24] LABS: PH 5 (5-8); SQUAMOUS EPITHELIAL 0-2 /hpf; URINE APPEARANCE Cloudy; URINE BACTERIA None Seen /hpf; URINE BILIRUBIN Negative (NEGATIVE); URINE BLOOD 3+ (NEGATIVE); URINE COLOR Yellow; URINE GLUCOSE Negative (NEGATIVE); URINE KETONE Negative (NEGATIVE); URINE LEUKOCYTE ESTERASE 1+ (NEGATIVE); URINE NITRATE Negative (NEGATIVE); URINE PROTEIN(semi-quant) 1+ (NEGATIVE); URINE RBC >50 /hpf; URINE UROBILINOGEN Negative (NEGATIVE)
--- NOTE | 2020-05-05 02:20 | NUR ---
To room 344 via stretcher. Oriented to room and policy. Assessment complete. A&Ox3-periods of forgetfullness. Med rec updated per records. VS are stable. Plan of care discussed for glucose checks q1h. Verbalizes understanding. Call light in reach-CPAP on. Will monitor.
[2020-05-05 02:54] VITALS: BP 125/63; PULSE 18; TEMP 98.3
[2020-05-05] MEDS ORDERED: PREDNISONE 2.52.5 MG PO (02:57)
[2020-05-05] MEDS ORDERED: CARDIZEM CD 12120 MG PO (03:01)
[2020-05-05] MEDS ORDERED: NAMENDA5 MG PO (03:05)
[2020-05-05] MEDS ORDERED: TOPROL XL 25MG25 MG PO (03:08)
[2020-05-05] MEDS ORDERED: XARELTO15 MG PO (03:12)
--- NOTE | 2020-05-05 03:20 | NUR ---
Bedside glucose 34. D50 12.5mg given per dr order. Will recheck glucose and continue hypoglycemia protocol.
--- NOTE | 2020-05-05 03:20 | NUR ---
Bedside glucose 34. D50 20mls given per dr order. Will recheck glucose and continue hypoglycemia protocol.
--- NOTE | 2020-05-05 03:40 | NUR ---
AQUILES Harmon notified of bedside glucose of 34-initiated hypoglycemia protocol giving 12.5mg of [id number] bedside glucose of 80. This nurse needing clarification on D5W fluid orders due to fluid restriction. New orders received to start D5W@50mls/hr. Will recheck glucose in one hour.
--- NOTE | 2020-05-05 04:40 | NUR ---
Bedside glucose 33-recheck of 34. D50 20mls given per dr order. Will recheck glucose.
--- NOTE | 2020-05-05 04:56 | NUR ---
Bedside glucose 75. Next check in one hour.
--- NOTE | 2020-05-05 05:02 | NUR ---
IV fluids switched to D10W@50ml/hr due to bedside glucose not maintaining above [address] order.
--- NOTE | 2020-05-05 06:00 | NUR ---
Bedside glucose 39-double verified. D50 20mls given per hypoglycemia protocol. Will recheck in 15 minutes.
--- NOTE | 2020-05-05 06:17 | NUR ---
Bedside glucose 77. D10W continues to infuse to right AC with no s/s of infiltration. Will recheck bedside glucose in 1 hour.
--- NOTE | 2020-05-05 07:20 | NUR ---
Patient blood sugar at 45, patient alert. Given orange juice; will recheck
--- NOTE | 2020-05-05 07:44 | NUR ---
Patient eating breakfast, rechecked blood sugar at 46.
[2020-05-05 07:53] VITALS: BP 122/58; PULSE 82; TEMP 98
--- NOTE | 2020-05-05 08:20 | NUR ---
Notified Dr. Zhou of blood glucose of 48, patient has had orange juice, breakfast and oral glucose gel. New order for glucagon entered.
--- NOTE | 2020-05-05 09:31 | NUR ---
PT in to see patient.
--- NOTE | 2020-05-05 10:10 | NUR ---
Patient blood sugar at 59, patient eating peanutbutter and crakers. Will recheck blood sugar.
--- NOTE | 2020-05-05 10:29 | NUR ---
Medication reviewed with with Son in law Ede, Family updated on patient status.
[2020-05-05 11:04] LABS: CALCIUM 8.4 mg/dL (8.4-10.2); CREATININE, serum 1.58 (0.66-1.25); MAGNESIUM 1.6 mg/dL (1.6-2.3); POTASSIUM 3.7 mmol/L (3.4-5.0)
[2020-05-05 11:27] LABS: BASO % 0.2 % (0.0-2.0); EOS # 0.1 (0.0-0.7); EOS % 0.5 % (0-4.0); GRAN # 10.7 (1.4-6.5); GRAN % 83.4 % (42.2-75.2); HEMOGLOBIN 10.2 g/dl (13.5-18.0); LYMPH # 0.9 (1.2-3.4); LYMPH % 6.8 % (20.0-51.0); MEAN CELL VOLUME 89 fl (80.0-100.0); MEAN CORPUSCULAR HEMOGLOBIN 30 pg (27.0-31.0); MEAN CORPUSCULAR HGB CONC 34 g/dl (33.0-37.0); MEAN PLATELET VOLUME 10.1 fl (7.4-10.4); MONO # 1.1 (0.1-0.6); MONO % 8.4 % (1.7-9.3); PLATELET COUNT 192 K/mm3 (130-400); REDCELL DISTRIBUTION WIDTH-CV 15.8 % (11.5-14.5)
[2020-05-05 11:28] LABS: HEMATOCRIT 30.2 % (42.0-52.0)
--- NOTE | 2020-05-05 12:10 | NUR ---
Notified Dr. Zhou, blood sugar continues dropping. Increased rate of fluids and glucagon given per orders
[2020-05-05 12:17] VITALS: BP 118/61; PULSE 86; TEMP 98.5
--- NOTE | 2020-05-05 12:37 | NUR ---
Bowling Pin Setters Installer offered prayer and support with patient.
--- NOTE | 2020-05-05 13:01 | NUR ---
SW met with patient for intake. Patient states that he lives in [place] with his Mona [phone]. Patient states that at home he utilizes a walker, cane, and wheelchair periodically, and provides that he is primarily independent with ADL's. Patient states that his PCP is Dr. Bryson Stover. Patient states that he obtains his medications from [facility] and is able to afford his medications. Patient states that his is listed as his DPOA-HC and that the documentation is at his home. Patient provides that he utilizes [facility] and [facility] 1 time per week for services. SW provided that she will send both agencies updates. Patient provides that he plans to go back to his home in [place] with upon discharge. Patient states that he does not have any questions or concerns at this time in regards to discharge. SW will continue to follow.
--- NOTE | 2020-05-05 14:53 | NUR ---
Ede, son in law called for update
[2020-05-05 16:30] VITALS: BP 117/62; PULSE 84; TEMP 98.3
--- NOTE | 2020-05-05 17:08 | NUR ---
Patient up to commode, x3 assist with walker and gait belt. Bed bath provided. Has a large soft formed BM. Denies further needs at this time.
[2020-05-05] MEDS ORDERED: CORDARONE200 MG/TAB PO (17:10)
--- NOTE | 2020-05-05 18:29 | NUR ---
Assisted patient to call family. Ede updated on patient status.
--- NOTE | 2020-05-05 18:33 | NUR ---
Hospitalist notified that family would like to speak to provider. Patient has done well throughout the day. Blood sugars maintaining at 100's. Continues to deny pain. Sage maintined to dependent drainage with cloudy urine noted. BLE +2 pitting edema. BUE +1 edema. No further needs at this time. Reported off to production shift supervisor.
[2020-05-05 19:07] VITALS: BP 129/67; PULSE 77; TEMP 98.3
--- NOTE | 2020-05-05 21:00 | NUR ---
PT RESTING IN BED. ALERT BUT CONFUSED. PT RELATED POLICE CAME INTO HIS ROOM LOOKING FOR A FUGITIVE. 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 PEDAL EDEMA +3. TEDS CUTTING INTO SKIN. TEDS OFF. FEET ELEVATED ON PILLOWS. REPOSITIONED OFF COCCYX. D1O IVF INFUSING TO RT ARM BLOOD SUAGRS 120-140. CALL LIGHT IN REACH. BED ALARMS SET.
[2020-05-05 23:05] VITALS: BP 116/77; PULSE 75; TEMP 98.1
--- NOTE | 2020-05-06 01:30 | NUR ---
STOPPED D10 IVF'S PER JULIANNA KWAN ORDERS. PT CONTINUES TO WEAR CPAP. FORGETFUL BUT PLEASANT.
[2020-05-06 03:08] VITALS: BP 130/68; PULSE 70; TEMP 97.9
--- NOTE | 2020-05-06 06:23 | NUR ---
ACCUCHECK THROUGH THIS SHIFT ACCEPTABLE 130-193. PT HAS RESTED WELL THIS SHIFT WITH CPAP. 650CC UO PER VILLANUEVA. EDEMA REMAINS +2-3.
[2020-05-06 07:29] VITALS: BP 121/76; PULSE 88; TEMP 97.5
[2020-05-06 08:01] LABS: BASO % 0.1 % (0.0-2.0); EOS # 0.1 (0.0-0.7); GRAN # 6.6 (1.4-6.5); GRAN % 78.6 % (42.2-75.2); LYMPH # 0.9 (1.2-3.4); LYMPH % 10.2 % (20.0-51.0); MEAN CELL VOLUME 90 fl (80.0-100.0); MEAN CORPUSCULAR HGB CONC 33 g/dl (33.0-37.0); MEAN PLATELET VOLUME 9.9 fl (7.4-10.4); MONO # 0.8 (0.1-0.6); MONO % 9.4 % (1.7-9.3); PLATELET COUNT 229 K/mm3 (130-400); RED BLOOD COUNT 3.37 M/mm3 (4.20-5.60); REDCELL DISTRIBUTION WIDTH-CV 15.9 % (11.5-14.5)
[2020-05-06 08:05] LABS: CALCIUM 8.2 mg/dL (8.4-10.2); CREATININE, serum 1.49 (0.66-1.25); POTASSIUM 3.4 mmol/L (3.4-5.0)
[2020-05-06 08:06] LABS: HEMATOCRIT 30.3 % (42.0-52.0); HEMOGLOBIN 9.9 g/dl (13.5-18.0); MEAN CORPUSCULAR HEMOGLOBIN 29 pg (27.0-31.0)
--- NOTE | 2020-05-06 08:48 | NUR ---
Patient awake & alert, asking when doctor will see him because he is wanting to get discharged home, reports he has things to take care of at home. Patient tolerated breakfast. He is noted to be quite shaky. He was assisted to chair with walker. He was a heavy one assist. Very slow to move. Int. Assist with Hygiene
[2020-05-06] MEDS ORDERED: GLUCOTROL 5M5 MG/TAB PO (10:34)
--- NOTE | 2020-05-06 12:01 | NUR ---
SW update: Faxed DC order to [facility] with a resumption of care.
[2020-05-06 12:41] VITALS: BP 128/46; PULSE 68; TEMP 98.2
[2020-05-06 12:43] VITALS: BP 124/74; PULSE 84; TEMP 97.3
--- NOTE | 2020-05-06 13:00 | NUR ---
rounded. He spoke to patient family plans for discharge since blood sugars stabalized. Glipizied to stopped. Independent Living Specialist did check patient sugars as he was eating- made aware of elevated sugar. Sliding scale ordered. Patient blood sugar re checked & it has come down. Patient not wanting to take insulin. Patient given discharge education & son given discharge paperwork as well. Patient dressed for discharge & Int dc. Patient did have a bowel movement prior to discharge & pericare was provided with a new brief. Patient was ambulatory with walker to the bathroom & he was very weak 2 assist. Patient son verblaized this is his normal with his lewy body dememtia. Patient son taking him home, patient taking all belongings including his cpap.
== END 2020-05-06 15:07 | disposition home health service (06) ==
LOC: COL.ER 22:22 → SURG 05-05 01:13
PROVIDERS: Family Medicine; Hospitalist; Physician Assistant; ADMIT Student in an Organized Health Care Education/Training Program
DX: E11.649 Type 2 diabetes mellitus with hypoglycemia without coma (principal); E11.22 Type 2 diabetes mellitus with diabetic chronic kidney disease; N18.9 Chronic kidney disease, unspecified; E87.2 Acidosis; N39.0 Urinary tract infection, site not specified; G25.0 Essential tremor; F32.9 Major depressive disorder, single episode, unspecified; F41.9 Anxiety disorder, unspecified; G47.33 Obstructive sleep apnea (adult) (pediatric); I49.5 Sick sinus syndrome; E78.5 Hyperlipidemia, unspecified; N40.0 Benign prostatic hyperplasia without lower urinary tract symptoms; D64.9 Anemia, unspecified; I48.91 Unspecified atrial fibrillation; I48.92 Unspecified atrial flutter; Z95.0 Presence of cardiac pacemaker; Z79.4 Long term (current) use of insulin; Z96.0 Presence of urogenital implants; Z86.73 Personal history of transient ischemic attack (TIA), and cerebral infarction without residual deficits; Z87.891 Personal history of nicotine dependence; Z79.01 Long term (current) use of anticoagulants
CPT/HCPCS: G0378; J1610; J7070; J7512

== ENCOUNTER 2020-05-16 21:47 | Inpatient (IN) | payer MEDICARE, BC ==
[~2020-05-16] VITALS: Ht 180.3 cm; Wt 85.0 kg
[~2020-05-16 21:47] MED LIST changes: +CARDIZEM CD 12120 MG PO; +CORDARONE200 MG/TAB PO; +GLUCOTROL 5M5 MG/TAB PO; +NAMENDA5 MG PO; +PREDNISONE 2.52.5 MG PO; +TOPROL XL 25MG25 MG PO
[2020-05-16 22:00] LABS: BASO % 0.2 % (0.0-2.0); EOS % 0.1 % (0-4.0); GRAN # 9.9 (1.4-6.5); GRAN % 81.9 % (42.2-75.2); HEMOGLOBIN 10.6 g/dl (13.5-18.0); LYMPH # 0.9 (1.2-3.4); LYMPH % 7.3 % (20.0-51.0); MEAN CELL VOLUME 90 fl (80.0-100.0); MEAN CORPUSCULAR HEMOGLOBIN 30 pg (27.0-31.0); MEAN CORPUSCULAR HGB CONC 33 g/dl (33.0-37.0); MEAN PLATELET VOLUME 10.2 fl (7.4-10.4); MONO # 1.2 (0.1-0.6); MONO % 9.6 % (1.7-9.3); PLATELET COUNT 198 K/mm3 (130-400); RED BLOOD COUNT 3.59 M/mm3 (4.20-5.60); REDCELL DISTRIBUTION WIDTH-CV 15.9 % (11.5-14.5)
[2020-05-16 22:01] LABS: HEMATOCRIT 32.4 % (42.0-52.0)
[2020-05-16 22:06] LABS: INR 3.6 (0.8-3.0); PROTHROMBIN TIME 40.4 SECONDS (9.7-12.8)
[2020-05-16 22:12] LABS: ALANINE AMINOTRANSFERASE 23 U/L (4-49); ALBUMIN 3.5 gm/dL (3.5-5.0); ALKALINE PHOSPHATASE 59 U/L (50-136); ANION GAP 9 mmol/L (7-16); AST,SGOT 33 U/L (15-37); BILIRUBIN,TOTAL 0.6 mg/dL (0.0-1.0); BLOOD UREA NITROGEN 34 mg/dL (9-20); CALCIUM 8.9 mg/dL (8.4-10.2); CARBON DIOXIDE 29 mmol/L (22-30); CHLORIDE 97 mmol/L (98-107); CREATININE, serum 1.77 (0.66-1.25); GLUCOSE 149 mg/dL (74-106); POTASSIUM 3.5 mmol/L (3.4-5.0); SODIUM 134 mmol/L (137-145); TOTAL PROTEIN 6.3 gm/dL (6.4-8.2)
[2020-05-16 22:21] LABS: TROPONIN-I < 0.012 ng/mL (0.000-0.035)
[2020-05-16 22:23] LABS: C-REACTIVE PROTEIN 12.5 mg/dL (0.0-0.9)
[2020-05-16 22:26] LABS: COLLECTION METHOD CATHETER
[2020-05-16 23:05] LABS: MUCOUS Present /lpf; PH 5 (5-8); SQUAMOUS EPITHELIAL None Seen /hpf; URINE APPEARANCE Cloudy; URINE BACTERIA None Seen /hpf; URINE BILIRUBIN Negative (NEGATIVE); URINE BLOOD 3+ (NEGATIVE); URINE COLOR Yellow; URINE GLUCOSE Negative (NEGATIVE); URINE KETONE Trace (NEGATIVE); URINE LEUKOCYTE ESTERASE 3+ (NEGATIVE); URINE NITRATE Negative (NEGATIVE); URINE PROTEIN(semi-quant) 2+ (NEGATIVE); URINE RBC >50 /hpf; URINE UROBILINOGEN Negative (NEGATIVE)
[2020-05-16] MEDS ORDERED: DIFLUCAN200 MG PO (23:39)
[2020-05-17] VITALS (7 sets, daily range): BP systolic 112–139; BP diastolic 64–89; PULSE 70–89; TEMP 97.8–100
--- NOTE | 2020-05-17 02:00 | NUR ---
Pt arrived to medical unit around 0100. Report received from ED nurse, Cheri. Assessment and med rec completed. Pt alert, oriented to person, time, and place but unable to recall situation leading to hospital admission or current medical diagnoses. Generalized weakness and fine hand tremors noted bilaterally. Hand arc furnace operator equal, PERRLA, follows commands. Generalized bruising noted over bilateral upper extremities. INT to right AC intact, flushes easily. Sage catheter in place, output yellow and cloudy. Pt reports occasional numbness and tingling BUE. Denies pain at this time.
[2020-05-17] MEDS ORDERED: PACERONE200 MG PO (02:18)
[2020-05-17 02:49] LABS: ARTERIAL BLD GAS O2 SATURATION 92.4 % (92-100); ARTERIAL BLD GAS TCO2 CT 30.6; ARTERIAL BLOOD GAS BASE EXCESS 5.5 (-2-2); ARTERIAL BLOOD GAS HCO3 29.4 meq/L (22-26); ARTERIAL BLOOD GAS PCO2 40.2 mmHg (35-45); ARTERIAL BLOOD GAS pH 7.48 (7.35-7.45)
[2020-05-17 03:33] LABS: MAGNESIUM 1.5 mg/dL (1.6-2.3); PHOSPHOROUS 3.5 mg/dL (2.5-4.5)
[2020-05-17 04:04] LABS: TSH w REFLEX 1.83 uIU/mL (0.465-4.680)
--- NOTE | 2020-05-17 06:01 | NUR ---
Potassium 60 mEq given per protocol. Sage catheter replaced. Urology consult ordered, will call this AM. Pt has been A&O x4. No reports of pain.
[2020-05-17 06:36] LABS: BASO % 0.2 % (0.0-2.0); EOS % 0.1 % (0-4.0); GRAN # 6.6 (1.4-6.5); GRAN % 74.6 % (42.2-75.2); HEMOGLOBIN 10.2 g/dl (13.5-18.0); LYMPH % 11.1 % (20.0-51.0); MEAN CELL VOLUME 90 fl (80.0-100.0); MEAN CORPUSCULAR HEMOGLOBIN 29 pg (27.0-31.0); MEAN CORPUSCULAR HGB CONC 32 g/dl (33.0-37.0); MEAN PLATELET VOLUME 10.3 fl (7.4-10.4); MONO # 1.1 (0.1-0.6); MONO % 12.9 % (1.7-9.3); PLATELET COUNT 178 K/mm3 (130-400); RED BLOOD COUNT 3.54 M/mm3 (4.20-5.60); REDCELL DISTRIBUTION WIDTH-CV 15.9 % (11.5-14.5)
[2020-05-17 06:37] LABS: HEMATOCRIT 31.9 % (42.0-52.0)
[2020-05-17 08:22] LABS: CALCIUM 8.5 mg/dL (8.4-10.2); CREATININE, serum 1.63 (0.66-1.25); POTASSIUM 3.3 mmol/L (3.4-5.0)
--- NOTE | 2020-05-17 10:01 | NUR ---
PT AOX4. DENIES PAIN. HAD BM THIS AM. REPORTTED SOME NAUSEA AROUND 0830 RESOLVED WITH ZOFRAN. TOLERATED 50% BREAKFAST AND MEDS. VILLANUEVA INTACT AND DRAINING CLEAR YELLOW URINE WITH OCCASIONAL SEDIMENT. EDEMA TO BLE. NO OPEN SKIN AREAS. 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 REQUIRED ASSISTANCE WITH MEAL.
--- NOTE | 2020-05-17 16:49 | NUR ---
Spray Cementer met with patient and patient's , Mona (ph#[phone]) to discuss discharge planning. Patient lives in [place] with Mona and reports his two grandsons, Daryl and Ra have been staying with them to provide assistance. Mona states their children and children's spouses have also been taking turns staying with them. Patient has [facility] for PT/OT/Nursing and also has [facility] overnights from 9p-9a. Patient has a front wheeled walker, wheelchair, and a walk in tub with grab bars. Patient needs assistance with walking, bathing, and dressing which he receives from family. Mona feels that they are managing well at home at this time. Patient sees Dr. Stover for primary care and Mona reports they saw Dr. Stover about a week ago. Patient obtains medications from [facility] with no difficulties. Patient does not have DPOA-HC in EMR and his , Mona is next of kin. Mona reports plan for discharge is to return home with current supports. However, Mona states that their son, Mp (ph#[phone]) is working on getting patient to [facility] [place]. SAHRA contacted Mp who provided contact information for [facility] and advised he has been working with Tisha (ph#[phone]) in admissions. SAHRA faxed clinical updates to fax #[phone]. SAHRA contacted DAYDAY BanksCM at [facility] and left a message. SAHRA contacted Lynda at [facility] who confirmed they are providing services to patient. SAHRA will continue to follow.
--- NOTE | 2020-05-17 18:27 | NUR ---
PT TO BE ON 1.5L FLUID RESTRICTION PER DR FELDER'S NOTE ON 05/17 2/2 CHF, ON DUIRETICS AND FLUID RETENTION. ORDER ADJUSTED IN [facility].
--- NOTE | 2020-05-17 19:05 | NUR ---
Received report from Praful. Seen patient awake, lying in bed. His at the bedside. He is alert and oriented. Tremors visibly noted on both upper extremities. With INT on right AC. With valerio catheter. He denies pain. Call light within reach.
[2020-05-18] VITALS (7 sets, daily range): BP systolic 103–134; BP diastolic 63–80; PULSE 73–89; TEMP 97.3–99.1
--- NOTE | 2020-05-18 07:02 | NUR ---
Patient had uneventful night. He had been repositioned often. He denies pain. Endorsed to Eliza.
[2020-05-18 08:03] LABS: CALCIUM 8.5 mg/dL (8.4-10.2); CREATININE, serum 1.56 (0.66-1.25); POTASSIUM 3.7 mmol/L (3.4-5.0)
--- NOTE | 2020-05-18 10:38 | NUR ---
Rounds with Dr. Arrieta/Khushbu BOCANEGRA/Kenzie RODRÍGUEZ/CM. Discussed goals of care with Mona on the phone at bedside. Per Mona-she agreed that [facility] could be called as a "plan B". Khushbu BOCANEGRA has faxed information to [facility] at [facility]. Mona stated she wanted I[facility] at [facility] as their first choice. I informed Khushbu of Mona's choices. She stated she agreed for pt to go to [facility] if I[facility] did not accept pt.
--- NOTE | 2020-05-18 11:13 | NUR ---
Patient is alert and oriented. denies any pain. HR marko. EKG QTc is 459. INT discontinued. Patient discharged with new order Sotalol 80mg BID. Home medication reconciled with patient: Metoprolol was discontinued. Patient discharged with family member.
--- NOTE | 2020-05-18 13:33 | NUR ---
Late Entry-Called Rena's daughter- Mona had told her "she did not understand the conversation with Dr. Arrieta". -Abeba's number. Reviewed discharge plan with Abeba and she also agreed with the plan to contact [facility] at [facility] first and have a second option of going to [facility]. Reviewed the differences of care between [facility]. Abeba voiced understanding and I answered all of her questions.
--- NOTE | 2020-05-18 16:05 | NUR ---
Transit Operator attended clinical rounds with the team. Patient is open to referral being sent to [facility] if [facility] cannot accept. SAHRA contacted Colleen at [facility] and faxed referral. SAHRA then collaborated with Tisha at [facility] who advised they are declining referral as they do not feel patient is appropriate for [facility]. SAHRA provided this update to patient's daughter, Abeba and patient's son, Mp. Both Abeba and Mp are agreeable to discharge to [facility] in [place] if they are able to accept. SAHRA met with patient and patient's , Mona to provide update. Patient and Mona verbalized understanding and are agreeable to [facility] in [place] if they are able to accept. SAHRA contacted Colleen again and left a message including contact information for patient's two children Abeba and Mp. SAHRA will continue to follow.
--- NOTE | 2020-05-18 19:35 | NUR ---
Patient alert and partially oriented this am, became oriented *4 later in the afternoon. denies any pain. valerio catherer free of any kink through this shift. Per ornamental iron worker helper, pending request at [facility]. Swabbed patient of Covid19 today. visit at bedside. educated patient and on how to prevent Infection with Valerio catherer in place. Patient resting in chair at this time.
--- NOTE | 2020-05-18 22:00 | NUR ---
Pt assessment completed, charted, roomair. No N/V/D, tingling, numbness, pain, SOA as per pt. Meds provided as per MAR, tolerated well. Helped settled on his bed, call light on reach. No further needs at this time.
[2020-05-19 03:27] VITALS: BP 135/78; PULSE 86; TEMP 98.1
--- NOTE | 2020-05-19 06:33 | NUR ---
Pt had an uneventful night, morning meds provided. No further needs at this time.
[2020-05-19 07:54] VITALS: BP 135/72; PULSE 99; TEMP 97.8
--- NOTE | 2020-05-19 08:13 | NUR ---
RECEIVED BEDSIDE REPORT FROM OFF GOING NURSE. PATIENT IS RESTING IN BED AND IS ASKING FOR UNDERWEAR. HE IS ALERT AND CONFUSED. VILLANUEVA IS DEPENDENTLY DRAINING CLOUDY YELLOW URINE. IS SECURED WITH STAT LOCK TO RIGHT LEG. DENIES PAIN. CALL LIGHT IS WITHIN REACH.
[2020-05-19 11:22] VITALS: BP 133/68; PULSE 79; TEMP 98.1
--- NOTE | 2020-05-19 14:59 | NUR ---
Called into room to assist with clarification. Pt and state pt was not helped overnight, pt was calling and calling on the call button and even considered calling the police so he could get helped to get out here. Asked him to show me where he pushed the button and he repeatedly showed me and said "this number 8 or number 9 on here"- (this is the channel changer), explained the red nurse button is the only wayt to call the nurse. Pt states no one helped him with this CPAP last night, called [facility] and they confirmed he refusted it. Pt and state he has not been bathed, confirmed with dayshift bath has been provided today. states teeth have not been brushed, confirmed teeth will be brushed immediately after supper, removal of GLADYS hose, and helped to bed from recliner. Wrote this plan on the communication board in the room as well as 's number. and pt agreeable with plan for tonight.
[2020-05-19 17:14] VITALS: BP 136/76; PULSE 73; TEMP 97.5
--- NOTE | 2020-05-19 19:00 | NUR ---
Nightshift here, relayed plan for night with them. Discusse previous night, Graham who was his nurse for past night and tonight confirmed that there were no call lights pushed by patient last night and pt was fine during night and had no complaints. Pt and appear surprised by this but agreeable. Discussed with that there is some evidence of confusion. boat mechanic charge nurse and patient nurse will go and meet patient shortly.
--- NOTE | 2020-05-19 19:32 | NUR ---
REPORT GIVEN TO ANNE GALE
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
[2020-05-19 20:00] VITALS: BP 115/71; PULSE 83; TEMP 98.2
--- NOTE | 2020-05-19 22:30 | NUR ---
Pt assessment completed, charted, roomair. Meds provided as per DEC, tolerated well. Took off GLADYS, helped to brush his teeth. Respiratory staff helped to set up his cpap and applied. Helped to settled on his bed, called light on reach, no further needs at this time.
[2020-05-20] VITALS (7 sets, daily range): BP systolic 113–144; BP diastolic 64–79; PULSE 76–93; TEMP 97.4–98.3
--- NOTE | 2020-05-20 03:56 | NUR ---
RN SAYS PATIENT TOOK OFF CPAP AROUND 2 AM. WENT AND DISCUSSED WITH PATIENT ABOUT CPAP, AND SAYS THAT THE MASK WAS NOT FITTING CORRECTLY. I SAID I COULD HELP ADJUST TO MAKE IT MORE COMFORTABLE FOR HIM, BUT PATIENT STILL DID NOT WANT TO PLACE CPAP BACK ON. RN WAS NOTIFIED.
--- NOTE | 2020-05-20 06:09 | NUR ---
Pt had an uneventful night, slept through out the night. Used cpap machine since [id number]. Pt said he does not want to use the cpap after 0200, slept without and had unlabor breathing.
[2020-05-20 08:09] LABS: BASO % 0.3 % (0.0-2.0); GRAN # 8.4 (1.4-6.5); GRAN % 79.1 % (42.2-75.2); LYMPH # 0.9 (1.2-3.4); MEAN CELL VOLUME 89 fl (80.0-100.0); MEAN CORPUSCULAR HGB CONC 32 g/dl (33.0-37.0); MEAN PLATELET VOLUME 10.7 fl (7.4-10.4); MONO # 1.3 (0.1-0.6); MONO % 11.8 % (1.7-9.3); PLATELET COUNT 218 K/mm3 (130-400); RED BLOOD COUNT 3.44 M/mm3 (4.20-5.60); REDCELL DISTRIBUTION WIDTH-CV 15.5 % (11.5-14.5)
[2020-05-20 08:13] LABS: ALBUMIN 3.1 gm/dL (3.5-5.0); BILIRUBIN,TOTAL 0.7 mg/dL (0.0-1.0); CALCIUM 8.8 mg/dL (8.4-10.2); CREATININE, serum 1.68 (0.66-1.25); MAGNESIUM 1.7 mg/dL (1.6-2.3); POTASSIUM 3.1 mmol/L (3.4-5.0); TOTAL PROTEIN 5.7 gm/dL (6.4-8.2)
[2020-05-20 08:19] LABS: HEMATOCRIT 30.7 % (42.0-52.0); HEMOGLOBIN 9.9 g/dl (13.5-18.0); MEAN CORPUSCULAR HEMOGLOBIN 29 pg (27.0-31.0)
--- NOTE | 2020-05-20 09:40 | NUR ---
PATIENT IS AWAKE AND ALERT, IS NOTED TO BE CONFUSED. DID NOT ANSWER ORIENTATION QUESTONS APPROPRIATELY. SEEMED TO NOT BE ABLE TO FORM APPROPRIATE WORDS FOR CONVERSATION. HE WAS ASSISTED TO THE COMMODE AND THEN TO THE RECLINER. TEETH WERE BRUSHED, FACE WASHED AND LINENS CHANGED.
--- NOTE | 2020-05-20 15:14 | NUR ---
Pt has been very confused all day. Had to reorient on several occasions. Pt unabel to orient to place, date, or president. has no recollection of almost 1 hour long conversation with me yesterday and stated today was his first day ever being in hospital. Trying to get out of chair often, confused about having catheter in place. When arrived notified of confusion today. called out and asked about getting meals delivered to her at night with . Discussed our meal voucher system and how to pay for the vouchers, she states that previous hospitalizations she was able to just receive meals at supper and pay for them at his discharge. Verbalized that this is not our policy and that i would call the kitchen. Upon talking to digital content manager Joby, she confirmed this is not our policy and that she believes during the previous hospitalization Mona never paid the final "bill". Joby called Mona and spoke to her in person regarding voucher system to encourage her to purchase vouchers prior to ordering meals. She purchased voucher for supper tonight.
--- NOTE | 2020-05-20 15:28 | NUR ---
PATIENT CONTINUES TO HAVE CONFUSION AND INAPROPRIATE CONVERSATION STATING THINGS IN "PEOPLE DRINK MILK OUT OF SHOES," AND OTHER RANDOM THINGS.
--- NOTE | 2020-05-20 19:10 | NUR ---
Received report from Cindy. Seen patient awake, lying in bed. at the bedside. They are waiting for their dinner to be delivered. With Sage catheter draining cloudy, yellow urine. He denies pain. Call light within reach.
--- NOTE | 2020-05-20 20:40 | NUR ---
Night meds given. Esteban hose stockings removed bilaterally. Patient denies pain. This nurse asked questions about where he was right now and his birthday and he was able to answer. He knows he is in [facility] and in room 357. Patient was repositioned and boost up in bed. INT on left forearm was flushed with NS. Call light within reach.
--- NOTE | 2020-05-20 23:00 | NUR ---
Patient is trying to get out of bed. He says he needs to fix the roof because it is leaking. Re-oriented patient that he is in the hospital and it's already night time. Repositioned patient and boost him up in bed. Pillow placed on right side.
--- NOTE | 2020-05-21 00:01 | NUR ---
PT REFUSING TO WEAR OWN HOME CPAP IS ON KAREN WELL WITH NO DISTRESS NOTED AT THIS TIME.
--- NOTE | 2020-05-21 01:00 | NUR ---
Patient tried to get out of bed again. re-oriented patient that he's in the hospital. He asked the aide and this nurse if we live in this place and how come he was in here as well. Changed patient's briefs and boost him up in bed. Catheter care done.
[2020-05-21 04:00] VITALS: BP 131/85; PULSE 79; TEMP 98.5
--- NOTE | 2020-05-21 06:31 | NUR ---
Patient had intermittent sleep last night as he has been trying to get out of bed and he became confused. Re-oriented patient a couple times until he fell asleep. Denies pain. Will endorse to day shift nurse.
[2020-05-21 06:35] LABS: BASO % 0.4 % (0.0-2.0); GRAN # 8.5 (1.4-6.5); GRAN % 77.5 % (42.2-75.2); LYMPH % 9.4 % (20.0-51.0); MEAN CELL VOLUME 88 fl (80.0-100.0); MEAN CORPUSCULAR HGB CONC 33 g/dl (33.0-37.0); MEAN PLATELET VOLUME 10.3 fl (7.4-10.4); MONO # 1.3 (0.1-0.6); MONO % 12.1 % (1.7-9.3); PLATELET COUNT 216 K/mm3 (130-400); RED BLOOD COUNT 3.37 M/mm3 (4.20-5.60); REDCELL DISTRIBUTION WIDTH-CV 15.5 % (11.5-14.5)
[2020-05-21 06:45] LABS: HEMATOCRIT 29.8 % (42.0-52.0); HEMOGLOBIN 9.7 g/dl (13.5-18.0); MEAN CORPUSCULAR HEMOGLOBIN 29 pg (27.0-31.0)
[2020-05-21 06:49] LABS: CALCIUM 8.5 mg/dL (8.4-10.2); CREATININE, serum 2.02 (0.66-1.25); MAGNESIUM 1.7 mg/dL (1.6-2.3); POTASSIUM 3.1 mmol/L (3.4-5.0)
--- NOTE | 2020-05-21 07:21 | NUR ---
PATIENT IS RESTING QUIETLY IN BED, EYES ARE CLOSED. BED IS IN LOW POSITION, ALARM IS OBSERVED TO BE ON, CALL LIGHT IS WITHIN REACH.
[2020-05-21 07:52] VITALS: BP 145/86; PULSE 79; TEMP 98.3
--- NOTE | 2020-05-21 10:17 | NUR ---
Rounding with team and Dr. Zhou- tried to call Abeba to include in discussion-no answer. Then called son, Mp, and he answered and is on speaker phone. Dr. Zhou reviewed case/discharge plans/antibiotic therapy. Discussed plans for [facility] and family per Mp is still in agreement with this.
[2020-05-21 11:09] VITALS: BP 134/81; PULSE 90; TEMP 97.8
[2020-05-21 13:37] VITALS: BP 134/81; PULSE 90; TEMP 97.8
--- NOTE | 2020-05-21 13:52 | NUR ---
Legislative Assistant attended clinical rounds with the team and patient's son, Mp was on speaker phone during. SW collaborated with [facility] at [facility] who advised patient qualified and that there was a bed available today. [facility] coordinated with [facility] to set transport time for 1330. SW contacted patient's son, Mp who is in agreement with discharge plan. [facility] met with patient and patient's , Mona who are also in agreement. SW obtained signatures on EMS forms and forms were placed on patient's chart. [facility] faxed discharge orders and negative COVID results to [facility] at [facility]. No additional needs at this time.
--- NOTE | 2020-05-21 16:04 | NUR ---
PATIENT DISCHARGED TO [facility] AM[facility]ULANCE. LEFT AT 1500. IV HAS BEEN LEFT IN PLACE TO LEFT FOREARM PER EMS REQUEST. HOME MEDICATIONS RETURNED TO . PERSONAL BELONGINGS AND C-PAP SENT WITH PATIENT IN AMBULANCE.
== END 2020-05-21 15:00 | DRG 690 ==
LOC: COL.ER 21:47 → MEDICAL 22:49
PROVIDERS: Emergency Medicine; Family Medicine; Nurse Practitioner Family; ADMIT Student in an Organized Health Care Education/Training Program
DX: N39.0 Urinary tract infection, site not specified (principal); G93.49 Other encephalopathy; F05 Delirium due to known physiological condition; I48.91 Unspecified atrial fibrillation; G47.33 Obstructive sleep apnea (adult) (pediatric); E11.22 Type 2 diabetes mellitus with diabetic chronic kidney disease; N18.9 Chronic kidney disease, unspecified; I50.9 Heart failure, unspecified; N40.1 Benign prostatic hyperplasia with lower urinary tract symptoms; R33.8 Other retention of urine; Z95.0 Presence of cardiac pacemaker; G20 Parkinson's disease; F02.80 Dementia in other diseases classified elsewhere, unspecified severity, without behavioral disturbance, psychotic disturbance, mood disturbance, and anxiety; E87.6 Hypokalemia; E78.5 Hyperlipidemia, unspecified; I49.5 Sick sinus syndrome; D63.1 Anemia in chronic kidney disease; F32.9 Major depressive disorder, single episode, unspecified; F41.9 Anxiety disorder, unspecified; R09.02 Hypoxemia; Z79.01 Long term (current) use of anticoagulants; Z86.73 Personal history of transient ischemic attack (TIA), and cerebral infarction without residual deficits
CPT/HCPCS: 99223-AI; 99233-AI; 99239; J0692; J0696; J1815; J2405; J3475; J3480; J7030